=== PATIENT | female | born 1985 | race Caucasian/White ===

== ENCOUNTER 2023-12-07 03:29 | Emergency (ER) | payer BC, SELFPAY ==
[2023-12-07] VITALS (12 sets, daily range): BP systolic 118–150; BP diastolic 72–107; PULSE 82–96; O2SAT 96–99; BMI 32.0
--- NOTE | 2023-12-07 03:50 | ECG_ITS ---
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
--- NOTE | 2023-12-07 03:51 | CT_ITS ---
The [address] [address] Patient Name: JADA GILES MRN: [id number] date: 1985 Sex: F Assigned Patient Location: ER Current Patient Location: ER Accession/Order Number: [id number] Exam Date: 12/07/2023 04:08 Report Date: 12/07/2023 04:36 At the request of: AKOSUA SHORT Procedure: CT head/brain wo con EXAMINATION: CT Head without Contrast TECHNIQUE: Multiple axial noncontrast images of the brain were obtained and reformatted according to the standard protocol. Q DOCUMENTATION: At least one of the following dose reduction techniques was utilized: Iterative reconstruction, and/or Automatic Exposure Control, and/or mA/kV adjustment based on body size. INDICATION: Dizziness COMPARISON: None FINDINGS: Intracranial hemorrhage: No CT evidence of intraparenchymal, intraventricular, or extraaxial hemorrhage. Infarct/Vascular: No CT evidence of acute transcortical infarctions. Intracranial Mass: No evidence of intracranial mass. CSF Spaces: The ventricles, sulci, and cisterns are normal. Calvarium and Scalp: Unremarkable. Mastoid Air Cells: Clear. Paranasal Sinuses: Visualized paranasal sinuses are clear. Orbits: Orbits are unremarkable. CT/CT head/brain wo con IMPRESSION: No CT evidence of acute intracranial abnormalities. Electronically authenticated by: SHUKRI LOCKWOOD Date: 12/07/2023 04:36
--- NOTE | 2023-12-07 03:51 | ED.GENADUL1 ---
HPI HPI - General Adult General Chief complaint: Dizziness Stated complaint: dizziness Time Seen by Provider: 12/07/23 03:43 Source: patient Mode of arrival: walk-in Limitations: no limitations History of Present Illness HPI narrative: 38-year-old female presents for dizziness. She describes the dizziness as being lightheaded rather than spinning. She developed symptoms about 10 or 11 days ago and was seen at an urgent care center and was told she had fluid behind her right eardrum. She was put on Claritin-D and a steroid and Flonase and she got better for about a day but then it came back. She states that her right ear is slightly muffled in the left ear has no symptoms. She does not have a fever or sore throat or palpitations. No vomiting or diarrhea or abdominal pain or chest pain. Related Data Previous Rx's ?Medication ?Instructions ?Recorded amoxicillin 500 mg capsule 500 mg PO TID 10 days #30 caps 12/07/23 meclizine 25 mg tablet 25 mg PO TID PRN dizziness #20 tabs 12/07/23 Allergies Allergy/AdvReac Type Severity Reaction Status Date / Time latex Allergy Unknown Unknown Verified 12/07/23 03:38 levofloxacin [From Levaquin] Allergy Unknown Verified 12/07/23 03:38 Opioid HPI Opioid Management Most Recent Opioid Data: No Data to Display Review of Systems ROS Narrative A ten point review of systems is negative except as noted above. Exam Narrative Exam Narrative: Nurses note and vital signs reviewed and patient is not hypoxic. General: The patient appears well and in no apparent distress. Patient is resting comfortably on cart. Skin: Warm, dry, no pallor noted. There is no rash noted. Head: Normocephalic, atraumatic Eye: Normal conjunctiva, no drainage Ears, Nose, Mouth, and Throat: oral mucosa is moist. Nares patent. TM and external canal are normal in appearance. The right TM has a good light reflex but there is a large effusion behind the TM. External canal is normal. Cardiovascular: Regular Rate and Rhythm Respiratory: Patient is in no distress, no accessory muscle use, lungs are clear to auscultation, no wheezing, rales or rhonchi Back: non-tender GI: Soft and nontender Musculoskeletal: The patient has no evidence of calf tenderness, no pitting edema, symmetrical pulses noted bilaterally Neurological: A&O, normal speech; upper and lower extremity strength intact and symmetric Psychiatric: Cooperative Constitutional Vital Signs, click to edit/add: Last Vital Signs Pulse 87 12/07/23 04:02 Resp 17 12/07/23 04:02 BP 118/72 12/07/23 04:02 Pulse Ox 99 12/07/23 04:02 O2 Del Method Room Air 12/07/23 03:32 Course Vital Signs Vital signs: Vital Signs Pulse Rate 94 H 12/07/23 03:32 Respiratory Rate 18 12/07/23 03:32 Blood Pressure 147/99 H 12/07/23 03:32 Pulse Oximetry 98 12/07/23 03:32 Oxygen Delivery Method Room Air 12/07/23 03:32 Pulse Rate 87 12/07/23 04:02 Respiratory Rate 17 12/07/23 04:02 Blood Pressure 118/72 12/07/23 04:02 Pulse Oximetry 99 12/07/23 04:02 Oxygen Delivery Method Room Air 12/07/23 03:32 Medical Decision Making MDM Narrative Medical decision making narrative: Her workup including CT brain is negative. She will be discharged home on amoxicillin for otitis media and Antivert. Treatment diagnosis and follow-up were discussed with the patient. Differential Diagnosis Differential Diagnosis: Otitis media, otitis externa, foreign body, ear effusion Lab Data Lab results reviewed: Yes I reviewed the patient's lab results Labs: Lab Results 12/07/23 Range/Units 03:43 WBC 10.1 (4.0-11.0) 10^3/uL RBC 4.41 (4.20-5.40) 10^6/uL Hgb 13.6 (12.0-16.0) g/dL Hct 40.3 (36.0-48.0) % MCV 91.4 (81.0-99.0) fL MCH 30.8 (26.7-34.0) pg MCHC 33.7 (29.9-35.2) g/dL RDW 12.5 (11.0-15.0) % Plt Count 272 (150-450) 10^3/uL MPV 11.1 (9.5-13.5) fL Neut % (Auto) 69.0 (43.0-75.0) % Lymph % (Auto) 24.1 (20.5-60.0) % [place] % (Auto) 5.8 (1.7-12.0) % Eos % (Auto) 0.5 L (0.9-7.0) % Baso % (Auto) 0.3 (0.2-2.0) % Neut # (Auto) 7.0 H (1.4-6.5) 10^3/uL Lymph # (Auto) 2.4 (1.2-3.8) 10^3/uL [place] # (Auto) 0.6 (0.3-0.8) 10^3/uL Eos # (Auto) 0.1 (0.0-0.7) 10^3/uL Baso # (Auto) 0.0 (0.0-0.1) 10^3/uL Abs Immat Gran (auto) 0.03 (0.00-0.03) 10^3/uL Imm/Tot Granulo (auto) 0.3 (0.0-0.5) % Sodium 136 (136-145) mmol/L Potassium 3.5 (3.5-5.1) mmol/L Chloride 100 (98-107) mmol/L Carbon Dioxide 27.1 (21.0-32.0) mmol/L Anion Gap 12.4 BUN 13.0 (7.0-18.0) mg/dL Creatinine 0.90 (0.55-1.02) mg/dL Est GFR ( Amer) >60 (>=60) Est GFR (Non-Af Amer) >60 (>=60) BUN/Creatinine Ratio 14.4 Glucose 110 H (74-106) mg/dL Calcium 9.2 (8.5-10.1) mg/dL Imaging Data CT scan - head: Radiologist's impression: ITS Impressions Head CT 12/07/23 03:51 IMPRESSION: No CT evidence of acute intracranial abnormalities. Electronically authenticated by: SHUKRI LOCKWOOD Date: 12/07/2023 04:36 ECG Data Attestation: I personally reviewed and interpreted this ECG as follows: (EKG on my interpretation shows normal sinus rhythm with a rate of 90 and no acute change.) Discharge Plan Discharge Stand Alone Forms: Portal Instructions Chief Complaint: Dizziness Clinical Impression: Acute right otitis media Patient Disposition: Home, Self-Care Time of Disposition Decision: 04:44 Prescriptions / Home Meds: New amoxicillin 500 mg capsule 500 mg PO TID 10 Days Qty: 30 0RF meclizine 25 mg tablet 25 mg PO TID PRN (Reason: dizziness) Qty: 20 0RF Print Language: Mauritanian Instructions: Ear Infection (ED) Referrals: Jessica Dsouza MD [Primary Care Provider] - 1 week
[2023-12-07 03:58] LABS: Basophils Percent Auto 0.3 % (0.2-2.0); Eosinophils Absolute Auto 0.1 10^3/uL (0.0-0.7); Eosinophils Percent Auto 0.5 % (0.9-7.0); Hematocrit 40.3 % (36.0-48.0); Hemoglobin 13.6 g/dL (12.0-16.0); Immature Granulocytes Abs Auto 0.03 10^3/uL (0.00-0.03); Immature Granulocytes Pct Auto 0.3 % (0.0-0.5); Lymphocytes Absolute Auto 2.4 10^3/uL (1.2-3.8); Lymphocytes Percent Auto 24.1 % (20.5-60.0); Mean Corpuscular HGB Conc 33.7 g/dL (29.9-35.2); Mean Corpuscular Hemoglobin 30.8 pg (26.7-34.0); Mean Corpuscular Volume 91.4 fL (81.0-99.0); Mean Platelet Volume 11.1 fL (9.5-13.5); Monocytes Absolute Auto 0.6 10^3/uL (0.3-0.8); Monocytes Percent Auto 5.8 % (1.7-12.0); Platelet Count 272 10^3/uL (150-450); Red Blood Count 4.41 10^6/uL (4.20-5.40); Red Cell Distribution Width 12.5 % (11.0-15.0); White Blood Count 10.1 10^3/uL (4.0-11.0)
[2023-12-07] MEDS: MECLIZINE HCL 12.5 MG TABLET 25 MG PO (04:04)
[2023-12-07 04:08] LABS: Anion Gap 12.4; BUN Creatinine Ratio 14.4; Calcium 9.2 mg/dL (8.5-10.1); Carbon Dioxide 27.1 mmol/L (21.0-32.0); Chloride 100 mmol/L (98-107); Estimated GFR (African America >60 (>=60); Estimated GFR (Non-African Ame >60 (>=60); Glucose 110 mg/dL (74-106); Potassium 3.5 mmol/L (3.5-5.1); Sodium 136 mmol/L (136-145)
[2023-12-07] MEDS: AMOXICILLIN 500 MG CAPSULE PO (05:03)
== END 2023-12-07 05:06 | disposition home or self-care (01) ==
PROVIDERS: Emergency Provider Emergency Medicine; PCP Family Medicine
DX: H66.91 Otitis media, unspecified, right ear (principal); R42 Dizziness and giddiness
CPT/HCPCS: 36415; 70450; 80048; 85025; 93005; 99285

== ENCOUNTER 2024-12-19 11:27 | Emergency (ER) | payer BC, SELFPAY ==
--- OUTSIDE RECORDS SUMMARY | 2024-12-08 10:30 | XMS_ITS | Encounter Summary ---
Author Organization [facility] Address [facility] [place] [address] Care Team Providers Care Asp Net Developer Name Role Phone Jessica Dsouza MD Unavailable [phone] Source Comments In the event this information is protected by the Federal Confidentiality of Alcohol and Drug AbusePatient Records regulations: The Federal rules restrict any use of the information to criminally investigate or prosecute any alcohol or drug abuse patient.[facility] Reason for Visit * Reason Comments Physical Therapy * Physical Therapy (Routine) - Authorized Specialty Diagnoses / Procedures Referred By Contac t Referred To Contact [facility] Diagnoses Dizzy Vertigo Procedures PHYSICAL THERAPY EVALUATION HIGH COMPLEX [address] [place] [address] [address] [place] [address] Phone: tel: fax: [facility] [address] [place] [phone] Referral ID Status Reason Start Date Expiration Date Visits Requested Visits Authorized [id number] Authorized Auto-Generat ed Referral 10/17/2024 10/16/2025 40 40 Encounter Details Date Type Department Care Team (Latest Contact Info) Description 12/08/2024 10:30 AM EDT OT/PT/Speech Visit Physical Therapy [address] [place] [address] Marizol Patel, PT [address] [place] [address] Dizziness (Primary Dx); Cervicalgia; Headaches Social History Tobacco Use Types Packs/Day Years Used Date Smoking Tobacco: Never Passive Smoke Exposure: Never Smokeless Tobacco: Never Alcohol Use Standard Drinks/Week Comments Not Currently 0 (1 standard drink = 0.6 oz pur e alcohol) Area Deprivation Index Answer Date Real rded National Score (1-100), lower number is lower ri sk 61 08/01/2024 State Score (1-10), lower number is lower risk 4 08/01/2024 Data from: https://www.neighborhoodatlas.medicine.[facility]/. Last address used for calculation [address] [facility] [address] 08/01/2024 Comments No Sex and Gender Information Value Date Recorded Sex Assigned at Not on file Legal Sex Female 11:23 AM EDT Gender Identity Not on file Sexual Orientation Not on file documented as of this encounter Progress Notes * Marizol Patel, PT - 12/08/2024 10:48 AM EDT Episode Visit Count: 6 Therapist That Will Accept/Oversee The Plan Of Care: Marizol Patel Start of Care Date: 10/27/24 Onset Date: 11/18/23 [facility] PHYSICAL THERAPY TREATMENT NOTE ASSESSMENT: Tanja Soto tolerated the session with no issues. She demonstrated difficulty with increased neck pain and DOSS with stress from back to school (both job and her kids). Good in-session response to IASTM/MT with edu on carryover for home. The patient will continue to benefit from ongoing skilled physical therapy to progress toward set goals. 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 Got tool to use on neck. Pain: Pain Pain Level: 5 Pain Location: (UT/Scalenes R and pain with rotation going up into occiput) Description: Aching, Tightness OBJECTIVE MEASURES WITH LEVEL OF FUNCTION: Oculomotor Testing Fixation Present X1 Viewing - Horizontal: 20-25s, Recovery time at about 45s X1 Viewing - Vertical: 30s, Recovery time at 20s Cervical Spine ROM Cervical Flexion AROM: (tight both sides) Cervical Extension AROM: Minimal limitation Cervical Side-Bend Right AROM: Normal Cervical Side-Bend Left AROM: Normal Cervical Rotation Right AROM: Normal Cervical Rotation Left AROM: (Hypermobile) Upper Cervical AROM: C1 WNL TREATMENT: Manual Therapy: 1: IASTM Supine to R UT, Paraspinals, SO, Scalenes-- educated pt on how to use IASTM at home including for MFR/TPR 2: Cupping to R UT TrP with petechiae noted upon removal. 3: Soft Tennis Ball SMFR balls placed on T3 with [place] roccos x 10 and 30 degrees trunk rotation x 10 4: Edu on balls in sock for occiput with nodding 5: retraction mobilization 6: SOR Skilled Intervention: Manual skills to improve joint mobility, ROM, and decrease pain. Utilized anatomy knowledge of the clinician, and assessment of patient's response to intervention. Neuromuscular Re-Education: 1: HEP REview- Continue without changes at this time- all ex's still at appropriately challenging area. Also- as pt returns back to work, finding a pattern of fitting in ex's that works for her needed. Problemsolving with pt. Skilled Intervention: Skilled judgment used to assess appropriate program for balance and coordination activity. Patient education as noted. Skilled judgement used to assess appropriate program for vestibular adaptation, substitution and balance coordination activities. Home Exercise Program Assigned: 1: Access Code: [email or web address] URL: [email or web address] Date: 10/27/2024 Prepared by: Marizol Patel Exercises - Gaze Stabilization HORIZONTAL - 3 x daily - 7 x weekly - 1 sets - 1 reps - Seated Gaze Stabilization with Head Nod - 3 x daily - 7 x weekly - 1 sets - 1 reps Patient Education - What Is Vestibular Hypofunction? 2: OA nods supine 3: R C1 ROT SNAG with towel 4: Ball on wall x 10 5-10s holds 5: R Sidelying tuck and lift hold 3-5s x 5 reps daily 6: EC [place] FOAM 7: Ball Circles Waist level CCW Habituation (May progress to CW or full body length when asymptomatic with CCW) Billing Manual TherapyTreatment Minutes: 33 Neuromuscular Re-Education Treatment Minutes: 10 Skilled Treatment Time Minutes (timed and untimed codes): 43 Total Session Time (minutes): 43 Session Start Time : 1045 Session Stop Time : 1128 Marizol Patel PT documented in this encounter Plan of Treatment Upcoming Encounters Date Type Department Care Team (Latest Contact Info) Description 01/02/2025 4:15 PM EDT OT/PT/Speech Visit Physical Therapy [address] [place] [address] Marizol Patel, PT [address] [id number] (ICD-10-CM) - Dizzy 01/08/2025 9:00 AM EDT Office Visit Rheumatology [address] [place] [address] Kaia Prakash APRN.BACK END ENGINEER [address] [place] [address] [facility] Clinic documented as of this encounter Visit Diagnoses Diagnosis Dizziness- Primary Dizziness and giddiness Cervicalgia Headaches documented in this encounter Care Teams Asp Net Developer Relationship Specialty Start Date End Date Jessica Dsouza MD [address] [place] [address] Referring Family Medicine 07/04/24 documented as of this encounter
[2024-12-19] VITALS (10 sets, daily range): BP systolic 118–129; BP diastolic 76–85; PULSE 117–130; TEMP 36.9; O2SAT 100; BMI 32.0
--- OUTSIDE RECORDS SUMMARY | 2024-12-19 11:34 | XMS_ITS | Clinical Summary ---
Author Organization [facility] Address [address] [place] [address] Care Team Providers Care Garden Tractor Mechanic Name Role Phone Jessica Dsouza MD Unavailable [phone] Allergies Active Allergy Reactions Criticality Noted Date Comments Adhesive Tape-Silicones Rash 08/01/2024 Cimetidine Anaphylaxis High 04/19/1987 Latex Itching,Other: See Comments,Rash Low 04/19/2011 Levofloxacin Vomiting 12/01/2008 Medications valsartan (DIOVAN) 40 mg tablet 05/20/2024 Active amoxicillin-cla vulanate potassium (AUGMENTIN) 875-125 mg per tablet 07/30/2024 Active mv-mn/iron fum/FA/omega3,6 ,9#3 (WOMEN'S MULTI ORAL) Take by mouth. Active meclizine (ANTIVERT) 25 mg tab Take 25 mg by mouth as needed. Active clonazePAM (KLONOPIN) 0.5 mg tabletIndicatio ns:Globus sensation Take 0.5 tablets by mouth daily at bedtime for 30 days. 15 tablet 09/18/2024 Active Active Problems Problem Noted Date Diagnosed Date Dizzy 10/27/2024 Vertigo 10/27/2024 Cervicalgia 10/27/2024 Balance problem 10/27/2024 Encounters Date Type Department Care Team Description 12/08/2024 10:30 AM EDT OT/PT/Speech Visit Physical Therapy [address] [place], [place] [id number] Marizol Patel, PT Dizziness (Primary Dx); Cervicalgia; Headaches 12/08/2024 Travel 12/01/2024 2:30 PM EDT OT/PT/Speech Visit Physical Therapy [address] [place] [address] SeeMarizol benitez, PT Dizzy (Primary Dx); Cervicalgia; Balance problem 12/01/2024 Travel 11/29/2024 Patient Msg Rheumatology [address] [address] Provider, [facility] EDS clinic 11/27/2024 Get Medical Advice Neurology [address] [place] [address] Irving Raza MD Referral to Rheumatology 11/27/2024 Travel 11/24/2024 3:15 PM EDT OT/PT/Speech Visit Physical Therapy [address] [place] [address] SeeMarizol benitez, PT Dizzy (Primary Dx); Cervicalgia; Balance problem 11/24/2024 Travel 11/16/2024 8:15 AM EDT OT/PT/Speech Visit Physical Therapy [address] [place] [address] Rivas Patela, PT Dizzy (Primary Dx); Cervicalgia; Balance problem 11/16/2024 Travel 11/08/2024 2:30 PM EDT OT/PT/Speech Visit Physical Therapy [address] [place] [address] SeeRivas beniteza, PT Dizzy (Primary Dx); Cervicalgia; Balance problem 11/08/2024 Travel 11/02/2024 3:00 PM EDT Office Visit Neurology [address] [place] [address] Irving Raza MD Vertigo (Primary Dx) 10/27/2024 9:00 AM EDT OT/PT/Speech Visit Physical Therapy [address] [place] [address] Rivas Patela, PT Cervicalgia (Primary Dx); Dizzy; Vertigo; Balance problem 10/27/2024 Travel 10/25/2024 Travel 09/18/2024 10:00 AM EDT Office Visit Neurology [address] [place] [address] Irving Raza MD Vertigo (Primary Dx); Dizzy; Chronic daily headache; Globus sensation; Numbness and tingling from Last 3 Months Social History Tobacco Use Types Packs/Day Years Used Date Smoking Tobacco: Never Passive Smoke Exposure: Never Smokeless Tobacco: Never Tobacco Cessation:Counseling Given: Not Answered Alcohol Use Standard Drinks/Week Comments Not Currently 0 (1 standard drink = 0.6 oz pur e alcohol) Area Deprivation Index Answer Date Real rded National Score (1-100), lower number is lower ri sk 61 08/01/2024 State Score (1-10), lower number is lower risk 4 08/01/2024 Data from: https://www.neighborhoodatlas.medicine.[facility].edu/. Last address used for calculation [address] 08/01/2024 Comments No Sex and Gender Information Value Date Recorded Sex Assigned at Not on file Legal Sex Female 11:23 AM EDT Gender Identity Not on file Sexual Orientation Not on file Last Filed Vital Signs Vital Sign Reading Time Taken Comments Blood Pressure 118/81 11/02/2024 2:57 PM EDT Pulse 82 11/02/2024 2:57 PM EDT Temperature 36.6 C (97.8 F) 08/01/2024 10:23 AM EDT Respiratory Rate 20 08/01/2024 10:2 3 AM EDT Oxygen Saturation 100% 09/18/2024 9:56 AM EDT Inhaled Oxygen Concentration - - Weight 79.7 kg (175 lb 11.3 oz) 11/02/2024 2:57 PM EDT Height 157.5 cm (5' 2 ) 11/02/2024 2:57 PM EDT Body Mass Index 32.14 11/02/2024 2:57 PM EDT Plan of Treatment Upcoming Encounters Date Type Department Care Team (Latest Contact Info) Description 01/02/2025 4:15 PM EDT OT/PT/Speech Visit Physical Therapy [address] [facility] [address] Marizol Patel, PT [address] [facility] [address] R48 (ICD-10-CM) - Dizzy 01/08/2025 9:00 AM EDT Office Visit Rheumatology [address] [facility] [address] [address] Kaia Prakash APRN.DRIER TENDER NAPHTHAL[place] [address] [place] [address] EDS Clinic Health Maintenance Due Date Last Done Comments Anxiety Screening 02/22/2004 Depression Screening 02/22/2004 HIV Screening 02/22/2004 Hepatitis C Screening 02/22/2004 DTaP,Tdap,Td Vaccine (1 - Tdap) 2005 Hepatitis B Vaccine (1 of 3 - 19+ 3-dose series) 02/21 Cervical Cancer Screening 2007 HPV Vaccine (1 - 3-dose SCDM series) 2013 Influenza Vaccine (#1) 2024 Procedures Procedure Name Priority Date/Time Associated Diagnosis Comments ANTI NEUTRO CYTO AB Routine 09/18/2024 1 1:35 AM EDT Numbness and tingling TOM/ANGIOTENSIN BLD Routine 09/18/2024 1 1:35 AM EDT Numbness and tingling VALDEMAR PANEL BLOOD SCRN Routine 09/18/2024 11:35 AM EDT Numbness and tingling RHEUMATOID FACTOR BL Routine 09/18/2024 11:35 AM EDT Numbness and tingling C-REACTIVE PROTEIN (CRP) Routine 09/18/2024 11:35 AM EDT Numbness and tingling SED RATE WESTERGREN Routine 09/18/2024 1 1:35 AM EDT Numbness and tingling TSH BLD Routine 09/18/2024 11:35 AM EDT Dizzy Vertigo Numbness and tingling COMPREHENSIVE METABOLIC PANEL Routine 09/18/2024 11:35 AM EDT Numbness and tingling CBC + DIFF Routine 09/18/2024 11:35 AM EDT Numbness and tingling from Last 3 Months Results * THYROID STIMULATING HORMONE (09/18/2024 11:35 AM EDT) TSH 1.280 0.270 - 4.200 mIU/L 09/18/2024 12:48 PM EDT [facility] Comment: If the patient is , TSH reference range varies by gestational period: First Trimester (weeks 9-12): 0.180-2.990 mIU/L Second Trimester: 0.110-3.980 mIU/L Third Trimester: 0.480-4.710 mIU/L Sameer Walton et al. A Practical Approach for the Verifications and Determination of Site- and Trimester-Specific Reference Intervals for Thyroid Function tests in . Thyroid, 2019:29:3:412-420. Frederic Balbuena et al. 2017 Guidelines of the [place] Thyroid Association for the Diagnosis and Management of Thyroid Disease during and the . Thyroid, 2017:27:3:315-389. Blood BLOOD SPECIMEN / Unknown Venipuncture / Unknown 09/18/2024 11:35 AM EDT 09/18/2024 11:35 AM EDT us Irving Raza MD LABORATORY Final Result [facility] [address] [place] [address], * SEDIMENTATION RATE, WESTERGREN (09/18/2024 11:35 AM EDT) Sed Rate, Westergren 20 0 - 20 mm/hr 09/18/2024 3:35 PM EDT [facility] Blood BLOOD SPECIMEN / Unknown Venipuncture / Unknown 09/18/2024 11:35 AM EDT 09/18/2024 11:35 AM EDT Irving Raza MD LABORATORY Final Result [facility] [address] [place] [address], [place] * RHEUMATOID FACTOR (09/18/2024 11:35 AM EDT) [facility] Rheumatoid Factor <10 <16 IU/mL 09/18/2024 9:41 PM EDT [facility] Blood BLOOD SPECIMEN / Unknown Venipuncture / Unknown 09/18/2024 11:35 AM EDT 09/18/2024 11:35 AM EDT us Irving Raza MD LABORATORY Final Result [facility] [address] [facility] [place] [address], * COMPREHENSIVE METABOLIC PANEL (09/18/2024 11:35 AM EDT) [facility] Protein, Total 8.0 6.3 - 8.0 g/dL 09/18/2024 12:52 PM EDT [facility] Albumin 4.7 3.9 - 4.9 g/dL 09/18/2024 12:52 PM EDT [facility] Calcium, Total 9.3 8.5 - 10.2 mg/dL 09/18/2024 12:52 PM EDT [facility] Bilirubin, Total 0.6 0.2 - 1.3 mg/dL 09/18/2024 12:52 PM EDT [facility] Alkaline Phosphatase 106 34 - 123 U/L 09/18/2024 12:52 PM EDT [facility] AST 14 13 - 35 U/L 09/18/2024 12:52 PM EDT [facility] ALT 13 7 - 38 U/L 09/18/2024 12:52 PM EDT [facility] Glucose 94 74 - 99 mg/dL 09/18/2024 12:52 PM EDT [facility] Comment: The [place] Diabetes Association (ADA) provides guidance for cutoff values for fasting glucose and random glucose. The ADA defines fasting as no caloric intake for at least 8 hours. Fasting plasma glucose results between 100 to 125 mg/dL indicate increased risk for diabetes (prediabetes). Fasting plasma glucose results greater than or equal to 126 mg/dL meet the criteria for diagnosis of diabetes. In the absence of unequivocal hyperglycemia, results should be confirmed by repeat testing. In a patient with classic symptoms of hyperglycemia or hyperglycemic crisis, random plasma glucose results greater than or equal to 200 mg/dL meet the criteria for diagnosis of diabetes. Reference: Standards of Medical Care in Diabetes 2016, [place] Diabetes Association. Diabetes Care. 2016.39(Suppl 1). BUN 9 7 - 21 mg/dL 09/18/2024 12:52 PM EDT [facility] Creatinine 0.73 0.58 - 0.96 mg/dL 09/18/2024 12:52 PM EDT [facility] Sodium 139 136 - 144 mmol/L 09/18/2024 12:52 PM EDT [facility] Potassium 4.0 3.7 - 5.1 mmol/L 09/18/2024 12:52 PM EDT [facility] Chloride 104 98 - 107 mmol/L 09/18/2024 12:52 PM EDT [facility] CO2 25 22 - 30 mmol/L 09/18/2024 12:52 PM EDT [facility] Anion Gap 10 8 - 15 mmol/L 09/18/2024 12:52 PM EDT [facility] Estimated Glomerular Filtration Rate 108 >=60 mL/min/1.7 3m 09/18/2024 12:52 PM EDT [facility] Comment:Estimated Glomerular Filtration Rate (eGFR) is calculated using the 2020 CKD-EPI creatinine equation. This equation utilizes serum creatinine, sex, and age as parameters. The creatinine assay has traceable calibration to isotope dilution- mass spectrometry. Refer to KDIGO guidelines for clinical interpretation. In patients with unstable renal function, e.g. those with acute kidney injury, the eGFR may not accurately reflect actual GFR. Blood BLOOD SPECIMEN / Unknown Venipuncture / Unknown 09/18/2024 11:35 AM EDT 09/18/2024 11:35 AM EDT us Irving Raza MD LABORATORY Final Result [facility] [address] [place] [address], * COMPLETE BLOOD COUNT AND DIFFERENTIAL (09/18/2024 11:35 AM EDT) WBC 5.47 3.70 - 11.00 k/uL 09/18/2024 12:23 PM EDT [facility] RBC 4.63 3.90 - 5.20 m/uL 09/18/2024 12:23 PM [facility] Hemoglobin 13.9 11.5 - 15.5 g/dL 09/18/2024 12:23 PM [facility] Hematocrit 41.6 36.0 - 46.0 % 09/18/2024 12:23 PM [facility] MCV 89.8 80.0 - 100.0 fL 09/18/2024 12:23 PM [facility] MCH 30.0 26.0 - 34.0 pg 09/18/2024 12:23 PM [facility] MCHC 33.4 30.5 - 36.0 g/dL 09/18/2024 12:23 PM [facility] RDW-CV 12.0 11.5 - 15.0 % 09/18/2024 12:23 PM [facility] Platelet Count 348 150 - 400 k/uL 09/18/2024 12:23 PM [facility] MPV 10.5 9.0 - 12.7 fL 09/18/2024 12:23 PM [facility] Neutrophils % 63.3 % 09/18/2024 12:23 PM [facility] Abs Neut 3.46 1.45 - 7.50 k/uL 09/18/2024 12:23 PM [facility] Lymphocytes % 27.2 % [facility]24 [facility] Abs Lymph 1.49 1.00 - 4.00 k/uL 09/18/2024 12:23 PM [facility] Monocytes % 6.9 % 09/18[facility]2024 12[facility] Abs Ray 0.38 <0.87 k/uL 09/18/2024 12:23 PM [facility] Eosinophils % 1.5 % 09/18/2024 12:23 PM [facility] Abs Eosin 0.08 <0.46 k/uL 09/18/2024 12:23 PM [facility] Basophils % 0.7 % 09/18/2024 12:23 PM [facility] Abs Baso 0.04 <0.11 k/uL 09/18/2024 12:23 PM [facility] Immature Granulocytes % 0.4 % 09/18/2024 12:23 PM EDT [facility] Abs Immature Gran <0.03 <0.10 k/uL 025 12:23 PM EDT [facility] NRBC 0.0 /100 WBC 09/18/2024 12:23 PM EDT [facility] Absolute nRBC <0.01 <0.01 k/uL 09/18/2024 12:23 PM EDT [facility] Diff Type Auto 09/18/2024 12:23 PM EDT [facility] Blood BLOOD SPECIMEN / Unknown Venipuncture / Unknown 09/18/2024 11:35 AM EDT 09/18/2024 11:35 AM EDT Irving Raza MD LABORATORY Final Result Performing Organization Address City/[facility]/ZIP Co de Phone Number [facility] [id number] [place] [address], [place] * (ABNORMAL) C-REACTIVE PROTEIN (09/18/2024 11:35 AM EDT) Pathologist [facility] CRP 1.1(H) <0.9 mg/dL 09/18/2024 12:52 PM EDT [facility] Blood BLOOD SPECIMEN / Unknown Venipuncture / Unknown 09/18/2024 11:35 AM EDT 09/18/2024 11:35 AM EDT Irving Raza MD LABORATORY Final Result Performing Organization Address [facility]/ZIP Co de Phone Number [facility] [id number] [place] [address], [place] * ANTI NEUTRO CYTO AB (09/18/2024 11:35 AM EDT) c-ANCA Fluorescence Negative Negative 09/19/2024 2:23 PM EDT [facility] p-ANCA Fluorescence Negative Negative 09/19/2024 2:23 PM EDT [facility] Interpretation (ANCA) Negative for C-ANCA and P-ANCA by indirect immunofluoresc ence. A negative result cannot reliably rule out ANCA-associate d vaculitides especially when in remission. Clinical correlation is required. 09/19/2024 2:23 PM EDT [facility] Staff Review (ANCA) No review performed. 09/19/2024 2:23 PM EDT [facility] Blood BLOOD SPECIMEN / Unknown Venipuncture / Unknown 09/18/2024 11:35 AM EDT 09/18/2024 11:35 AM EDT Narrative [facility] - 09/19/2024 2:23 PM EDT This test is used as an aid in diagnosis of patients with autoimmune vasculitides. The final interpretation should be done in conjunction with ANCA test results and clinical correlation. Irving Raza MD LABORATORY Final Result Performing Organization Address [facility] Co de Phone Number [facility] [place] [address], [place] * VALDEMAR PANEL BLOOD SCRN (09/18/2024 11:35 AM EDT) VALDEMAR Scr Qual Negative Negative 09/19/2024 11:56 AM EDT [facility] Comment:The qualitative anti nuclear antibody screen test performed using the following antigens: dsDNA, Chromatin, Ribosomal P, SS-A 60, SS-A 52, SS-B, Sm, SmRNP, INSTRUMENT AND CONTROL SERVICE PERSON A, INSTRUMENT AND CONTROL SERVICE PERSON 68, Scl-70, Hafsa-1, and Centromere B. Methodology: Multiplex flow immunoassay. Blood BLOOD SPECIMEN / Unknown Venipuncture / Unknown 09/18/2024 11:35 AM EDT 09/18/2024 11:35 AM EDT Irving Raza MD LABORATORY Final Result Performing Organization Address [facility] Co de Phone Number [facility] [address] [place] [address], [place] * TOM/ANGIOTENSIN BLD (09/18/2024 11:35 AM EDT) Angiotensin Converting Enzyme 24 <=52 U/L 09/18/2024 7:50 PM EDT [facility] Comment: Artificially low TOM levels may be found for patients taking TOM inhibitors or after the administration of gadolinium. This test was developed, and its performance characteristics determined by the [facility] Department of Pathology and Laboratory Medicine. It has not been cleared or approved by the FDA. The [facility] Department of Pathology and Laboratory Medicine is regulated under CLIA as qualified to perform high- complexity testing. This test is used for clinical purposes. It should not be regarded as investigational or for research. Blood BLOOD SPECIMEN / Unknown Venipuncture / Unknown 09/18/2024 11:35 AM EDT 09/18/2024 11:35 AM EDT us Irving Raza MD LABORATORY Final Result [facility] [address] [facility] [place] [address] [place] [address], [place] from Last 3 Months Insurance [employer] P[employer] Care Teams Garden Tractor Mechanic Relationship Specialty Start Date End Date Jessica Dsouza MD [address] [place] [address] Referring Family Medicine 07/04/24
--- OUTSIDE RECORDS SUMMARY | 2024-12-19 11:34 | XMS_ITS | Clinical Summary ---
Author Organization [facility] Address [address] [place] [address] Phone Care Team Providers Care Director Appointment Name Role Phone Unavailable Primary Care Provider Unavailabl e Social History Tobacco Use Types Packs/Day Years Used Date Smoking Tobacco: Never Assessed Comments Unknown Sex and Gender Information Value Date Recorded Sex Assigned at Not on file Legal Sex Female 10:50 AM EST Gender Identity Not on file Sexual Orientation Not on file Plan of Treatment Not on file
--- OUTSIDE RECORDS SUMMARY | 2024-12-19 11:34 | XMS_ITS | Encounter Summary ---
Author Organization [facility] Address [address] [place] [address] Phone Care Team Providers Care Transfer Professor Name Role Phone Unavailable Primary Care Provider Unavailabl e Encounter Details Date Type Department Care Team (Late st Contact Info) Description 07/09/2017 Orders Only [facility] [address] [place] [address] Conversion, Onbase Social History Tobacco Use Types Packs/Day Years Used Date Smoking Tobacco: Never Assessed Comments Unknown Sex and Gender Information Value Date Recorded Sex Assigned at Not on file Legal Sex Female 10:50 AM EST Gender Identity Not on file Sexual Orientation Not on file documented as of this encounter Plan of Treatment Scheduled Orders Name Type Priority Associated Diagnoses Orde r Schedule OUTSIDE LAB SCAN Lab Ordered: 07/09/2017 documented as of this encounter Visit Diagnoses Not on filedocumented in this encounter
--- OUTSIDE RECORDS SUMMARY | 2024-12-19 11:34 | XMS_ITS | Clinical Summary ---
Author Organization [facility] Address [address] [place] [address] Care Team Providers Care Matrix Drier Tender Name Role Phone Unavailable Primary Care Provider Unavailabl e Social History Tobacco Use Types Packs/Day Years Used Date Smoking Tobacco: Never Assessed [place] Safety & Environment Answer Date Rec orded Fear of Current or Ex-Partner Not on file Emotionally Abused Not on file 06/10/2023 Physically Abused Not on file 06/10/2023 Sexually Abused Not on file 06/10/2023 Physically or Sexually Abused Not on file Comments Unknown Sex and Gender Information Value Date Recorded Sex Assigned at Not on file Legal Sex Female 12:38 AM EDT Gender Identity Not on file Sexual Orientation Not on file Last Filed Vital Signs Vital Sign Reading Time Taken Comments Blood Pressure 138/103 11/13/2020 9:27 AM EDT Pulse 98 11/13/2020 9:27 AM EDT Temperature - - Respiratory Rate - - Oxygen Saturation - - Inhaled Oxygen Concentration - - Weight 74.8 kg (165 lb) 11/13/2020 9:19 AM EDT Height 157.5 cm (5' 2 ) 11/13/2020 9:19 AM EDT Body Mass Index 30.18 11/13/2020 9:19 AM EDT Plan of Treatment Not on file
--- OUTSIDE RECORDS SUMMARY | 2024-12-19 11:34 | XMS_ITS | Clinical Summary ---
Author Organization [facility] Address [address] [id number] Care Team Providers Care Shipping/Receiving Manager Name Role Phone Unavailable Primary Care Provider Unavailabl e Social History Tobacco Use Types Packs/Day Years Used Date Smoking Tobacco: Never Assessed Comments Unknown Sex and Gender Information Value Date Recorded Sex Assigned at Not on file Legal Sex Female 3:10 PM EST Gender Identity Not on file Sexual Orientation Not on file Plan of Treatment Health Maintenance Due Date Last Done Comments Hepatitis C Screening 1986 DTaP,Tdap,and Td Vaccines (1 - Tdap) 2005 Hepatitis B Vaccine ages 19 years and older (1 of 3 - 19+ 3-dose series) 2005 Cervical Cancer Screening: Cytology 2007 COVID-19 Vaccine (2023-2 5 season) 2023 Influenza Vaccine (#1) 2024 Respiratory Syncytial Virus (RSV) or ages 60 years and older (1 - 1-dose 75+ series) 2061 Pneumococcal Combined Aged Out No evangelina barney eligible based on patient's age to complete this topic Respiratory Syncytial Virus (RSV) ages 0 thru 19 months Aged Out No longer eligible based on patient's age to complete this topic
--- OUTSIDE RECORDS SUMMARY | 2024-12-19 11:34 | XMS_ITS | Encounter Summary ---
Author Organization [facility] Address [address] [place] [address] Care Team Providers Care Assembler Equipment Name Role Phone Jessica Dsouza MD Unavailable [phone] Source Comments In the event this information is protected by the Federal Confidentiality of Alcohol and Drug AbusePatient Records regulations: The Federal rules restrict any use of the information to criminally investigate or prosecute any alcohol or drug abuse patient.[facility] Encounter Details Date Type Department Care Team ([facility] Contact Info) Description 11/29/2024 Patient Msg Rheumatology [address] [id number] Provider, [facility] EDS clinic Social History Tobacco Use Types Packs/Day Years [...] is lower risk 4 08/01/2024 Data from: https://www.neighborhoodatlas.medicine.[facility].edu/. Last address used for calculation [address] [place] [address] 08/01/2024 Comments No Sex and Gender Information Value Date Recorded Sex Assigned at Not on file Legal Sex Female 11:23 AM EDT Gender Identity Not on file Sexual Orientation Not on file documented as of this encounter Plan of Treatment Upcoming Encounters Date Type Department Care Team (Latest Contact Info) Description 01/02/2025 4:15 PM EDT OT/PT/Speech Visit Physical Therapy [address] [facility] [place] [address] Marizol Patel, PT [address] [place] [address] R42 (ICD-10-CM) - Dizzy 01/08/2025 9:00 AM EDT Office Visit Rheumatology [address] [place] [address] Kaia Prakash APRN.ADULT CAREGIVER [address] [place] [address] EDS Clinic documented as of this encounter Visit Diagnoses Not on filedocumented in this encounter Care Teams Assembler Equipment Relationship Specialty Start Date End Date Jessica Dsouza MD [address] [place] [address] Referring Family Medicine 07/04/24 documented as of this encounter
--- OUTSIDE RECORDS SUMMARY | 2024-12-19 11:34 | XMS_ITS | Encounter Summary ---
Author Organization [facility] Address [address] [place] [address] Phone Care Team Providers Care Campus Recruiting Intern Name Role Phone Unavailable Primary Care Provider Unavailabl e Encounter Details Date Type Department Care Team (Late st Contact Info) Description 06/08/2017 Orders Only [facility] [address] [place] [address] Conversion, Onbase Social History Tobacco Use Types [...] r Schedule OUTSIDE LAB SCAN Lab Ordered: 06/08/2017 documented as of this encounter Visit Diagnoses Not on filedocumented in this encounter
--- OUTSIDE RECORDS SUMMARY | 2024-12-19 11:34 | XMS_ITS | Encounter Summary ---
Author Organization [facility] Address [address] [place] [address] Phone Care Team Providers Care Electronic Technologist Name Role Phone Unavailable Primary Care Provider Unavailabl e Encounter Details Date Type Department Care Team (Late st Contact Info) Description 08/18/2017 Orders Only [facility] [address] [place] [address] Conversion, Onbase Social History Tobacco Use Types [...] r Schedule OUTSIDE LAB SCAN Lab Ordered: 08/18/2017 documented as of this encounter Visit Diagnoses Not on filedocumented in this encounter
--- OUTSIDE RECORDS SUMMARY | 2024-12-19 11:34 | XMS_ITS | Encounter Summary ---
Author Organization [facility] Address [address] [place] [address] Phone Care Team Providers Care Roll Inspector Name Role Phone Unavailable Primary Care Provider Unavailabl e Encounter Details Date Type Department Care Team (Late st Contact Info) Description 08/23/2017 Orders Only [facility] [address] [place] [address] Conversion, Onbase Social History Tobacco Use Types [...] r Schedule OUTSIDE LAB SCAN Lab Ordered: 08/23/2017 documented as of this encounter Visit Diagnoses Not on filedocumented in this encounter
--- OUTSIDE RECORDS SUMMARY | 2024-12-19 11:34 | XMS_ITS | Clinical Summary ---
Author Organization [facility] Address [address] [place] [address] Care Team Providers Care Channeling Machine Operator Name Role Phone Srinivasa Pop DO Unavailable [phone] Jessica Dsouza MD Primary Care Provider [phone] Allergies Active Allergy Reactions Criticality Noted Date Comments Cimetidine Anaphylaxis High 12/07/2022 Latex Itching,Other,Rash Low 12/07/2022 Levofloxacin 12/07/2022 Wound Dressing Adhesive Rash High 12/07/2022 Medications Multiple Vitamin (Multivitamin Adult) tablet 1 (one) time each day at the same time Active ibuprofen 200 MG tablet Take by mouth Active fluticasone (Flonase) 50 MCG/ACT nasal spray Administer 2 sprays into each nostril Daily 4 Active valsartan (Diovan) 40 MG tablet 5 Active Active Problems Problem Noted Date Diagnosed Date Meniere's disease of right ear 02/14/2024 PCOS (polycystic ovarian syndrome) 01/26/2024 Abnormal weight gain 01/26/2024 Acute otitis media with effusion of left ear 12/2023 Adult ADHD 01/26/2024 Contracture, right ankle 01/26/2024 Dysfunctional uterine bleeding 01/26/2024 Impingement syndrome of right shoulder 3 Cervical radiculopathy 12/07/2022 Family History Medical History Relation Name Comments Hypertension Father Bryant Anesthesia problems Mother Jazmine Arthritis Mother Jazmine Cancer Paternal Grandmother Mary Thyroid disease Sister Relation Name Status Comments Father Bryant Alive Mother Jazmine Alive Paternal Grandmother Mary Sister Social History Tobacco Use Types Packs/Day Years Used Date Smoking Tobacco: Never Smokeless Tobacco: Never Tobacco Cessation:Counseling Given: Not Answered Alcohol Use Standard Drinks/Week Comments Not Currently 0 (1 standard drink = 0.6 oz pure alcohol) 3-4 times a year (1-2 cans each time) Comments Unknown Sex and Gender Information Value Date Recorded Sex Assigned at Not on file Legal Sex Female 7:26 PM EDT Gender Identity Not on file Sexual Orientation Not on file Last Filed Vital Signs Vital Sign Reading Time Taken Comments Blood Pressure 132/81 08/18/2024 3:37 PM EDT Pulse 93 08/18/2024 3:37 PM EDT Temperature 36.9 C (98.4 F) 04/14/2023 7:57 AM EST Respiratory Rate - - Oxygen Saturation 99% 02/03/2023 6:37 PM EDT Inhaled Oxygen Concentration - - Weight 76.2 kg (168 lb) 08/18/2024 3:37 PM EDT Height 157.5 cm (5' 2 ) 08/18/2024 3:37 PM EDT Body Mass Index 30.73 08/18/2024 3:37 PM EDT Plan of Treatment Health Maintenance Due Date Last Done Comments Pap Smear 2007 Cervical Cancer Screening 02/22/2016 HPV/Cotest 02/22/2016 Influenza Vaccine (#1) 2024 Insurance [facility] Care Teams Channeling Machine Operator Relationship Specialty Start Date End Date Jessica Dsouza MD [address] [place] [id number] PCP - General Family Medicine 08/18/24 Srinivasa Pop, [address] [place] [address] Referring Physician Otolaryngology 08/14/24
--- OUTSIDE RECORDS SUMMARY | 2024-12-19 11:34 | XMS_ITS | Encounter Summary ---
Author Organization [facility] Address [address] [place] [address] Phone Care Team Providers Care Banquet Houseperson Name Role Phone Unavailable Primary Care Provider Unavailabl e Encounter Details Date Type Department Care Team (Late st Contact Info) Description 07/02/2012 Scanned Document [facility] [address] [place] [id number] Scanning, Generic Provider Social History Tobacco Use Types Packs/Day Years Used Date Smoking Tobacco: Never Assessed Comments Unknown Sex and Gender Information Value Date Recorded Sex Assigned at Not on file Legal Sex Female 10:50 AM EST Gender Identity Not on file Sexual Orientation Not on file documented as of this encounter Plan of Treatment Not on file documented as of this encounter Visit Diagnoses Not on filedocumented in this encounter
--- OUTSIDE RECORDS SUMMARY | 2024-12-19 11:34 | XMS_ITS | Encounter Summary ---
Author Organization [facility] Address [address] [place] [id number] Care Team Providers Care Licensed Clinician Name Role Phone Jessica Dsouza MD Unavailable [phone] Source Comments In the event this information is protected by the Federal Confidentiality of Alcohol and Drug AbusePatient Records regulations: The Federal rules restrict any use of the information to criminally investigate or prosecute any alcohol or drug abuse patient.[facility] Encounter Details Date Type Department Care Team (Latest Contact Info) Description 12/08/2024 Travel Social History Tobacco Use Types Packs/Day Years [...] is lower risk 4 08/01/2024 Data from: https://www.neighborhoodatlas.medicine.[facility].edu/. Last address used for calculation [address] [place] [address] 08/01/2024 Comments No Sex and Gender Information Value Date Recorded Sex Assigned at Not on file Legal Sex Female 11:23 AM EDT Gender Identity Not on file Sexual Orientation Not on file documented as of this encounter Plan of Treatment Upcoming Encounters Date Type Department Care Team (Latest Contact Info) Description 01/02/2025 4:15 PM EDT OT/PT/Speech Visit Physical Therapy [address] [place] [address] Marizol Patel, PT [address] [place] [address] R42 (ICD-10-CM) - Dizzy 01/08/2025 9:00 AM EDT Office Visit Rheumatology [address] [place] [address] Kaia Prakash APRN.PHOTOENGRAVING FINISHER [address] [place] [address] [facility] documented as of this encounter Visit Diagnoses Not on filedocumented in this encounter Care Teams Licensed Clinician Relationship Specialty Start Date End Date Jessica Dsouza MD [address] [place] [address] Referring Family Medicine 07/04/24 documented as of this encounter
--- OUTSIDE RECORDS SUMMARY | 2024-12-19 11:43 | XMS_ITS | CCD ---
Author Organization [facility] Care Team Providers Care 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 Name Role Phone Argelia, Fina Vala Unavailable Unavailable Stout, Fina Vala Unavailable Unavailable PCP, Pt states no Unavailable Unavailable Stout, Fina Vala Unavailable Unavailable Stout, Fina Vala Unavailable Unavailable Stuot, Fina Vala Unavailable Unavailable Pako Connolly Unavailable Unavailab le Stout, Fina Vala Unavailable Unavailable CADEN LAY Admitting Unavailable CADEN LAY Attending Unavailable CADEN LAY Consulting Unavailable KATIA, DR SUAZO Admitting Unavailable GEORGE, DR RIZWANA Samayoa Consulting Unavailable MONTALVO, DR SUAZO Attending Unavailable MONTALVO, DR SUAZO Consulting Unavailable MONTALVO, DR JUAN Balbuena Attending Unavailable MONTALVO, DR JUAN Balbuena Consulting Unavailable MONTALVO, DR JUAN Balbuena Admitting Unavailable MONTALVO, DR JUAN Balbuena Admitting Unavailable MONTALVO, DR JUAN Balbuena Attending Unavailable LAZARAEBAYDEE, DR DINAH Mendieta Consulting Unavailable MONTALVO, DR JUAN Balbuena Consulting Unavailable MONTALVO, DR JUAN Balbuena Admitting Unavailable MONTALVO, DR JUAN Balbuena Attending Unavailable KATIA, DR JUAN Balbuena Consulting Unavailable JUAN MONTALVO Primary Care Physician [phone] Warrenesa J Referring Unavailable Wilmer Phoebe J Admitting Unavailable Wilmer Phoebe J Attending Unavailable Wilmer Phoebe J Attending Unavailable Wilmer, Phoebe J Admitting Unavailable Wilmer, Phoebe J Admitting Unavailable Wilmer Phoebe J Attending Unavailable Juan Montalvo Unavailable MD Juan Montalvo Primary Care Provider MD Juan Montalvo Attending Provider MD Afua Yu Attending Provider MD Juan Montalvo Primary Care Provider MD Iraj Dumont Referring Provider Juan Montalvo Primary Care Unavailable Afua Yu Admitting Unavailable Afua Yu Attending Unavailable Juan Montalvo Primary Care Unavailable Afua Yu Admitting Unavailable Gigi, Afua Attending Unavailable Iraj Dumont Referring Unavai lable Juan Montalvo Primary Care Unavailable Juan Montalvo Attending Unavailable Juan Montalvo Admitting Unavailable MD Juan Montalvo Primary Care Provider [phone] MD Afua Yu Attending Provider Juan Montalvo MD Primary Care Provider [phone] Juan Montalvo MD Unavailable [phone] Juan Montalvo MD Primary Care Provider [phone] Srinivasa Pop DO Unavailable Juan Montalvo MD Primary Care Provider TIMMIS, ABDIRASHID H Attending Unavailable TIMMIS, ABDIRASHID H Referring Unavailable TIMMIS, ABDIRASHID H Attending Unavailable JUAN MONTALVO Referring Unavailable TIMMIS, ABDIRASHID H Attending Unavailable CLAUDIA, AYLIN A Attending Unavailable TIMMIS, ABDIRASHID H Attending Unavailable CLAUDIA, AYLIN A Attending Unavailable TIMMIS, ABDIRASHID H Attending Unavailable TARTONY CLAY Referring Unavailable BAMBAKIDIS, ALLISON Attending Unavailable BAMBAKIDIS, ALLISON Referring Unavailable BAMBAKIDIS, PETER Attending Unavailable Juan Montalvo MD Primary Care Provider Delphine Leyva APRN Attending Provider ALONSOKIARABELLA, PETER Referring Unavailable BAMBAKIDIS, PETER Referring Unavailable BAMBAKIDIS, PETER Referring Unavailable BAMBAKIDIS, PETER Referring Unavailable TARTONY CLAY P Attending Unavailable BAMBAKIDIS, PETER Referring Unavailable BAMBAKIDIS, PETER Referring Unavailable Allergies Allergy Classification Reported Allergen(s) Allergy Type Date of Onset Reaction(s) Facility (4 sources) Adhesive Tape; Translations: [Tape] Drug allergy [facility] (20 sources) Cimetidine; Translations: [cimetidine] Drug Allergy 8 Anaphylaxis [facility] (20 sources) Latex; Translations: [Latex] Drug allergy 2 Itching, Other, Rash, Other: See Comments [facility] Comment on above: Skin irritation (20 sources) levoFLOXacin; Translations: [levofloxacin] Drug Allergy 9 Vomiting [facility] (17 sources) Adhesive agent; Translations: [adhesive] Drug allergy 4 Unknown, Unknown Reaction, Rash [facility] Comment on above: Boils (1 source) Tagamet *ULCER DRUGS/ANTISPASM Allergy to substance 4 Unknown Reaction [facility] (1 source) Cimetidine Drug Allergy 4 [facility] (1 source) levoFLOXacin Drug Allergy 4 [facility] (17 sources) Wound Dressing Adhesive Drug Allergy 3 Rash [facility] (11 sources) Adhesive Tape-Silicones; Translations: [ADHESIVE TAPE-SILICONES] Drug Allergy 5 Rash [facility] Medications Current Medications Medication Drug Class(es) Dates Sig (Normalized) Sig (Original) amoxicillin 875 mg / clavulanate 125 mg oral tablet (13 sources) Penicillin-class Antibacterial Start: 07-30-2024 amoxicillin-clavu lanate potassium (AUGMENTIN) 875-125 mg per tablet 07/30/2024 Active Start: 07-30-2024 End: 11-29-2024 take 1 tablet by mouth every twelve hours Amoxicillin-Pot Clavulanate 875-125 mg tablet Discontinued 1 TAB PO Every 12 hours 05 02July 30, 2024 12:00am November 29, 2024 2:21pm Start: 07-27-2022 take 1 tablet by cameron th every twelve hours Amoxicillin-Pot Clavulanate 875-125 MG 1 tablet Orally every 12 hrs for 10 day(s) Jul, Not-Taking ascorbic acid 60 mg / beta carotene 5000 unt / copper sulfate 40 mg / dl-alpha tocopheryl acetate 30 unt / sodium selenite 0.04 mg / zinc oxide 40 mg oral tablet (17 sources) Vitamin C Multiple Vitamin (Multivitamin Adult) tablet 1 (one) time each day at the same time Active clonazePAM 0.5 mg oral tablet (8 sources) Benzodiazepine Start: 09-19-19 End: 07-02-20 25 take 0.5 tablet by mouth once daily at bedtime clonazePAM (KLONOPIN) 0.5 mg tablet Indications: Globus sensation Take 0.5 tablets by mouth daily at bedtime for 30 days. 15 tablet 09/18/2024 Active doxycycline monohydrate 100 mg oral tablet (2 sources) Tetracycline-class Drug Start: 10-02-19 23 take 1 tablet by mouth every twelve hours Doxycycline Monohydrate 100 MG 1 tablet Orally Twice a day for 7 days Sep, Active fluticasone propionate 0.05 mg/actuat metered dose nasal spray (20 sources) Corticosteroid Start: 11-26-19 24 take 2 spray(s) nasal route once daily fluticasone (Flonase) 50 MCG/ACT nasal spray Administer 2 sprays into each nostril Daily 11/26/2023 Active Start: 11-26-2023 End: 06-08-2024 take 2 spray(s) nasal route once daily Fluticasone Propionate (Flonase Allergy Relief) 50 mcg/actuation spray,suspension Discontinued 2 SPRAY INTRANASAL Daily November 26, 2023 12:00am June 08, 2024 3:26pm administer 2 spray into each nostril ibuprofen 200 mg oral tablet (17 sources) Nonsteroidal Anti-inflammatory Drug ibuprofen 200 MG tablet Take by mouth Active meclizine hydrochloride 25 mg oral tablet (20 sources) Antiemetic Start: 024 End: 024 take 1 tablet by mouth three times daily as needed Meclizine 25 mg tablet Active 25 MG PO Three times daily as needed December 13, 2023 12:00am Complies with drug therapy medroxyPROGESTERone acetate 10 mg oral tablet (3 sources) Progestin Start: 019 Provera 10 mg Tab 10 mg = 1 tab(s), Oral, Daily, starting on day 14 of the cycle, # 28 tab(s), Refills(s) 8, Pharmacy: [facility]/pharmacy #[id number] Start Date: 11/07/18 Status: Ordered mv-mn/iron fum/FA/omega3,6,9#3 (WOMEN'S MULTI ORAL) (9 sources) mv-mn/iron fum/FA/omega3,6 ,9#3 (WOMEN'S MULTI ORAL) Take by mouth. Active valsartan 40 mg oral tablet (20 sources) Angiotensin 2 Receptor Princess Start: End: valsartan (DIOVAN) 40 mg tablet 05/20/2024 Active Completed/Discontinued Medications Medication Drug Class(es) Dates Sig (Normalized) Sig (Original) amLODIPine 5 mg oral tablet (3 sources) Dihydropyridine Calcium Channel Princess Start: 03-28-2024 End: 05-16-2024 take 1 tablet by mouth once daily Amlodipine 5 mg tablet Discontinued 5 MG PO Daily 90 90 March 28, 2024 1:00am May 16, 2024 11:13am amoxicillin 500 mg oral capsule (7 sources) Penicillin-class Antibacterial Start: 12-13-2023 End: 12-28-2023 take 1 capsule by mouth three times daily Amoxicillin 500 mg capsule Discontinued 500 MG PO Three times daily December 13, 2023 12:00am December 28, 2023 2:14pm DULoxetine 20 mg delayed release oral capsule (14 sources) Serotonin and Norepinephrine Reuptake Inhibitor Start: 06-18-2023 End: 08-12-2023 take 1 capsule by mouth twice daily Duloxetine 20 mg capsule,delayed release(DR/EC) Discontinued 20 MG PO Twice daily June 18, 2023 1:00am August 12, 2023 10:24am Levonorgest-Eth.E stradiol-Iron (16 sources) Progestin, Estrogen, Progestin-containing Intrauterine Device Start: 06-10-2023 End: 06-18-2023 take 1 tablet by mouth once daily Levonorgest-Eth.Es tradiol-Iron (Balcoltra) 0.1 mg-0.02 mg (21)/iron (7) tablet Discontinued 1 TAB PO Daily June 10, 2023 12:00am June 18, 2023 9:25am Start: 06-10-2023 End: 06-18-2023 take 1 tablet by mouth once daily Levonorgest-Eth.Estradiol-Iron (Balcoltr a) 0.1 mg-0.02 mg (21)/iron (7) tablet Discontinued 1 TAB PO Daily June 10, 2023 1:00am June 18, 2023 10:25am take 1 tablet by cameron once daily Balcoltra 0.1-20 MG-MCG(21) 1 tablet eac h cycle Orally Once a day Active methylPREDNISolone 4 mg oral tablet (20 sources) Corticosteroid Start: 11-26-2023 End: 12-13-2023 take 1 tablet by mouth once Methylprednisolone (Medrol (Joshua)) 4 mg tablets,dose pack Discontinued 0 PO per package directions November 26, 2023 12:00am December 13, 2023 10:09am PO PER PKG DIR for 6 days Start: 08-12-2023 End: 08-17-2023 take 1 tablet by mouth once Methylprednisolone (Medrol (Joshua)) 4 mg tablets,dose pack Discontinued 0 PO per package directions August 12, 2023 12:00am August 17, 2023 2:46pm PO PER PKG DIR for 6 days Start: 10-01-2022 methylPREDNISo lone 4 MG as directed Orally for 6 days Sep, Active Multivitamin (Daily Multi-Vitamin) tablet (14 sources) Start: 06-18-2023 End: 12-13-2023 take 1 tablet by mouth once daily Multivitamin (Daily Multi-Vitamin) tablet Discontinued 1 TAB PO Daily June 18, 2023 12:00am December 13, 2023 9:12am Start: 06-18-2023 End: 12-13-2023 take 1 tablet by mouth once daily Multivitamin (Daily Multi-Vitamin) tablet Discontinued 1 TAB PO Daily June 18, 2023 1:00am December 13, 2023 10:12am Start: 06-18-2023 take 1 tablet by cameron th once daily Multivitamin (Daily Multi-Vitamin) tablet Active 1 TAB PO Daily June 18, 2023 1:00am Problems Active Problems Problem Classification Problem Date Documented Date Episodic/Chronic Attention-deficit, conduct, and disruptive behavior disorders (20 sources) Adult attention deficit hyperactivity disorder ; Translations: [Attention-deficit hyperactivity disorder, unspecified type] Onset: 01-26-2024 06-21-2023 Chronic Attention-deficit, conduct, and disruptive behavior disorders (5 sources) Attention-deficit hyperactivity disorder, unspecified type; Translations: [Attention deficit disorder with hyperactivity] 06-18-2023 Chronic Blindness and vision defects (2 sources) Eye / vision finding; Translations: [Unspecified visual disturbance] 06-05-2024 Episodic Cardiac dysrhythmias (20 sources) Postural orthostatic tachycardia syndrome ; Translations: [Postural orthostatic tachycardia syndrome] 06-21-2023 Chronic Conditions associated with dizziness or vertigo (20 sources) Meniere's disease of right inner ear; Translations: [Meniere's disease, right ear] Onset: 02-14-2024 02-04-2024 Chronic Conditions associated with dizziness or vertigo (20 sources) Dizziness; Translations: [Dizziness and giddiness] Onset: 09-18-2024 08-01-2024 Episodic E Codes: Natural/environment (1 source) Bitten or stung by nonvenomous insect and other nonvenomous arthropods, initial encounter Episodic Headache; including migraine (6 sources) Headache; Translations: [Chronic nonintractable headache, unspecified headache type] 06-05-2024 Episodic Headache; including migraine (2 sources) Headache; including migraine; Translations: [Chronic daily headache] Onset: 08-01-2024 Immunizations and screening for infectious disease (1 source) Encounter for screening for human papillomavirus (HPV); Translations: [ENC SCREENING HUMAN PAPILLOMAVIRUS] Onset: 10-08-2020 Episodic Malaise and fatigue (20 sources) Other fatigue; Translations: [Fatigue] Onset: 05-18-2020 Episodic Miscellaneous mental health disorders (1 source) Globus sensation; Translations: [Globus sensation] Onset: 09-18-2024 Chronic Nervous system congenital anomalies (2 sources) Cerebellar disorder; Translations: [Other specified congenital malformations of brain] Onset: 08-01-2024 08-01-2024 Chronic Other acquired deformities (17 sources) Contracture of joint of right ankle; Translations: [Contracture, right ankle] Onset: 01-26-2024 01-26-2024 Chronic Other circulatory disease (17 sources) Elevated blood-pressure reading without diagnosis of hypertension; Translations: [Elevated blood-pressure reading, without diagnosis of hypertension] 06-10-2023 Episodic Other circulatory disease (8 sources) Elevated blood-pressure reading, without diagnosis of hypertension; Translations: [Elevated blood pressure reading without diagnosis of hypertension] 08-17-2023 Episodic Other circulatory disease (1 source) Postural orthostatic tachycardia syndrome ; Translations: [Postural orthostatic tachycardia syndrome [POTS]] Onset: 08-17-2023 Episodic Other congenital anomalies (19 sources) Addis-Danlos syndrome; 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, unspecified] 06-10-2023 Chronic Other congenital anomalies (8 sources) Addis-Danlos syndrome, unspecified; 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] 08-17-2023 Chronic Other ear and sense organ disorders (2 sources) Asymmetrical sensorineural hearing loss; Translations: [Sensorineural hearing loss, bilateral] 06-05-2024 Chronic Other ear and sense organ disorders (2 sources) Ear sensations - finding; Translations: [Other specified disorders of right ear] 02-11-2024 Episodic Other ear and sense organ disorders (2 sources) Tinnitus of right ear; Translations: [Tinnitus, right ear] 06-05-2024 Episodic Other endocrine disorders (12 sources) Polycystic ovarian syndrome; Translations: [Polycystic ovaries] Onset: 05-24-2020 08-17-2023 Chronic Other endocrine disorders (5 sources) Polycystic ovaries; Translations: [Polycystic ovarian syndrome] 11-07-2018 Chronic Other endocrine disorders (20 sources) Polycystic ovary syndrome; Translations: [Polycystic ovarian syndrome] Onset: 01-26-2024 06-10-2023 Chronic Other female genital disorders (12 sources) Other specified abnormal uterine and vaginal bleeding; Translations: [Other disorders of menstruation and other abnormal bleeding from female genital tract] Onset: 08-06-2020 Chronic Other female genital disorders (20 sources) Abnormal uterine bleeding; Translations: [Other specified abnormal uterine and vaginal bleeding] Onset: 01-26-2024 11-07-2018 Chronic Other nervous system disorders (2 sources) Chiari malformation type I; Translations: [Compression of brain] 07-04-2024 Chronic Other nervous system disorders (1 source) Numbness and tingling sensation of skin; Translations: [Anesthesia of skin] 09-18-2024 Episodic Other nervous system disorders (11 sources) Impairment of balance; Translations: [Other abnormalities of gait and mobility] Onset: 10-27-2024 10-27-2024 Episodic Other nervous system disorders (1 source) Anesthesia of skin; Translations: [Numbness and tingling] Onset: 09-18-2024 Episodic Other nervous system disorders (1 source) Paresthesia of skin; Translations: [Numbness and tingling] Onset: 09-18-2024 Episodic Other nervous system disorders (1 source) Other abnormalities of gait and mobility; Translations: [Balance problem] Onset: 10-27-2024 Episodic Other nutritional; endocrine; and metabolic disorders (6 sources) Obese class I; Translations: [Obesity, unspecified] 12-13-2023 Chronic Other nutritional; endocrine; and metabolic disorders (3 sources) Obesity, unspecified; Translations: [Obesity, unspecified] 12-13-2023 Chronic Other nutritional; endocrine; and metabolic disorders (20 sources) Abnormal weight gain; Translations: [Abnormal weight gain] Onset: 01-26-2024 06-10-2023 Episodic Other nutritional; endocrine; and metabolic disorders (3 sources) Abnormal weight gain; Translations: [Abnormal weight gain] 12-13-2023 Episodic Other screening for suspected conditions (not mental disorders or infectious disease) (4 sources) Encounter for screening for malignant neoplasm of cervix; Translations: [ENC SCREENING MALIG NEOPLASM CERV] Onset: 10-01-2020 Episodic Other upper respiratory disease (1 source) Feeling of lump in throat; Translations: [Globus sensation] 09-18-2024 Episodic Other upper respiratory infections (1 source) Acute maxillary sinusitis; Translations: [Acute maxillary sinusitis, unspecified] 07-30-2024 Episodic Otitis media and related conditions (20 sources) Other acute nonsuppurative otitis media, bilateral; Translations: [Acute nonsuppurative otitis media, unspecified] Onset: 01-26-2024 08-12-2023 Episodic Spondylosis; intervertebral disc disorders; other back problems (1 source) Spondylosis without myelopathy or radiculopathy, lumbar region; Translations: [SPONDYLS W/O MYELO-/RADICULOP LUMB] Onset: 02-15-2020 Chronic Spondylosis; intervertebral disc disorders; other back problems (20 sources) Low back pain; Translations: [Low back pain] Onset: 02-09-2020 Episodic Unclassified (1 source) Recurrent loss / N96(ICD-10) Onset: 10-25-2017 Unclassified (1 source) Encounter for fertility testing / Z31.41(ICD-10) Onset: 08-25-2017 Unclassified (1 source) related conditions, unspecified, first trimester / O26.91(ICD-10) Onset: 08-25-2017 Unclassified (1 source) Secondary oligomenorrhea / N91.4(ICD-10) Onset: 02-11-2017 Unclassified (2 sources) CONTACT W/AND (SUSP) EXPOS COVID-19; Translations: [CONTACT W/AND (SUSP) EXPOS COVID-19] Onset: 09-05-2020 Unclassified (1 source) Physical Therapy Onset: 11-08-2024 Viral infection (1 source) COVID-19; Translations: [COVID-19] Onset: 09-05-2020 Past or Other Problems Problem Classification Problem Date Documented Da te Episodic/Chronic Abdominal pain (14 sources) Right lower quadrant pain; Translations: [Right lower quadrant pain] Onset: 06-01-2018 06-10-2023 Episodic Other connective tissue disease (17 sources) Impingement syndrome of right shoulder region; Translations: [Impingement syndrome of right shoulder] Onset: 12-07-2022 12-07-2022 Episodic Unclassified (1 source) CONTACT W/AND (SUSP) EXPOS COVID-19; Translations: [CONTACT W/AND (SUSP) EXPOS COVID-19] Onset: 08-29-2020 Unclassified (9 sources) Onset: 10-17-2012 Resolved: 08-17-2017 11-07-2018 Results Test Name Value Interpretation Reference Range Facility CNTHERAPY 12-08-2024 CNTHERAPY OT/PT/Speech Visit ([facility]) -------- TANJA SOTO ([id number]) 1985 F Date Time Provider Department 12/08/24 10:[address] [facility] Date Time Provider Department Center 12/08/2024 10:30 AM [id number], KARA [facility] [place] [facility] Reason for Visit: Physical Therapy [503] Primary Visit Diagnosis:Dizziness [R42] Other Visit Diagnoses:Cervicalgia [M54.2] Headaches [R51.9] Allergies As of Date: 12/08/2024 Noted Allergy Reaction CIMETIDINE 04/19/1987 10 - Anaphylaxis ADHESIVE TAPE-SILICONES 08/01/2024 2 - Rash LEVOFLOXACIN 12/01/2008 11 - Vomiting LATEX 04/19/2011 9 - Itching 14 - Other: See Comments 2 - Rash Date Reviewed: 11/02/2024 Reviewed by: Allison Raza MD - Fully Assessed Prescriptions as of 12/12/2024 - clonazePAM (KLONOPIN) 0.5 mg tablet Take 0.5 tablets by mouth daily at bedtime for 30 days. - valsartan (DIOVAN) 40 mg tablet - amoxicillin-clavulanate potassium (AUGMENTIN) 875-125 mg per tablet - mv-mn/iron fum/FA/omega3,6,9#3 (WOMEN'S MULTI ORAL) Take by mouth. - meclizine (ANTIVERT) 25 mg tab Take 25 mg by mouth as needed. Normal [facility] CNTHERAPYon 12-01-2024 CNTHERAPY OT/PT/Speech Visit ([facility]) -------- TANJA SOTO ([id number]) 1985 F Date Time Provider Department 12/01/24 2:[address] [facility] Date Time Provider Department Center 12/01/2024 2:30 PM [id number], KARA [facility] Reason for Visit: PT Progress Note [1596] Primary Visit Diagnosis:Dizzy [R42] Other Visit Diagnoses:Cervicalgia [M54.2] Balance problem [R26.89] Allergies As of Date: 12/01/2024 Noted Allergy Reaction CIMETIDINE 04/19/1987 10 - Anaphylaxis ADHESIVE TAPE-SILICONES 08/01/2024 2 - Rash LEVOFLOXACIN 12/01/2008 11 - Vomiting LATEX 04/19/2011 9 - Itching 14 - Other: See Comments 2 - Rash Date Reviewed: 11/02/2024 Reviewed by: Allison Raza MD - Fully Assessed Prescriptions as of 12/02/2024 - clonazePAM (KLONOPIN) 0.5 mg tablet Take 0.5 tablets by mouth daily at bedtime for 30 days. - valsartan (DIOVAN) 40 mg tablet - amoxicillin-clavulanate potassium (AUGMENTIN) 875-125 mg per tablet - mv-mn/iron fum/FA/omega3,6,9#3 (WOMEN'S MULTI ORAL) Take by mouth. - meclizine (ANTIVERT) 25 mg tab Take 25 mg by mouth as needed. Normal [facility] CNTHERAPYon 11-24-2024 CNTHERAPY OT/PT/Speech Visit ([facility]) -------- TANJA SOTO ([id number]) 1985 F Date Time Provider Department 11/24/24 3:[address] [facility] Date Time Provider Department Center 11/24/2024 3:15 PM [id number], KARA [facility] [place] Reason for Visit: Physical Therapy [503] Primary Visit Diagnosis:Dizzy [R42] Other Visit Diagnoses:Cervicalgia [M54.2] Balance problem [R26.89] Allergies As of Date: 11/24/2024 Noted Allergy Reaction CIMETIDINE 04/19/1987 10 - Anaphylaxis ADHESIVE TAPE-SILICONES 08/01/2024 2 - Rash LEVOFLOXACIN 12/01/2008 11 - Vomiting LATEX 04/19/2011 9 - Itching 14 - Other: See Comments 2 - Rash Date Reviewed: 11/02/2024 Reviewed by: Allison Raza MD - Fully Assessed Prescriptions as of 11/24/2024 - clonazePAM (KLONOPIN) 0.5 mg tablet Take 0.5 tablets by mouth daily at bedtime for 30 days. - valsartan (DIOVAN) 40 mg tablet - amoxicillin-clavulanate potassium (AUGMENTIN) 875-125 mg per tablet - mv-mn/iron fum/FA/omega3,6,9#3 (WOMEN'S MULTI ORAL) Take by mouth. - meclizine (ANTIVERT) 25 mg tab Take 25 mg by mouth as needed. Dispatcher Refinery: Addendum Therapy (PT/OT/Speech/Resp) ID: [id number] 11/24/2024 4:25 PM Author: MARIZOL MAXWELL Signed by MARIZOL MAXWELL PT on 11/24/2024 at 4:25 PM * * * This document replaces document [id number] * * * Document text: Program_ID:[id number] Access Code: [email or web address] URL: [email or web address] Date: 11-24-2024 Prepared By: Marizol Maxwell Program Notes Exercises - Gaze Stabilization HORIZONTAL - 3 x daily - 7 x weekly - 1 sets - 1 reps - Seated Gaze Stabilization with Head Nod - 3 x daily - 7 x weekly - 1 sets - 1 reps - Sidelying Neck Sidebending Stretch - 1 x daily - 7 x weekly - 3 sets - 10 reps - Sidelying Cervical Sidebending - 1 x daily - 7 x weekly - 1 sets - 3-5 reps - Romberg Stance Eyes Closed on Foam Pad - 1 x daily - 7 x weekly - 3 sets - 10 reps Patient Education - What Is Vestibular Hypofunction? Normal [facility] THERAPY NTon 11-24-2024 THERAPY NT HNO ID: [id number] Author: MARIZOL MAXWELL, PT Service: Physical Therapy Author Type: Physical Therapist Type: Therapy (PT/OT/Speech/Resp) Filed: 11/24/2024 16:25 Note Text: Program_ID:[id number] Access Code: [email or web address] URL: [email or web address] Date: 11-24-2024 Prepared By: Marizol Maxwell Program Notes Exercises - Gaze Stabilization HORIZONTAL - 3 x daily - 7 x weekly - 1 sets - 1 reps - Seated Gaze Stabilization with Head Nod - 3 x daily - 7 x weekly - 1 sets - 1 reps - Sidelying Neck Sidebending Stretch - 1 x daily - 7 x weekly - 3 sets - 10 reps - Sidelying Cervical Sidebending - 1 x daily - 7 x weekly - 1 sets - 3-5 reps - Romberg Stance Eyes Closed on Foam Pad - 1 x daily - 7 x weekly - 3 sets - 10 reps Patient Education - What Is Vestibular Hypofunction? Normal [facility] CNTHERAPYon 11-16-2024 CNTHERAPY OT/PT/Speech Visit ([facility]) -------- TANJA SOTO ([id number]) 1985 F Date Time Provider Department 11/16/24 8:[address] [facility] Date Time Provider Department Center 11/16/2024 8:15 AM [id number], KARA [facility] Reason for Visit: Physical Therapy [503] Primary Visit Diagnosis:Dizzy [R42] Other Visit Diagnoses:Cervicalgia [M54.2] Balance problem [R26.89] Allergies As of Date: 11/16/2024 Noted Allergy Reaction CIMETIDINE 04/19/1987 10 - Anaphylaxis ADHESIVE TAPE-SILICONES 08/01/2024 2 - Rash LEVOFLOXACIN 12/01/2008 11 - Vomiting LATEX 04/19/2011 9 - Itching 14 - Other: See Comments 2 - Rash Date Reviewed: 11/02/2024 Reviewed by: Allison Raza MD - Fully Assessed Prescriptions as of 11/16/2024 - clonazePAM (KLONOPIN) 0.5 mg tablet Take 0.5 tablets by mouth daily at bedtime for 30 days. - valsartan (DIOVAN) 40 mg tablet - amoxicillin-clavulanate potassium (AUGMENTIN) 875-125 mg per tablet - mv-mn/iron fum/FA/omega3,6,9#3 (WOMEN'S MULTI ORAL) Take by mouth. - meclizine (ANTIVERT) 25 mg tab Take 25 mg by mouth as needed. Normal [facility] CNTHERAPYon 11-08-2024 CNTHERAPY OT/PT/Speech Visit ([facility]) -------- TANJA SOTO ([id number]) 1985 F Date Time Provider Department 11/08/24 2:[address] [facility] Date Time Provider Department Center 11/08/2024 2:30 PM [id number], KARA [facility] Reason for Visit: Physical Therapy [503] Primary Visit Diagnosis:Dizzy [R42] Other Visit Diagnoses:Cervicalgia [M54.2] Balance problem [R26.89] Allergies As of Date: 11/08/2024 Noted Allergy Reaction CIMETIDINE 04/19/1987 10 - Anaphylaxis ADHESIVE TAPE-SILICONES 08/01/2024 2 - Rash LEVOFLOXACIN 12/01/2008 11 - Vomiting LATEX 04/19/2011 9 - Itching 14 - Other: See Comments 2 - Rash Date Reviewed: 11/02/2024 Reviewed by: Allison Raza MD - Fully Assessed Prescriptions as of 11/08/2024 - clonazePAM (KLONOPIN) 0.5 mg tablet Take 0.5 tablets by mouth daily at bedtime for 30 days. - valsartan (DIOVAN) 40 mg tablet - amoxicillin-clavulanate potassium (AUGMENTIN) 875-125 mg per tablet - mv-mn/iron fum/FA/omega3,6,9#3 (WOMEN'S MULTI ORAL) Take by mouth. - meclizine (ANTIVERT) 25 mg tab Take 25 mg by mouth as needed. Normal [facility] CNOVon 11-02-2024 CNOV Office Visit ([facility] ) -------- TANJA SOTO ([id number]) 1985 F Date Time Provider Department 11/02/24 3:00 PM ALLISON RAZA NETAVON During your visit today, we recorded the following information about you: Pulse Blood pressure Weight Height 82/minute 118/81 79.7 kg 1.575 m Allison Raza MD 11/02/2024 6:29 PM Signed [facility] Name: Tanja Soto Age: [age] year old Gender: female Primary Care Provider: No primary care provider on file. History of Present Illness: She is seen in follow-up today for vertigo. She believes that the symptoms are essentially unchanged. She has only undergone one vestibular physical therapy sessions thus far. The results of her laboratory studies were unremarkable. She has not initiated treatment with the clonazepam. Neurologic Examination: She is awake, alert, pleasant, cooperative and coherent. Stance is normal and she walks well. There is no definite Rombergism. Cranial Nerves: II-visual calzada full III IV -extraocular movements normal VII-muscles of facial expression normal in power bilaterally Motor System: The tendon reflexes are symmetric. Other Observations: The Quix maneuver and Past-Pointing test are negative bilaterally. Labs: Lab Results Component Value Date WBC 5.47 09/18/2024 HCT 41.6 09/18/2024 MCV 89.8 09/18/2024 PLT 348 09/18/2024 No results found for: HBA1C No results found for: CHOL , HDL , LDL , TG Assessment/Plan: In summary, although clinically there appears not to have been any improvement, no findings on examination consistent with vestibular system dysfunction are evident today. This was discussed with her. I have encouraged her to persevere with regard to the vestibular physical therapy and a follow-up visit has been scheduled. I spent a total of 24 minutes on the date of the service which included [id number] patient care, completing clinical documentation, obtaining and/or reviewing separately obtained history, performing a medically appropriate examination, counseling and educating the patient/family/caregiver , and communicating results to the patient/family/caregiver Tanja Halley Soto This note was dictated using [employer] speech recognition software and may contain some errors that were a result of the program not accurately transcribing what was dictated, despite efforts to make corrections. Note that unless urgent, test and MRI results will be discussed at next follow-up visit. PROMIS? (Patient-Reported Outcomes Measurement Information System) is a set of person-centered measures that evaluates and monitors physical, social, and emotional health. It can be used with the general population and with individuals living with chronic conditions. PROMIS 10: PHYSICAL AND MENTAL HEALTH: Allergies As of Date: 11/02/2024 Noted Allergy Reaction CIMETIDINE 04/19/1987 10 - Anaphylaxis ADHESIVE TAPE-SILICONES 08/01/2024 2 - Rash LEVOFLOXACIN 12/01/2008 11 - Vomiting LATEX 04/19/2011 9 - Itching 14 - Other: See Comments 2 - Rash Date Reviewed: 11/02/2024 Reviewed by: Allison Raza MD - Fully Assessed Reason for Visit: Follow Up [171] Vertigo [3853] Primary Visit Diagnosis:Vertigo [R42] Prescriptions as of 11/02/2024 - clonazePAM (KLONOPIN) 0.5 mg tablet Take 0.5 tablets by mouth daily at bedtime for 30 days. - valsartan (DIOVAN) 40 mg tablet - amoxicillin-clavulanate potassium (AUGMENTIN) 875-125 mg per tablet - mv-mn/iron fum/FA/omega3,6,9#3 (WOMEN'S MULTI ORAL) Take by mouth. - meclizine (ANTIVERT) 25 mg tab Take 25 mg by mouth as needed. Problem List As Of Date 11/02/2024 Noted Resolved Dizzy [R42] 10/27/2024 Vertigo [R42] 10/27/2024 Cervicalgia [M54.2] 10/27/2024 Balance problem [R26.89] 10/27/2024 Disposition: Return in about 2 months (around 01/03/2025) for Vertigo. Follow-up and Disposition History for Encounter Date Provider Department Center 11/02/2024 [id number], PETER [facility] Encounter Status:Closed by ALLISON RAZA on 11/02/24 [facility] CNTHERAPYon 10-27-2024 CNTHERAPY OT/PT/Speech Visit ([facility]) -------- TANJA SOTO ([id number]) 1985 F Date Time Provider Department 10/27/24 9:[address] [facility] Date Time Provider Department Center 10/27/2024 9:00 AM [id number], KARA [facility] [place] Reason for Visit: PT Eval [747] Primary Visit Diagnosis:Cervicalgia [M54.2] Other Visit Diagnoses:Dizzy [R42] Vertigo [R42] Balance problem [R26.89] Allergies As of Date: 10/27/2024 Noted Allergy Reaction CIMETIDINE 04/19/1987 10 - Anaphylaxis ADHESIVE TAPE-SILICONES 08/01/2024 2 - Rash LEVOFLOXACIN 12/01/2008 11 - Vomiting LATEX 04/19/2011 9 - Itching 14 - Other: See Comments 2 - Rash Date Reviewed: 09/18/2024 Reviewed by: Allison Raza MD - Fully Assessed Prescriptions as of 10/27/2024 - clonazePAM (KLONOPIN) 0.5 mg tablet Take 0.5 tablets by mouth daily at bedtime for 30 days. - valsartan (DIOVAN) 40 mg tablet - amoxicillin-clavulanate potassium (AUGMENTIN) 875-125 mg per tablet - mv-mn/iron fum/FA/omega3,6,9#3 (WOMEN'S MULTI ORAL) Take by mouth. - meclizine (ANTIVERT) 25 mg tab Take 25 mg by mouth as needed. [employer]: Therapy (PT/OT/Speech/Resp) ID: [id number] 10/27/2024 9:54 AM Author: MARIZOL MAXWELL Signed by MARIZOL MAXWELL PT on 10/27/2024 at 9:54 AM Document text: Program_ID:[id number] Access Code: [email or web address] URL: [email or web address] Date: 10-27-2024 Prepared By: Marizol Maxwell Program Notes Exercises - Gaze Stabilization HORIZONTAL - 3 x daily - 7 x weekly - 1 sets - 1 reps - Seated Gaze Stabilization with Head Nod - 3 x daily - 7 x weekly - 1 sets - 1 reps Patient Education - What Is Vestibular Hypofunction? Normal [facility] THERAPY NTon 10-27-2024 THERAPY NT HNO ID: [id number] Author: MARIZOL MAXWELL, PT Service: Physical Therapy Author Type: Physical Therapist Type: Therapy (PT/OT/Speech/Resp) Filed: 10/27/2024 09:54 Note Text: Program_ID:[id number] Access Code: [email or web address] URL: [email or web address] Date: 10-27-2024 Prepared By: Marizol Maxwell Program Notes Exercises - Gaze Stabilization HORIZONTAL - 3 x daily - 7 x weekly - 1 sets - 1 reps - Seated Gaze Stabilization with Head Nod - 3 x daily - 7 x weekly - 1 sets - 1 reps Patient Education - What Is Vestibular Hypofunction? Normal [facility] ANTI NEUTRO CYTO ABOrdered B y: Afua Contreras on 09-19-2024 Interpretation (ANCA) Negative for C-ANC A and P-ANCA by indirect immunofluorescence. A negative result cannot reliably rule out ANCA-associated vaculitides especially when in remission. Clinical correlation is required. [facility] Neutrophil cytoplasmic Ab.classic IF Ql (S) Negative Negative [facility] Neutrophil cytoplasmic Ab.perinuclear IF Ql (S) Negative Negative [facility] Staff Review (ANCA) No review performed. [facility] This test is used as an aid in diagnosis of patients with autoimmune vasculitides. The final interpretation should be done in conjunction with ANCA test results and clinical correlation. [facility] Nuclear Ab IA Ql (S)on 09-19 VALDEMAR Scr Qual Negative Negative [facility] Comment on above: The qualitative anti nuclear antibody screen test performed using the following antigens: dsDNA, Chromatin, Ribosomal P, SS-A 60, SS-A 52, SS-B, Sm, SmRNP, CUSTOMS PORT DIRECTOR A, CUSTOMS PORT DIRECTOR 68, Scl-70, Hafsa-1, and Centromere B. Methodology: Multiplex flow immunoassay. Interpretation and review of laboratory results Normal [facility] TOM SerPl-cCncon 09-18-2024 Angiotensin converting enzyme [Catalytic activity/Vol] 24 U/L Normal <=52 [facility] Comment on above: Order Comment: Speci men Type: BLOOD SPECIMENOrdering Facility: [facility] Address: [address] [place] [address] Result Comment: Amy ficially low TOM levels may be found for patients taking TOM inhibitors or after the administration of gadolinium. This test was developed, and its performance characteristics determined by the [facility] Department of Pathology and Laboratory Medicine. It has not been cleared or approved by the FDA. The [facility] Department of Pathology and Laboratory Medicine is regulated under CLIA as qualified to perform high-complexity testing. This test is used for clinical purposes. It should not be regarded as investigational or for research. Performed By: #### 2 742-5 ####[facility] [id number] [place] [address] [place] TOM/ANGIOTENSIN BLDon 2024 Angiotensin converting enzyme [Catalytic activity/Vol] 24 U/L NINF - 52 U/L [facility] Comment on above: Artificially low TOM levels may be found for patients taking TOM inhibitors or after the administration of gadolinium. This test was developed, and its performance characteristics determined by the [facility] Department of Pathology and Laboratory Medicine. It has not been cleared or approved by the FDA. The [facility] Department of Pathology and Laboratory Medicine is regulated under CLIA as qualified to perform high-complexity testing. This test is used for clinical purposes. It should not be regarded as investigational or for research. ANTI NEUTRO CYTO ABon 2024 INTERPRETATION (ANCA) Negative for C-ANC A and P-ANCA by indirect immunofluorescence. A negative result cannot reliably rule out ANCA-associated vaculitides especially when in remission. Clinical correlation is required. [facility] Comment on above: Order Comment: Speci men Type: BLOOD SPECIMEN [facility] Address: [address] [place] [address] Performed By: #### A NCA #### [facility] CLIA [id number] [address] [place] [address] [place] Neutrophil cytoplasmic Ab.classic IF Ql (S) Negative Normal Negative [facility] Comment on above: Order Comment: Speci men Type: BLOOD SPECIMEN [facility] Address: [address] [place] [address] Performed By: #### A NCA #### [facility] CLIA [id number] [address] [place] [address] [place] Neutrophil cytoplasmic Ab.perinuclear IF Ql (S) Negative Normal Negative [facility] Comment on above: Order Comment: Speci obey Type: BLOOD SPECIMEN [facility] Address: [address] [place] [address] Performed By: #### A NCA #### [facility] CLIA [id number] [address] [place] [address] [place] STAFF REVIEW (ANCA) No review performed. [facility] Comment on above: Order Comment: Speci men Type: BLOOD SPECIMEN [facility] Address: [address] [place] [address] Performed By: #### A NCA #### [facility] CLIA [id number] [address] [place] [address] [place] Angiotensin converting enzym e [Catalytic activity/Vol]on 09-18-2024 Interpretation and review of laboratory results Normal [facility] C-REACTIVE PROTEINon 025 CRP [Mass/Vol] 1.1 mg/dL High [facility]/dL [facility] CBC W Auto Differential pane l (Bld)on 09-18-2024 Basophils (Bld) [#/Vol] 0.04 10*3/uL [facility] Basophils/100 WBC (Bld) 0.7 % [facility] Differential cell count method Nom (Bld) Auto [facility] Eosinophils (Bld) [#/Vol] 0.08 10*3/uL [facility] Eosinophils/100 WBC (Bld) 1.5 % [facility] Erythrocyte distribution width (RBC) [Ratio] 12 % 11.5 - 15.0 % [facility] Hematocrit (Bld) [Volume fraction] 41.6 % 36.0 - 46.0 % [facility] Hemoglobin (Bld) [Mass/Vol] 13.9 g/dL 11.5 - 15.5 g/dL [facility] Immature granulocytes (Bld) [#/Vol] [facility] Immature granulocytes/100 WBC (Bld) 0.4 % [facility] Lymphocytes (Bld) [#/Vol] 1.49 10*3/uL [facility] Lymphocytes/100 WBC (Bld) 27.2 % [facility] MCH (RBC) [Entitic mass] 30 pg 26.0 - 34.0 pg [facility] MCHC (RBC) [Mass/Vol] 33.4 g/dL 30.5 - 36.0 g/dL [facility] MCV (RBC) [Entitic vol] 89.8 fL 80.0 - 100.0 fL [facility] Monocytes (Bld) [#/Vol] 0.38 10*3/uL [facility] Monocytes/100 WBC (Bld) 6.9 % [facility] Neutrophils (Bld) [#/Vol] 3.46 10*3/uL [facility] Neutrophils/100 WBC (Bld) 63.3 % [facility] Nucleated RBC (Bld) [#/Vol] [facility] Nucleated RBC/100 WBC (Bld) [Ratio] 0 % /100 WBC [facility] Platelet mean volume (Bld) [Entitic vol] 10.5 fL 9.0 - 12.7 fL [facility] Platelets (Bld) [#/Vol] 348 10*3/uL [facility] RBC (Bld) [#/Vol] 4.63 10*6/uL 3.90 - 5.2 0 m/uL [facility] WBC (Bld) [#/Vol] 5.47 10*3/uL [facility] Basophils (Bld) [#/Vol] 0.04 10*3/uL Normal <0.11 [facility] Comment on above: Order Comment: Speci men Type: BLOOD SPECIMEN [facility] Address: [address] [place] [address] Performed By: #### 5 7021-8 #### [facility] CLIA [id number] [address] [place] [address] [place] Basophils/100 WBC (Bld) 0.7 % Normal [facility] Comment on above: Order Comment: Speci men Type: BLOOD SPECIMEN [facility] Address: [address] [place] [address] Performed By: #### 5 7021-8 #### [facility] CLIA [id number] [address] [place] [address] [place] Differential cell count method Nom (Bld) Auto Normal [facility] Comment on above: Order Comment: Speci men Type: BLOOD SPECIMEN [facility] Address: [address] [place] [address] Performed By: #### 5 7021-8 #### [facility] CLIA [id number] [address] [place] [address] [place] Eosinophils (Bld) [#/Vol] 0.08 10*3/uL Normal <0.46 [facility] Comment on above: Order Comment: Speci men Type: BLOOD SPECIMEN [facility] Address: [address] [place] [address] Performed By: #### 5 7021-8 #### [facility] CLIA [id number] [address] [place] [address] [place] Eosinophils/100 WBC (Bld) 1.5 % Normal [facility] Comment on above: Order Comment: Speci men Type: BLOOD SPECIMEN [facility] Address: [address] [place] [address] Performed By: #### 5 7021-8 #### [facility] CLIA [id number] [address] [place] [address] [place] Erythrocyte distribution width (RBC) [Ratio] 12.0 % Normal 11.5-15.0 [facility] Comment on above: Order Comment: Speci men Type: BLOOD SPECIMEN [facility] Address: [address] [place] [address] Performed By: #### 5 7021-8 #### [facility] CLIA [id number] [address] [place] [address] [place] Hematocrit (Bld) [Volume fraction] 41.6 % Normal 36.0-46.0 [facility] Comment on above: Order Comment: Speci men Type: BLOOD SPECIMEN [facility] Address: [address] [place] [address] Performed By: #### 5 7021-8 #### [facility] CLIA [id number] [address] [place] [address] [place] Hemoglobin (Bld) [Mass/Vol] 13.9 g/dL Normal 11.5-15.5 [facility] Comment on above: Order Comment: Speci men Type: BLOOD SPECIMEN [facility] Address: [address] [place] [address] Performed By: #### 5 7021-8 #### [facility] CLIA [id number] [address] [place] [address] [place] Immature granulocytes (Bld) [#/Vol] 10*3/uL Normal <0.10 [facility] Comment on above: Order Comment: Speci men Type: BLOOD SPECIMEN [facility] Address: [address] [place] [address] Performed By: #### 5 7021-8 #### [facility] CLIA [id number] [address] [place] [address] [place] Immature granulocytes/100 WBC (Bld) 0.4 % Normal [facility] Comment on above: Order Comment: Speci men Type: BLOOD SPECIMEN [facility] Address: [address] [place] [address] Performed By: #### 5 7021-8 #### [facility] CLIA [id number] [address] [place] [address] [place] Lymphocytes (Bld) [#/Vol] 1.49 10*3/uL Normal 1.00-4.00 [facility] Comment on above: Order Comment: Speci men Type: BLOOD SPECIMEN [facility] Address: [address] [place] [address] Performed By: #### 5 7021-8 #### [facility] CLIA [id number] [address] [place] [address] [place] [facility] [place] Lymphocytes/100 WBC (Bld) 27.2 % Normal [facility] Comment on above: Order Comment: Speci men Type: BLOOD SPECIMEN [facility] Address: [address] [place] [address] Performed By: #### 5 7021-8 #### [facility] CLIA [id number] [address] [place] [address] [place] MCH (RBC) [Entitic mass] 30.0 pg Normal 26.0-34.0 [facility] Comment on above: Order Comment: Speci men Type: BLOOD SPECIMEN [facility] Address: [address] [place] [address] Performed By: #### 5 7021-8 #### [facility] CLIA [id number] [address] [place] [address] [place] MCHC (RBC) [Mass/Vol] 33.4 g/dL Normal 30.5-36.0 [facility] Comment on above: Order Comment: Speci men Type: BLOOD SPECIMEN [facility] Address: [address] [place] [address] Performed By: #### 5 7021-8 #### [facility] CLIA [id number] [address] [place] [address] [place] MCV (RBC) [Entitic vol] 89.8 fL Normal 80.0-100.0 [facility] Comment on above: Order Comment: Speci men Type: BLOOD SPECIMEN [facility] Address: [address] [place] [address] Performed By: #### 5 7021-8 #### [facility] CLIA [id number] [address] [place] [address] [place] Monocytes (Bld) [#/Vol] 0.38 10*3/uL Normal <0.87 [facility] Comment on above: Order Comment: Speci men Type: BLOOD SPECIMEN [facility] Address: [address] [place] [address] Performed By: #### 5 7021-8 #### [facility] CLIA [id number] [address] [place] [address] [place] Monocytes/100 WBC (Bld) 6.9 % Normal [facility] Comment on above: Order Comment: Speci men Type: BLOOD SPECIMEN [facility] Address: [address] [place] [address] Performed By: #### 5 7021-8 #### [facility] CLIA [id number] [address] [place] [address] [place] Neutrophils (Bld) [#/Vol] 3.46 10*3/uL Normal 1.45-7.50 [facility] Comment on above: Order Comment: Speci men Type: BLOOD SPECIMEN [facility] Address: [address] [place] [address] Performed By: #### 5 7021-8 #### [facility] CLIA [id number] [address] [place] [address] [place] Neutrophils/100 WBC (Bld) 63.3 % Normal [facility] Comment on above: Order Comment: Speci men Type: BLOOD SPECIMEN [facility] Address: [address] [place] [address] Performed By: #### 5 7021-8 #### [facility] CLIA [id number] [address] [place] [address] [place] Nucleated RBC (Bld) [#/Vol] 10*3/uL Normal <0.01 [facility] Comment on above: Order Comment: Speci men Type: BLOOD SPECIMEN [facility] Address: [address] [place] [address] Performed By: #### 5 7021-8 #### [facility] CLIA [id number] [address] [place] [address] [place] Nucleated RBC/100 WBC (Bld) [Ratio] 0.0 /100 WBC Normal [facility] Comment on above: Order Comment: Speci men Type: BLOOD SPECIMEN [facility] Address: [address] [place] [address] Performed By: #### 5 7021-8 #### [facility] CLIA [id number] [address] [place] [address] [place] Platelet mean volume (Bld) [Entitic vol] 10.5 fL Normal 9.0-12.7 [facility] Comment on above: Order Comment: Speci men Type: BLOOD SPECIMEN [facility] Address: [address] [place] [address] Performed By: #### 5 7021-8 #### [facility] CLIA [id number] [address] [place] [address] [place] Platelets (Bld) [#/Vol] 348 10*3/uL Normal 150-400 [facility] Comment on above: Order Comment: Speci men Type: BLOOD SPECIMEN [facility] Address: [address] [place] [address] Performed By: #### 5 7021-8 #### [facility] CLIA [id number] [address] [place] [address] [place] [place] RBC (Bld) [#/Vol] 4.63 10*6/uL Normal 3.90-5.20 [facility] Comment on above: Order Comment: Speci men Type: BLOOD SPECIMEN Ordering Facility[facility] Address: [address] [place] [id number] Performed By: #### 5 7021-8 #### [facility] CLIA [id number] [place] [id number] [place] WBC (Bld) [#/Vol] 5.47 10*3/uL Normal 3.70-11.00 [facility] Comment on above: Order Comment: Speci men Type: BLOOD SPECIMEN Ordering Facility[facility] Address: [address] [place] [id number] Performed By: #### 5 7021-8 #### [facility] CLIA [id number] [address] [place] [id number] [facility] CNOVon 09-18-2024 CNOV Office Visit (NEADFV ) -------- TANJA SOTO Halley ([id number]) 1985 F Date Time Provider Department 09/18/24 10:00 AM ALLISON RAZA During your visit today, we recorded the following information about you: Pulse Blood pressure Weight Height 84/minute 136/87 78.8 kg 1.575 m Allison Raza MD 09/20/2024 4:12 PM Signed Ms. Tanja Soto is referred by Tony Wallace for an initial outpatient consultation primarily because of vertigo and imbalance. She is a 39-year-old right-handed white female with a past medical history significant for hypertension and juvenile Reactive Airways Disease. During November, she abruptly developed vertigo which resolved over about four days. In April of this year the dizziness returned probably much more gradually and was more fragmentary. More precisely qualitatively it was more of a shifting, rocking or swaying sensation and there is at least equivocal history of a sense of being pulled, pushed, drawn, veering or tilting to her left. This has been a persistent albeit fluctuating phenomenon but over the last month or so there may have been some improvement. With this she developed episodic tinnitus this binaural although more prominent on the right as well as a sense of fullness in the right ear. She was evaluated by otolaryngology and diagnosed with Meniere's Disease. Currently she is being treated with a low-salt diet. Interestingly she has been subject to motion sickness for the last eleven years or so. Magnetic resonance imaging of the brain was unremarkable although a mild Chiari type I malformation was noted for which she was evaluated by neurosurgery. She has also had two episodes of spasms involving the right eye by which she means forceful closure of the eye. The first of these lasted 15 minutes this on August 03, 2024 and the second and last on August 24 lasting about 2 hours. Other symptoms have included a sense that food is stuck in her throat as well as a foreign body sensation. Nocturnal numbness/tingling in various body areas have been noted for about the last 2 years. She has had chronic headaches for several years commonly associated with spots for a variable interval during the headache. The headache typically begins bi- posteriorly, has a bandlike squeezing quality with an occasional pulsatile quality. The headaches may occasionally be associated with nausea, vomiting and photophobia. Recumbency is beneficial and she has rarely been awakened by headache. There is an equivocal history of headache onset with coughing, sneezing, Valsalva maneuvers or rapid movements. She has been having these headaches daily for the last few years lasting from one to a few hours. Traditionally she has been taking acetaminophen for headaches and had been taking up to 50-60 of these weekly. She has never been treated prophylactically. She denies any history of unexplained fevers, night sweats, rashes, pain/swelling/erythema of any of her joints. Past Medical History: Her past medical history is as previously delineated. Family History: Her mother had headaches. Otherwise there is no history in her family of inherited problems with coordination, Multiple Sclerosis, muscular dystrophy, peripheral nerve disease, parkinsonism, dementia, recurrent troublesome headaches or seizure disorder. Psychosocial History: She has been 19 years and has one child who is healthy save for exercise-induced Reactive Airways Disease. She is a non-smoker/non-drinker. 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 Review of Systems: Her history of headache is as previously delineated. There is no history of syncope or seizure and she denies any weakness, wasting, unusual cramping or twitching of her muscles, numbness or tingling save for occasional muscle twinges in various body areas. There are no visual difficulties aside from wearing corrective lenses and she denies any aberration of her sense of hearing, taste or smell. Speech, swallowing, bladder and bowel function are unimpaired. There is no history of head injury sufficient to cause loss of consciousness, fracture of the spinal column, meningitis or encephalitis. Neurologic examination on September 18, 2024 revealed an awake, alert, pleasant, cooperative and coherent woman. Stance was normal and there was no rombergism. Gait including tandem walk was performed well as were the rapid alternating movements of the tongue fingers and toes as well as aekwnz-ha-tyvn testing. Cranial Nerves: II-visual calzada full III IV -extraocular movements normal VII-muscles of facial expression normal in power bilaterally XII-tongue midline Motor System: Strength in the deltoids, biceps, triceps, wrist extensors, finger extensors, interossei, iliopsoas, quadriceps, hamstrings, anterior tibialis and toe extens (more content not included)... Normal [facility] CRP SerPl-mCncon 09-18-2024 CRP [Mass/Vol] 1.1 mg/dL High <0.9 [facility] Comment on above: Order Comment: Speci men Type: BLOOD SPECIMENOrdering Facility: [facility] Address: [address] [place] [address] Performed By: #### 2 4323-8, 1987-08, 3015-06 ####[facility] [id number] [place] [address] [place] CRP [Mass/Vol]on 09-18-2024 Interpretation and review of laboratory results Abnormal [facility] Comprehensive metabolic 2000 panelon 09-18-2024 Albumin [Mass/Vol] 4.7 g/dL 3.9 - 4.9 g/dL [facility] ALP [Catalytic activity/Vol] 106 U/L 34 - 123 U/L [facility] ALT [Catalytic activity/Vol] 13 U/L 7 - 38 U/L [facility] Anion gap [Moles/Vol] 10 mmol/L 8 - 15 mmol/L [facility] AST [Catalytic activity/Vol] 14 U/L 13 - 35 U/L [facility] Bilirubin [Mass/Vol] 0.6 mg/dL 0.2 - 1 .3 mg/dL [facility] Calcium [Mass/Vol] 9.3 mg/dL 8.5 - 10. 2 mg/dL [facility] Chloride [Moles/Vol] 104 mmol/L 98 - 10 7 mmol/L [facility] CO2 [Moles/Vol] 25 mmol/L 22 - 30 mmol/L [facility] Creatinine [Mass/Vol] 0.73 mg/dL 0.58 - 0.96 mg/dL [facility] GFR/1.73 sq M.predicted among non-blacks MDRD (S/P/Bld) [Vol rate/Area] 108 mL/min/{1.73_m2} - PINF [facility] Comment on above: Estimated Glomerular Filtration Rate (eGFR) is calculated using the 2020 CKD-EPI creatinine equation. This equation utilizes serum creatinine, sex, and age as parameters. The creatinine assay has traceable calibration to isotope dilution-mass spectrometry. Refer to KDIGO guidelines for clinical interpretation. In patients with unstable renal function, e.g. those with acute kidney injury, the eGFR may not accurately reflect actual GFR. Glucose [Mass/Vol] 94 mg/dL 74 - 99 mg/dL [facility] Comment on above: The [place] Diabete s Association (ADA) provides guidance for cutoff values [...] Standards of Medical Care in Diabetes 2016, [place] Diabetes Association. Diabetes Care. 2016.39(Suppl 1). Interpretation and review of laboratory results Normal [facility] Potassium [Moles/Vol] 4 mmol/L 3.7 - 5.1 mmol/L [facility] Protein [Mass/Vol] 8 g/dL 6.3 - 8.0 g/dL [facility] Sodium [Moles/Vol] 139 mmol/L 136 - 144 mmol/L [facility] Urea nitrogen [Mass/Vol] 9 mg/dL 7 - 21 mg/dL [facility] Albumin [Mass/Vol] 4.7 g/dL Normal 3.9-4.9 [facility] Comment on above: Order Comment: Speci men Type: BLOOD SPECIMENOrdering Facility: [facility] Address: [address] [place] [address] Performed By: #### 2 4328, 1987-08, 3015-06 ####[facility] [id number] [place] [id number] [place] ALP [Catalytic activity/Vol] 106 U/L Normal 34-123 [facility] Comment on above: Order Comment: Speci men Type: BLOOD SPECIMENOrdering Facility: [facility] Address: [address] [place] [address] Performed By: #### 2 4328, 1987-08, 3015-06 ####[facility] [id number] [place] [id number] [place] ALT [Catalytic activity/Vol] 13 U/L Normal 7-38 [facility] Comment on above: Order Comment: Speci men Type: BLOOD SPECIMENOrdering Facility: [facility] Address: [address] [place] [address] Performed By: #### 2 4323-8, 1987-08, 3015-06 ####[facility] [id number] [place] [id number] [place] Anion gap [Moles/Vol] 10 mmol/L Normal 8-15 [facility] Comment on above: Order Comment: Speci men Type: BLOOD SPECIMENOrdering Facility: [facility] Address: [address] [place] [address] Performed By: #### 2 4323-8, 1987-08, 3015-06 ####[facility] [id number] [place] [address] [place] AST [Catalytic activity/Vol] 14 U/L Normal 13-35 [facility] Comment on above: Order Comment: Speci men Type: BLOOD SPECIMENOrdering Facility: [facility] Address: [address] [place] [address] Performed By: #### 2 8, 1987-08, 3015-06 ####[facility]ORYCLIA [id number] [place] [address] [place] Bilirubin [Mass/Vol] 0.6 mg/dL Normal 0.2-1.3 [facility] Comment on above: Order Comment: Speci men Type: BLOOD SPECIMENOrdering Facility: [facility] Address: [address] [place] [id number] Performed By: #### 2 8, 1987-08, 3015-06 ####[facility] [id number] [place] [address] [place] Calcium [Mass/Vol] 9.3 mg/dL Normal 8.5-10.2 [facility] Comment on above: Order Comment: Speci men Type: BLOOD SPECIMENOrdering Facility: [facility] Address: [address] [place] [address] Performed By: #### 2 4328, 1987-08, 3015-06 ####[facility] [id number] [place] [address] [place] Chloride [Moles/Vol] 104 mmol/L Normal 98-107 [facility] Comment on above: Order Comment: Speci men Type: BLOOD SPECIMENOrdering Facility: [facility] Address: [address] [place] [address] Performed By: #### 2 432-8, 1987-08, 3015-06 ####[facility]ORATORYCLIA [id number] [place] [address] [place] CO2 [Moles/Vol] 25 mmol/L Normal 22-30 [facility] Comment on above: Order Comment: Speci men Type: BLOOD SPECIMENOrdering Facility: [facility] Address: [address] [place] [address] Performed By: #### 2 4328, 1987-08, 3015-06 ####[facility] [id number] [place] [address] [place] Creatinine [Mass/Vol] 0.73 mg/dL Normal 0.58-0.96 [facility] Comment on above: Order Comment: Yadira barnhart Type: BLOOD SPECIMENOrdering Facility: [facility] Address: [address] [place] [address] Performed By: #### 2 4323-8, 1987-08, 3015-06 ####[facility] [id number] [place] [address] [place] Creatinine and Glomerular filtration rate.predicted panel (S/P/Bld) 108 mL/min/1.73m??? Normal >=60 [facility] Comment on above: Order Comment: Yadira [facility] Type: BLOOD SPECIMENOrdering Facility: [facility] Address: [address] [place] [address] Result Comment: Lilia mated Glomerular Filtration Rate (eGFR) is calculated using the 2020 CKD-EPI creatinine equation. This equation utilizes serum creatinine, sex, and age as parameters. The creatinine assay has traceable calibration to isotope dilution-mass spectrometry. Refer to KDIGO guidelines for clinical interpretation. In patients with unstable renal function, e.g. those with acute kidney injury, the eGFR may not accurately reflect actual GFR. Performed By: #### 2 4323-8, 1987-08, 3015-06 ####[facility] [id number] [place] [address] [place] Glucose [Mass/Vol] 94 mg/dL Normal 74-99 [facility] Comment on above: Order Comment: [facility]dira [facility] Type: BLOOD SPECIMENOrdering Facility: [facility] Address: [address] [place] [address] Result Comment: The [place] Diabetes Association (ADA) provides guidance for cutoff [...] Standards of Medical Care in Diabetes 2016, [place] Diabetes Association. Diabetes Care. 2016.39(Suppl 1). Performed By: #### 2 43206-24, 3015-06 ####[facility] [id number] [place] [address] [place] Potassium [Moles/Vol] 4.0 mmol/L Normal 3.7-5.1 [facility] Comment on above: Order Comment: Yadira barnhart Type: BLOOD SPECIMENOrdering Facility: [facility] Address: [address] [place] [address] Performed By: #### 2 4322-11, 3015-06 ####[facility] [id number] [place] [id number] [place] Protein [Mass/Vol] 8.0 g/dL Normal 6.3-8.0 [facility] Comment on above: Order Comment: Yadira barnhart Type: BLOOD SPECIMENOrdering Facility: [facility] Address: [address] [place] [address] Performed By: #### 2 4322-11, 3015-06 ####[facility] [id number] [place] [id number] [place] Sodium [Moles/Vol] 139 mmol/L Normal 136-144 [facility] Comment on above: Order Comment: Irenai obey Type: BLOOD SPECIMENOrdering Facility: [facility] Address: [address] [place] [address] Performed By: #### 2 4322-11, 3015-06 ####[facility]ORYCLIA [id number] [place] [address] [place] Urea nitrogen [Mass/Vol] 9 mg/dL Normal 7-21 [facility] Comment on above: Order Comment: Irenai men Type: BLOOD SPECIMENOrdering Facility: [facility] Address: [address] [place] [address] Performed By: #### 2 4323-8, 1987-5, 3016-3 ####[facility]ORATORYCLIA [id number] [address] [place] ESR Westergren method (Bld) [Velocity]on 09-18-2024 ESR (Bld) [Velocity] 20 mm/h [facility] Interpretation and review of laboratory results Normal [facility] ESR (Bld) [Velocity] 20 mm/h Normal 0-20 [facility] Comment on above: Order Comment: Speci men Type: BLOOD SPECIMEN [facility] Address: [address] [place] [address] Performed By: #### 4 537-7 #### [facility] CLIA [id number] [address] [place] [address] [facility] HISTORY PHYSICALon HISTORY PHYSICAL HNO ID: [id number] Author: ALLISON RAZA MD Service: ? Author Type: Physician Type: H&P Filed: 09/20/2024 16:12 Note Text: Ms. Tanja Soto is referred by Tony Wallace for an initial outpatient consultation primarily because of vertigo and imbalance. She is a 39-year-old right-handed white female with a past medical history significant for hypertension and juvenile Reactive Airways Disease. During November, she abruptly developed vertigo which resolved over about four days. In April of this year the dizziness returned probably much more gradually and was more fragmentary. More precisely qualitatively it was more of a shifting, rocking or swaying sensation and there is at least equivocal history of a sense of being pulled, pushed, drawn, veering or tilting to her left. This has been a persistent albeit fluctuating phenomenon but over the last month or so there may have been some improvement. With this she developed episodic tinnitus this binaural although more prominent on the right as well as a sense of fullness in the right ear. She was evaluated by otolaryngology and diagnosed with Meniere's Disease. Currently she is being treated with a low-salt diet. Interestingly she has been subject to motion sickness for the last eleven years or so. Magnetic resonance imaging of the brain was unremarkable although a mild Chiari type I malformation was noted for which she was evaluated by neurosurgery. She has also had two episodes of spasms involving the right eye by which she means forceful closure of the eye. The first of these lasted 15 minutes this on August 03, 2024 and the second and last on August 24 lasting about 2 hours. Other symptoms have included a sense that food is stuck in her throat as well as a foreign bodysensation. Nocturnal numbness/tingling in various body areas have been noted for about the last 2 years. She has had chronic headaches for several years commonly associated with spots for a variable interval during the headache. The headache typically begins bi- posteriorly, has a bandlike squeezing quality with an occasional pulsatile quality. The headaches may occasionally be associated with nausea, vomiting and photophobia. Recumbency is beneficial and she has rarely been awakened by headache. There is an equivocal history of headache onset with coughing, sneezing, Valsalva maneuvers or rapid movements. She has been having these headaches daily for the last few years lasting from one to a few hours. Traditionally she has been taking acetaminophen for headaches and had been taking up to 50-60 of these weekly. She has never been treated prophylactically. She denies any history of unexplained fevers, night sweats, rashes, pain/swelling/erythema of any of her joints. Past Medical History: Her past medical history is as previously delineated. Family History: Her mother had headaches. Otherwise there is no history in her family of inherited problems with coordination, Multiple Sclerosis, muscular dystrophy, peripheral nerve disease, parkinsonism, dementia, recurrent troublesome headaches or seizure disorder. Psychosocial History: She has been 19 years and has one child who is healthy save for exercise-induced Reactive Airways Disease. She is a non-smoker/non-drinker. 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 Review of Systems: Her history of headache is as previously delineated. There is no history of syncope or seizure and she denies any weakness, wasting, unusual cramping or twitching of her muscles, numbness or tingling save for occasional muscle twinges in various body areas. There are no visual difficulties aside from wearing corrective lenses and she denies any aberration of her sense of hearing, taste or smell. Speech, swallowing, bladder and bowel function are unimpaired. There is no history of head injury sufficient to cause loss of consciousness, fracture of the spinal column, meningitis or encephalitis. Neurologic examination on September 18, 2024 revealed an awake, alert, pleasant, cooperative and coherent woman. Stance was normal and there was no rombergism. Gait including tandem walk was performed well as were the rapid alternating movements of the tongue fingers and toes as well as efxwak-iy-rmbi testing. Cranial Nerves: II-visual calzada full III IV -extraocular movements normal VII-muscles of facial expression normal in power bilaterally XII-tongue midline Motor System: Strength in the deltoids, biceps, triceps, wrist extensors, finger extensors, interossei, iliopsoas, quadriceps, hamstrings, anterior tibialis and toe extensors was normal. There was no significant tendon reflex asymmetry and no Babinski response. Sensory System: Joint position and vibration sensation were intact. Other Observations: The Quix maneuver and Past-Pointing test were positive to her right. The H I T maneuver was (more content not included)... Normal [facility] No Panel Informationon 09-18 [facility] Nuclear Ab IA Ql (S)on 09-18 [facility] QUAL Negative Normal Negative [facility] Comment on above: Order Comment: Yadira barnhart Type: BLOOD SPECIMEN [facility] Address: [address] [place] [address] Result Comment: The qualitative antinuclear antibody screen test performed using the following antigens: dsDNA, Chromatin, Ribosomal P, SS-A 60, SS-A 52, SS-B, Sm, SmRNP, CUSTOMS PORT DIRECTOR A, CUSTOMS PORT DIRECTOR 68, Scl-70, Hafsa-1, and Centromere B. Methodology: Multiplex flow immunoassay. Performed By: #### 4 7383-5 #### [facility] CLIA [id number] [address] [place] [address] [place] RHEUMATOID FACTORon 09-19-19 25 Rheumatoid factor Qn NINF [facility] Rheumatoid fact SerPl-aCncon 09-18-2024 Rheumatoid factor Qn [IU]/mL Normal <16 [facility] Comment on above: Order Comment: Speci men Type: BLOOD SPECIMEN [facility] Address: [address] [place] [address] Performed By: #### 1 1572-5 #### [facility] CLIA [id number] [address] [place] [address] [place] Rheumatoid factor Qnon 09-18 Interpretation and review of laboratory results Normal [facility] THYROID STIMULATING HORMONEo n 09-18-2024 TSH Qn 1.28 m[IU]/L [facility] Comment on above: If the patient is pr egnant, TSH reference range varies by gestational period: First Trimester (weeks 9-12): 0.180-2.990 mIU/L Second Trimester: 0.110-3.980 mIU/L Third Trimester: 0.480-4.710 mIU/L Sameer Walton et al. A Practical Approach for the Verifications and Determination of Site- and Trimester-Specific Reference Intervals for Thyroid Function tests in . Thyroid, 2019:29:3:412-420. Frederic Balbuena et al. 2017 Guidelines of the [place] Thyroid Association for the Diagnosis and Management of Thyroid Disease during and the . Thyroid, 2017:27:3:315-389. TSH Qnon 09-18-2024 Interpretation and review of laboratory results Normal [facility] TSH SerPl-aCncon 09-18-2024 TSH Qn 1.280 m[IU]/L Normal 0.270-4.200 [facility] Comment on above: Order Comment: Speci men Type: BLOOD SPECIMEN [facility] Address: [address] [place] [address] Result Comment: If t he patient is , TSH reference range varies by gestational period: First Trimester (weeks 9-12): 0.180-2.990 mIU/L Second Trimester: 0.110-3.980 mIU/L Third Trimester: 0.480-4.710 mIU/L Sameer Walton et al. A Practical Approach for the Verifications and Determination of Site- and Trimester-Specific Reference Intervals for Thyroid Function tests in . Thyroid, 2019:29:3:412-420. Frederic Balbuena et al. 2017 Guidelines of the [place] Thyroid Association for the Diagnosis and Management of Thyroid Disease during and the . Thyroid, 2017:27:3:315-389. Performed By: #### 2 4323-8, 1988-5, 3016-3 #### [facility] [id number] [address] [place] [address] [place] Auditory function testson Bilateral normal hea ring [facility] CNOVon 08-01-2024 CNOV Office Visit (NEUSPM ) -------- TANJA SOTO ([id number]) 1985 F Date Time Provider Department 08/01/24 11:00 AM TONY WALLACE During your visit today, we recorded the following information about you: Temperature Pulse Respiration Blood pressure 97.8 degrees 83/minute 20/minute 119/86 Weight Height Last Period 78.1 kg 1.575 m 07/01/24 Tony Wallace PA-C 08/01/2024 11:33 AM Signed OUTPATIENT ADULT NEUROSURGICAL CONSULTATION Dear Dr Rosenbaum primary care provider on file.: Thank you for your kind referral of Tanja Soto for consultation. Tanja Soto was evaluated in the adult neurosurgery clinic on 08/01/2024 for the problem of chiari. Although her history is well known to you, please allow me to reiterate it for the purpose of my medical record. Informant: History obtained from patient. Chief Complaint: headaches, dizziness, other symptoms. History of Present Illness: Tanja Soto is a 39 year old female with a hx of R rotator cuff tear s/p repair, meniere's disease, PCOS, ADHD, HTN, and cervical ddd who presents today for a new patient evaluation of chiari. In 04/2023 she had neck pain and RUE pain so had a mri showing cervical DDD. Was recommended PT but this made it worse so then saw pain management whom recommended injections but she did not wish to pursue this. RUE pains have improved but still has ongoing neck pain and R shoulder stiffness. In 11/2023 she had presented with ear pain (R>L) so went to urgent care whom felt it may be the beginning of an ear infection. Then later in 11/2023 she had an episode of vertigo which prompted an ED visit which noted fluid in her ears and started her on abx. This did not help with the ear pain. Vertigo lasted about 3 days and then improved but did have ongoing ear pain. Was then referred ENT whom dx her with menier's disease. Started her on meclizine and did a hearing test. Since then she has had ongoing intermittent episode of dizziness. Gets random episodes of lightheadedness and imbalance. Can also occur with positional changes. Dizziness has not been bad enough to attempt the meclizine. She notes the dizziness seems to be daily, but when she notices the dizziness she will sit down or change position this will stop the dizziness. Then in 05/2024 she started to develop new symptoms. She denies any inciting events. Though she notes starting back in winter of 2021 she maybe has had symptoms. She notes she may have been due to mold exposure from work at that time. She also notes she has had high levels of stress since they adopted 2 children in 09/2021. When they cleared out the mold she did not have any clear improvement in symptoms. Did not have this worked up at that time. Headaches, difficulties with swallowing, ongoing ear pain, body temp regulation issues. Due to this ENT ordered brain mri reporting chiari. She has had headaches most of life but not as bad as now. She notes occipital headaches. Aching and throbbing pains. Can radiate toward the eyes and temples. Can be triggered by laying on the back of her head and keeping her hair tied in a tight pony tail. She is getting headaches daily. She notes headaches improve with sleep. She has taken tylenol without much help so she does not take much in the way of meds now. Has not been put on rx meds for headaches yet. Headaches last 1-4 hours. Headaches seem to be worse with bright lights and physical activity, standing for a long time. She notes issues with swallowing starting around Apr 2024. Difficulties with swallowing her vitamins. Feels like it is getting caught. Also having issues with swallowing dryer foods. No regular issues with liquids. Has not had a swallow study. Still having ongoing intermittent episodes of shooting pain in the R ear. Seems to be random. Also getting tinnitus in b/l ears. She notes feeling her hands and feet will feel constantly cold. Hard to keep them warm enough unless she takes a warm shower. Has had this issue in childhood but worse more recently. She notes FH of raynaud's disease. Has had rheum in the past and was dx with hypermobile EDS but has not had genetic testing. She denies headaches are exacerbated by valsalva but valsalva can trigger the lightheadedness. She acknowledges her vision has gotten worse over the past 1.5 years. Follows annualy with an eye doctor. Last summer noticed worsening R eye refraction. Needed stronger rx. She has her eyes dilated and no papilledema. She notes she will wake up with LUE numbness/burning frequently though does sleep more on the L side. Gets some b/l LE numbness as well when sleeping or working/standing/sitting for a a time. Some mild gait imbalance intermittently. She deny any UE or LE pain/paresthesias/weakne ss, bowel/bladder dysfunction, loss of pain/temperature sensation. PAST HISTORY: No past medical (more content not included)... Normal [facility] MR BRAIN W AND WO CONTRAST ( IACS)on 06-20-2024 MR BRAIN W AND WO CONTRAST (IACS) TITLE OF EXAM: MR BRAIN W AND WO CONTRAST (IACS) REASON FOR EXAM: History of Meniere's disease, persistent issues with right eye and right ear, no trauma TECHNIQUE: Multisequence, multiplanar MRI of the brain and IACs prior to and following the intravenous administration of 7.5 cc Vueway COMPARISON: None. FINDINGS: Cerebellopontine angles and temporal bones: No mass or abnormal enhancement in the cerebellopontine angles or internal auditory canals. The vestibules, cochlea, and semicircular canals demonstrate normal morphology, size, and signal. No significant fluid in the tympanic cavities. Normal evaluable trigeminal nerves. Left type II AICA loop. Brain and other intracranial structures: Borderline Chiari I malformation with crowding of structures at the foramen magnum. The obex is superior of the foramen. Otherwise, the ventricles and extra-axial spaces are normal. There are no intraparenchymal signal abnormalities. No hydrocephalus. There is no mass lesion, hemorrhage, or acute infarct. Skull/scalp: Normal. Orbits and face (included portions): Normal. Paranasal sinuses (included portions): Clear. IMPRESSION: 1. No mass or other abnormality of the IACs, cerebellopontine angles, or labyrinthine structures. 2. No acute intracranial abnormality. DICTATED ON: 06/20/2024 2:39 PM This report has been electronically signed in approved by the interpreting radiologist. Normal Not Available Comment on above: Order Comment: MRI B rain & IAC W/WO at [facility]. Please call patient to schedule. Auditory function testson Bilateral Normal hea ring [facility] Basophils Auto (Bld) [#/Vol] on 12-07-2023 Basophils (Bld) [#/Vol] 0.0 10 3/uL 0.0-0.1 [facility] Basophils/100 WBC Auto (Bld) on 12-07-2023 Basophils/100 WBC (Bld) 0.3 % 0.2-2.0 [facility] Eosinophils/100 WBC Auto (Bl d)on 12-07-2023 Eosinophils/100 WBC (Bld) 0.5 % Low 0.9-7.0 [facility] Erythrocyte distribution wid th Auto (RBC) [Ratio]on 12-07-2023 Erythrocyte distribution width (RBC) [Ratio] 12.5 % 11.0-15.0 [facility] Estimated glomerular filtrat ion rate (GFR) non- Americanon 12-07-2023 GFR/1.73 sq M.predicted among non-blacks MDRD (S/P/Bld) [Vol rate/Area] mL/min/{1.73_m2} >=60 [facility] Hematocrit Auto (Bld) [Volum e fraction]on 12-07-2023 Hematocrit (Bld) [Volume fraction] 40.3 % 36.0-48.0 [facility] Hemoglobin [Mass/volume] in Bloodon 12-07-2023 Hemoglobin (Bld) [Mass/Vol] 13.6 g/dL 12.0-16.0 [facility] Laboratory - Chemistry and C hemistry - challengeon 08-20-2024 Calcium [Mass/Vol] 9.2 mg/dL 8.5-10.1 [facility] Chloride [Moles/Vol] 100 mmol/L 98-107 [facility] CO2 [Moles/Vol] 27.1 mmol/L 21.0-32.0 [facility] Creatinine [Mass/Vol] 0.90 mg/dL 0.55-1.02 [facility] GFR/1.73 sq M.predicted MDRD (S/P/Bld) [Vol rate/Area] mL/min/{1.73_m2} >=60 [facility] Glucose [Mass/Vol] 110 mg/dL High 74-106 [facility] Potassium [Moles/Vol] 3.5 mmol/L 3.5-5.1 [facility] Sodium [Moles/Vol] 136 mmol/L 136-145 [facility] Urea nitrogen [Mass/Vol] 13.0 mg/dL 7.0-18.0 [facility] Urea nitrogen/Creatinine [Mass ratio] 14.4 mg/mg [facility] - Hematology and Cell countson 12-07-2023 Immature granulocytes/100 WBC (Bld) 0.3 % 0.0-0.5 [facility] Leukocytes [#/volume] correc elodia for nucleated erythrocytes in Blood by Automated counon 12-07-2023 WBC corrected for nucl RBC Auto (Bld) [#/Vol] 10.1 10 3/uL 4.0-11.0 [facility] Lymphocytes Auto (Bld) [#/Vo l]on 12-07-2023 Lymphocytes (Bld) [#/Vol] 2.4 10 3/uL 1.2-3.8 [facility] Lymphocytes/100 WBC Auto (Bl d)on 12-07-2023 Lymphocytes/100 WBC (Bld) 24.1 % 20.5-60.0 [facility] MCH Auto (RBC) [Entitic mass ]on 12-07-2023 MCH (RBC) [Entitic mass] 30.8 pg 26.7-34.0 [facility] MCHC Auto (RBC) [Mass/Vol]on 12-07-2023 MCHC (RBC) [Mass/Vol] 33.7 g/dL 29.9-35.2 [facility] MCV Auto (RBC) [Entitic vol] on 12-07-2023 MCV (RBC) [Entitic vol] 91.4 fL 81.0-99.0 [facility] Monocytes Auto (Bld) [#/Vol] on 12-07-2023 Monocytes (Bld) [#/Vol] 0.6 10 3/uL 0.3-0.8 [facility] Monocytes/100 WBC Auto (Bld) on 12-07-2023 Monocytes/100 WBC (Bld) 5.8 % 1.7-12.0 [facility] Neutrophils Auto (Bld) [#/Vo l]on 12-07-2023 Neutrophils (Bld) [#/Vol] 7.0 10 3/uL High 1.4-6.5 [facility] Neutrophils/100 WBC Auto (Bl d)on 12-07-2023 Neutrophils/100 WBC (Bld) 69.0 % 43.0-75.0 [facility] No Panel Informationon 12-06 Eosinophils # (Auto) 0.1 10 3/uL 0.0-0.7 [facility] Immature Granulocyte # (Auto) 0.03 10 3/uL 0.00-0.03 [facility] Platelet mean volume Auto (B ld) [Entitic vol]on 12-07-2023 Platelet mean volume (Bld) [Entitic vol] 11.1 fL 9.5-13.5 [facility] Platelets Auto (Bld) [#/Vol] on 12-07-2023 Platelets (Bld) [#/Vol] 272 10 3/uL 150-450 [facility] RBC Auto (Bld) [#/Vol]on RBC (Bld) [#/Vol] 4.41 10 6/uL 4.20-5.40 [facility] Serum or plasma anion gap de terminationon 12-07-2023 Anion gap [Moles/Vol] 12.4 mmol/L [facility] FPG ECG *OFFICE ONLY*on 07-20 FPG ECG *OFFICE ONLY* [facility] Main [place] [address] [place] [address] Electrocardiograph Report Signed Patient: Tanja Soto MR#: [id number] : 1985 Acct:[id number] Age/Sex: 38 / F ADM Date: 08/17/23 Loc: EKGCARDIO Room: Type: [facility] Attending Dr: Afua Yu MD Ordering Provider: Afua Yu MD Date of Service: 08/17/23 ECG/FPG ECG *OFFICE ONLY*: G90.A - Postural orthostatic tachycardia syndrome [POTS] Copies to: Test Reason : Blood Pressure : / mmHG Vent. Rate : 075 BPM Atrial Rate : 075 BPM P-R Int : 124 ms QRS Dur : 072 ms QT Int : 372 ms P-R-T Axes : 000 052 019 degrees QTc Int : 415 ms Normal sinus rhythm Normal ECG No previous ECGs available Confirmed by Iraj Dumont ([id number]) on 08/25/2023 8:52:34 AM Referred By: Electronically Signed By:Iraj Dumont Transcribed By: MUS Signed By Iraj Dumont MD 08/25/23 0852 Normal [facility] Automated basophil %Ordered By: Juan Montalvo on 07-05-2023 Basophils/100 WBC (Bld) 0.9 % Normal . [facility] Comment on above: Performed By: #### B MP, TSH3, CBC #### [facility] [address] [place] [address] Automated basophil countOrde red By: Juan Montalvo on 07-05-2023 Basophils (Bld) [#/Vol] 0.1 10*3/uL Normal 0.0-0.2 [facility] Comment on above: Result Comment: PERF ORMED BY: [place] [address] PATHOLOGIST [employer] SALES REPRESENTATIVE HALLE QUINTANA M.D. Performed By: #### B MP, TSH3, CBC #### [facility] [address] [place] [address] Automated blood monocyte cou ntOrdered By: Juan Montalvo on 07-05-2023 Monocytes (Bld) [#/Vol] 0.5 10*3/uL Normal 0.0-0.8 [facility] Comment on above: Performed By: #### B LAISHA TSH3, CBC #### [address] Automated eosinophil %Ordere d By: Juan Montalvo on 07-05-2023 Eosinophils/100 WBC (Bld) 1.5 % Normal . [facility] Comment on above: Performed By: #### B LAISHA, TSH3, CBC #### [address] Automated eosinophil countOr dered By: Juan Montalvo on 07-05-2023 Eosinophils (Bld) [#/Vol] 0.1 10*3/uL Normal 0.0-0.45 [facility] Comment on above: Performed By: #### B LAISHA TSH3, CBC #### [address] Automated monocyte %Ordered By: Juan Montalvo on 07-05-2023 Monocytes/100 WBC (Bld) 6.4 % Normal . [facility] Comment on above: Performed By: #### B LAISHA TSH3, CBC #### [address] Automated neutrophil %Ordere d By: Juan Montalvo on 07-05-2023 Neutrophils/100 WBC (Bld) 63.7 % Normal . [facility] Comment on above: Performed By: #### B LAISHA TSH3, CBC #### [address] Basic Metabolic Panelon 06-17 GFR/1.73 sq M.predicted MDRD (S/P/Bld) [Vol rate/Area] mL/min/{1.73_m2} Normal [facility] Comment on above: Performed By: #### B LAISHA, TSH3, CBC #### [address] Calcium [Mass/volume] in Ser um or PlasmaOrdered By: Juan Montalvo on 07-05-2023 Calcium [Mass/Vol] 8.9 mg/dL Normal 8.6-10.3 [facility] Comment on above: Performed By: #### B AYESHA INTERIANO3, CBC #### [address] Carbon dioxide, total [Moles /volume] in Serum or PlasmaOrdered By: Juan Montalvo on 07-05-2023 CO2 [Moles/Vol] 29.3 mmol/L Normal 21.0-31.0 [facility] Comment on above: Performed By: #### B LAISHA TSH3, CBC #### [address] Chloride [Moles/volume] in S nini or PlasmaOrdered By: Juan Montalvo on 07-05-2023 Chloride [Moles/Vol] 104 mmol/L Normal 98-107 [facility] Comment on above: Performed By: #### B AYESHA INTERIANO3, CBC #### [address] Complete Blood Count Auto Di ffon 07-05-2023 Mean Corpuscular HGB Conc 33.0 g/dL Normal 32.0-35.0 [facility] Comment on above: Performed By: #### B AYESHA INTERIANO3, CBC #### [address] NRBC% 0.1 /100{WBC} Normal 0-0.5 [facility] Comment on above: Performed By: #### B LAISHA TSH3, CBC #### [address] Creatinine [Mass/volume] in Serum or PlasmaOrdered By: Juan Montalvo on 07-05-2023 Creatinine [Mass/Vol] 0.72 mg/dL Normal 0.60-1.20 [facility] Comment on above: Performed By: #### B LAISHA TSH3, CBC #### [facility] [address] [place] [address] E[facility] echo transthoracicon ECH echo transthoracic [facility] [place] [address] Echocardiogram Signed Patient: Tanja Soto MR#: [id number] : 1985 Acct:[id number] Age/Sex: 38 / F ADM Date: 07/05/23 Loc: Room: Type: [facility] Attending Dr: Juan Montalvo MD Ordering Provider: Juan Montalvo MD Date of Service: 07/05/23 [facility] echo transthoracic: G90.A - Postural orthostatic tachycardia syndrome [POTS] Copies to: MD Juan Rueda MD BSA: 1.8 m2 BP: 169/109 mmHg HR: 90 Reason For Study: G90.A - Postural orthostatic tachycardia syndrome [POTS] History: Addis-Danlos Syndrome. Interpretation Summary Ejection Fraction = 55-60%. The left ventricular size and thickness are normal. A variety of Doppler measurements indicate normal left ventricular diastolic function. The left ventricular wall motion is normal. There is trace mitral regurgitation. There is trace tricuspid regurgitation. The aortic root is 2.7 cm. The aortic root is normal size. Normal caliber of ascending aorta 3.0cm. There is no comparison study available. Procedure/Quality: A two-dimensional transthoracic echocardiogram with color flow and Doppler was performed. Left Ventricle: The left ventricular size and thickness are normal. Ejection Fraction = 55-60%. A variety of Doppler measurements indicate normal left ventricular diastolic function. The left ventricular wall motion is normal. Left Atrium: The left atrium appears normal in size. Right Atrium: The right atrium appears normal in size. Right Ventricle: The right ventricle is normal in size and function. Aortic Valve: The aortic valve is trileaflet. The aortic valve is normal in structure. No hemodynamically significant valvular aortic stenosis. No aortic regurgitation is present. Mitral Valve: The mitral valve is normal in structure. No significant mitral valve stenosis. There is trace mitral regurgitation. Tricuspid Valve: The tricuspid valve is normal in structure. There is trace tricuspid regurgitation. Pulmonic Valve: The pulmonic valve is not well visualized. No significant pulmonic regurgitation. Arteries: The aortic root is normal size. The aortic root is 2.7 cm. Normal caliber of ascending aorta 3.0cm. The aortic arch was visualized and no abnormalities were seen. Pericardium/Pleura: No pericardial effusion seen. There is no pleural effusion. IVC/Hepatic Veins: The inferior vena cava is normal in size, with a normal collapsibility index. Measurements with Normals IVSd: 0.78 cm (0.7-1.1 cm)LVIDd: 4.7 cm (3.7-5.4 cm) LVPWd: 0.70 cm (0.7-1.1 cm)LVIDs: 3.3 cm (2.3-3.6 cm) LA dimension: 3.3 cm (2.3-4.0 cm)Ao root diam: 2.7 cm(2.0-3.6 cm) asc Aorta Diam: 3.0 cm(2.1-3.4cm) Doppler with Normals RVSP(TR): 26.8 mmHg (18-35mmHg) LV V1 max: 96.8 cm/sec (0.7-1.7m/s)MV E max carolyn: 92.4 cm/sec(0.8-1.3m/s) MV A max carolyn: 108.8 cm/sec(0.0-0.0m/s) MV E/A: 0.85 (<1.5) MMode/2D Measurements Calculations TAPSE: 1.7 cm FS: 30.0 % Ao root area: LVOT diam: 1.9 cm RV S Carolyn: EDV(Teich): 5.8 cm2 LVOT area: 2.9 cm2 13.4 cm/sec 104.0 ml ESV(Teich): 44.5 ml EF(Teich): 57.2 % __ LVLd ap4: 7.9 cm SV(MOD-sp4): LAV(MOD-sp4): LA A2 area: 14.4 cm2 EDV(MOD-sp4): 54.9 ml 27.5 ml 90.8 ml LAV(MOD-sp2): LA A4 area: 12.9 cm2 LVLs ap4: 6.4 cm 36.2 ml LA length (vol): ESV(MOD-sp4): 4.6 cm 35.9 ml LA vol: 34.0 ml EF(MOD-sp4): 60.5 % LA vol index: 18.9 ml/m2 Doppler Measurements Calculations MV dec time: MV max PG: E/E' lat: 6.0 MV dec slope: 0.14 sec 121.0 mmHg E/E' med: 10.5 664.6 cm/sec2 __ Ao V2 max: LV V1 max PG: MR max carolyn: TV max P.0 mmHg 155.3 cm/sec 3.7 mmHg 548.7 cm/sec Ao max P.7 mmHgLV V1 mean PG: MR max PG: Ao mean P.1 mmHg 120.5 mmHg 6.6 mmHg LV V1 mean: Ao V2 mean: 70.1 cm/sec 125.3 cm/sec LV V1 VTI: 19.8 cm Ao V2 VTI: 32.4 cm MARY GRACE(I,D): 1.8 cm2 MARY GRACE(V,D): 1.8 cm2 __ TR max carolyn: 243.7 cm/sec TR max P.8 mmHg RAP systole: 3.0 mmHg Measurements from QLAB CI (): ED Mass (): LAEF (): 72.0 % BSA (): 1.8 m2 110.0 grams 3.5 l/min/m2 __ BHAVANI (): LAVmax (): LAVmin (): 12.0 mlPat Height (): 24.0 ml/m2 43.0 ml 157.0 cm __ Pat Weight (): 79.4 kg QLAB Heart Model EDV ()_phl: 122.0 ml EF ()_phl: 57.0 % ED Current ()_phl: 60.0 % ESV ()_phl: 52.0 ml HR ()_phl: 89.0 BPMES Current ()_phl: 30.0 % LV Length ED ()_phl: 84.0 mmSV ()_phl: 70.0 ml ED Default ()_phl: 60.0 % LV Length ES ()_phl: 69.0 mm ES Default ()_phl: 30.0 % Transcribed By: SEYMOUR Performed At: 07/05/23 1536 Signed By: Iraj Dumont MD 07/05/23 1701 Normal [facility] Erythrocyte distribution wid th [Ratio] by Automated countOrdered By: Juan Montalvo on 07-05-2023 Erythrocyte distribution width (RBC) [Ratio] 12.7 % Normal 11.9-15.3 [facility] Comment on above: Performed By: #### B LAISHA, TSH3, CBC #### [facility] [address] [place] [address] [place] Erythrocytes [#/volume] in B lood by Automated countOrdered By: Juan Montalvo on 07-05-2023 RBC (Bld) [#/Vol] 4.35 10*6/uL Normal 3.60-5.00 [facility] Comment on above: Performed By: #### B LAISHA TSH3, CBC #### [facility] [address] [place] [address] [place] Glucose [Mass/volume] in Ser um or PlasmaOrdered By: Juan Montalvo on 07-05-2023 Glucose [Mass/Vol] 94 mg/dL Normal 70-100 [facility] Comment on above: ADA recommended refe rence rangeRandom Glucose Reference Range is dependent on time and content of last meal. Glucose of more than 200 mg/dL in a nonstressed, ambulatory subject supports the diagnosis of Diabetes Mellitus. Result Comment: [place] om Glucose Reference Range is dependent on time and content of last meal. Glucose of more than 200 mg/dL in a nonstressed, ambulatory subject supports the diagnosis of Diabetes Mellitus. ADA recommended reference range Performed By: #### B LAISHA, TSH3, CBC #### [facility] [address] [place] [id number] [place] Hematocrit [Volume Fraction] of Blood by Automated countOrdered By: Juan Montalvo on 07-05-2023 Hematocrit (Bld) [Volume fraction] 39.6 % Normal 34.0-46.4 [facility] Comment on above: Performed By: #### B MP, TSH3, CBC #### [address] Hemoglobin [Mass/volume] in BloodOrdered By: Juan Montalvo on 07-05-2023 Hemoglobin (Bld) [Mass/Vol] 13.1 g/dL Normal 11.8-15.4 [facility] Comment on above: Performed By: #### B MP, TSH3, CBC #### [address] Leukocytes [#/volume] correc elodia for nucleated erythrocytes in Blood by Automated counOrdered By: Juan Montalvo on 07-05-2023 WBC corrected for nucl RBC Auto (Bld) [#/Vol] 8.3 10*3/uL 3.8-11.6 [facility] Leukocytes [#/volume] in Blo od by Automated countOrdered By: Juan Montalvo on 07-05-2023 WBC (Bld) [#/Vol] 8.3 10*3/uL Normal 3.8-11.6 [facility] Comment on above: Performed By: #### B LAISHA, TSH3, CBC #### [place] [address] [place] Lymphocytes [#/volume] in Bl ood by Automated countOrdered By: Juan Montalvo on 07-05-2023 Lymphocytes (Bld) [#/Vol] 2.3 10*3/uL Normal 1.00-4.8 [facility] Comment on above: Performed By: #### B LAISHA, TSH3, CBC #### [place] [address] [place] Lymphocytes/100 leukocytes i n Blood by Automated countOrdered By: Juan Montalvo on 07-05-2023 Lymphocytes/100 WBC (Bld) 27.5 % Normal . [facility] Comment on above: Performed By: #### B MP, TSH3, CBC #### [place] [address] [place] MCH [Entitic mass] by Automa elodia countOrdered By: Juan Montalvo on 07-05-2023 MCH (RBC) [Entitic mass] 30.0 pg Normal 24.7-34.3 [facility] Comment on above: Performed By: #### B LAISHA, TSH3, CBC #### [facility] [address] [place] [address] MCHC Auto (RBC) [Mass/Vol]Or dered By: Juan Montalvo on 07-05-2023 MCHC (RBC) [Mass/Vol] 33.0 g/dL 32.0-35.0 [facility] MCV [Entitic volume] by Auto mated countOrdered By: Juan Montalvo on 07-05-2023 MCV (RBC) [Entitic vol] 91.0 fL Normal 80-100 [facility] Comment on above: Performed By: #### B LAISHA TSH3, CBC #### [address] Neutrophils [#/volume] in Bl ood by Automated countOrdered By: Juan Montalvo on 07-05-2023 Neutrophils (Bld) [#/Vol] 5.3 10*3/uL Normal 1.8-7.7 [facility] Comment on above: Performed By: #### B LAISHA, TSH3, CBC #### [facility] [address] [place] [address] No Panel InformationOrdered By: Juan Montalvo on 07-05-2023 Estimated GFR (CKD-EPI) > 60.0 mL/Min [facility] Creatinine Clearance (Chem N/A [facility] Nucleated erythrocytes [Pres ence] in Blood by Automated countOrdered By: Juan Montalvo on 07-05-2023 Nucleated RBC Auto Ql (Bld) 0.1 /100{WBC} 0-0.5 [facility] Platelet mean volume [Entiti c volume] in Blood by Automated countOrdered By: Juan Montalvo on 07-05-2023 Platelet mean volume (Bld) [Entitic vol] 9.3 fL Normal 6.3-10.7 [facility] Comment on above: Performed By: #### B MP, TSH3, CBC #### [facility] [address] [place] [address] Platelets [#/volume] in Bloo d by Automated countOrdered By: Juan Montalvo on 07-05-2023 Platelets (Bld) [#/Vol] 294 10*3/uL Normal 150-450 [facility] Comment on above: Performed By: #### B LAISHA TSH3, CBC #### [facility] [address] [place] [address] [place] Potassium [Moles/volume] in Serum or PlasmaOrdered By: Juan Montalvo on 07-05-2023 Potassium [Moles/Vol] 4.3 mmol/L Normal 3.5-5.1 [facility] Comment on above: Performed By: #### B LAISHA, TSH3, CBC #### [facility] [address] Serum or plasma anion gap de terminationOrdered By: Juan Montalvo on 07-05-2023 Anion gap [Moles/Vol] 9.0 mmol/L Normal 6.0-15.0 [facility] Comment on above: Performed By: #### B LAISHA TSH3, CBC #### [facility] [facility] [address] [place] [address] [place] Sodium [Moles/volume] in Ser um or PlasmaOrdered By: Juan Montalvo on 07-05-2023 Sodium [Moles/Vol] 138 mmol/L Normal 136-145 [facility] Comment on above: Performed By: #### B MP, TSH3, CBC #### [facility] [address] [place] [address] Thyrotropin [Units/volume] i n Serum or PlasmaOrdered By: Juan Montalvo on 07-05-2023 TSH Qn 1.34 m[IU]/L Normal 0.45-5.33 [facility] Comment on above: Result Comment: PERF ORMED BY: [place] [address] PATHOLOGIST [employer] SAL[employer] REPRESENTATIVE HALLE QUINTANA M.D. Performed By: #### B MP, TSH3, CBC #### [facility] [address] [place] [address] [place] Urea nitrogen [Mass/volume] in Serum or PlasmaOrdered By: Juan Montalvo on 07-05-2023 Urea nitrogen [Mass/Vol] 8 mg/dL Normal 7 [facility] Comment on above: Performed By: #### B MP, TSH3, CBC #### [facility] [address] Coding Summary.on 02-09-2022 Coding Summary. [id number] Gh0b Ww+PGhlYWQ+IA2EHCPzL24cy YCgwX6VH2bDPO7ZAHXTKWEDF P1PCC9ewOI1EPfoS5OdhxEr VyrsaSDhBX77XRf7CVK0wWdf ANubdE9cbBRcL9g9GlXoOQ21 qU55EYfjCCHoXzG0WkOeuupc bWFy F3pdSmOoxIOrFwt+PHRhYmxl IHdpZHRoPScxMDAlJyBzdHls DA3bKd7bPPUhCONjkLhhyMYq OiBj o0eaBKVfQRkvCE5okMzrW2Kh mNH3JCJut2w0Ib55hVF+PHRk NJP3aHegFMlzt830ElLwn5qk IDM3 iJXsKYgpQJU1J87cs3B0VLCx FBAyTFT0dBH9sW3oxYsgzshw P6RiwUBqLuN8MQM5hUJriB4d bGln gneorB0nWty+D16XKT0VUCYT VM6FRya8C6KmVnkugIS+PC90 PDGgXK16xEHcpMXkk5eyvXt9 JzEw JZQmTTG1uCjwZVqdl2PqVQTf K09bcCJqe4N0TMRloKiiaYSw PxQdiUE0dS2aMUbbdlbqf9rr dzsn Hjyvz7bsqy76qN49A89cQWkb SWPhAYK2VPFnMOGquTmdnp7q kY3hWn5+OAjgb5ste8ugbRx9 IjIw PHAkmfFtxLmlUDH1k3TuXn19 U9QzgSwnm5TnNex5gv17kHXs p6L6iCU3FGawRQGylI2tJOuc ZnQ6 QFCcGbPweM93uXPdEAfcMe7g sZqvzJhtTM1sRUAyrgtmYGXl rC3nLMZydQLdnGwlIU0pJUWw bjtm q798FfMbOHM2HYWkuMRmG9Qt mM2pVjCpZSLmSMFmC1QexNKr TDjlC020QFmmKuA9QIPzkpOj Y2Fs SRTqgBldGaE9t6O5Uz9Is0Dh genoYDR8ARnjNMBhOfC0SiLz AoB3W8RsXrm6WAEkmJzvIO5d J3Bh QEEjuivwydeazKR7HVCwBFAq oT93cEOhRPalHa7sf3P5l345 IZDqUAOwpA21Ib3klBxmYJKh dCBU hV3jdmoud3epyjfuPuUxRJZt YXs1VBn6QTMvjJfxIfDqTMN1 ScB1PVD2zXSkxU0pzNbwjyrm dG9w Oyc+G08arE4jBCK9DQB8nsts GJFmvyLbIW51NQ54U0RnKtha dGFibGU+QGKxwuZknOgkJM4g YmFj h1zuh3CuOLydY8ApZJZrQOck Xxw2ENBxIYX9kKG3vX3bVXWp RJpsx0B1yMV0J4IdxjQlxo9g b2xs NEMmODuzE40ppDGwv6E3ZJGv wAE9ASXkzYddEnUkyF46Bhq+ RMIcgIugj0PbBedih7lcp0zs dGg9 KxZgPWAspeKxfPfhYMX4s2Jt Xe11I25vPFrjAHTaDHUjKJRq DIFltImrbv7aqD1mKv3+PGNv bCB3 tIG6oH5tBQPjPwP9MXmaS534 KzBnkARqMfdur0rlq3eakNq5 EvQlYAQjmnUumOpxFFW0s4Uh Lz48 L21jJCqoLZMzLFZhYPLqFRUa pHhmwf1qyC3hYv6+EW6lp4ct qs25pU75sXF+SIIsLPL2aSbm PSdw XFXfiX8pETmxBuV8ZMDaYlUn aQ91kREkWShhUd0qvVbtcJmi HV2rGBBzylpms957PkYvt6pa IDEw nLYzKAuaKGM4V15xr2B0XVPw HLWcTUN2bLB2wP2tlOhnvmls bGVmdDsgdmVydGljYWwtYWxp Z246 IHRvcDsnPlBhdGllbnQgTmFt GAv8C3WxSyb0EDPafDbmCD3y eVSdJVxeGq6eeAavdSufLA0g NTBp oeafy124OmLpe9cvESOrmDRc JZglZAY0C47tz9H2IRPvYAXe HKN8eZE6dQ0gwNqgjswatJJc dDsg hlDiyQoeJBakYGnrR119OAZr bKibIgCencAcXGJsdTE6AR32 VX56vTBog3U2aLA3B7GeRAAd bmct oahjrBW0YIPqLBZhtR35Ao8y wNuzCc1lLKPeDDE7RSAymFSs W4DdoT8pPuAfKCOmUODpI8Mg eHQt ZPtmW401GIiqGmX7VDBfclQc M5AlKMZrlTsrVbM9b7K5Uo7T B2R4DF88ZI64tNYma0X4zNR9 J3Bh TCKclcsoxkxnfMG9QDXmCGUh sP07Ei8snGqaKt3nPITgUGU8 ZNGzaIZwB9WdkR3yXvVmLOHc MDAw P8SzpLHiQFqhE864HUqdQmE1 ZAWdifSfD4ZvBUJfuRejExC5 a5L4Qj4DMLg9XB95PE33hJEq c3R5 jTZ1R3QwACDsrpejwqitsUB6 SKWqKFJqhS23Tr2qgAbeXc1q NFQqAVF1IYEzoTGiE4NffF8q OiAj BFCjLIKtU5IieOKzJWdmB828 GVubIhR6NMHeiyVzG8PwZUEj vIgwDxF3k2Z0On7CQJOfIT59 IFR5 kOU5KH95BG72G0FvRpzjeYWp bGU+PHRhYmxlIHdpZHRoPScx GRBbGaVvkWpwGI6rNc6cPKSa LWNv jWmnjULlFvHbj6veQZHiIRna YF8vpVcgF2GkcPM9OYSdi6x1 Qq77U85lN4TvkDM+PGNvbCB3 aWR0 hW0hRjTjGhA3JAanG928TqVu nNOhYviwr2jhd9rodDo8NdP7 XLHvbyKsiFmyQFJ7m2VtXv52 Y29s IHdpZHRoPSIxNSUiIHZhbGln nf2xmY4qJr9+IMGwwFW2wCK3 aA0jZgBzUjG4BYijV520MoUl cCIv Cixqm5vfj6codMw3PjPbXAUb wyVobUtcGWI0a5LgTk10Z5Xd cGwir0EuOra9ax24qWNwb5D8 bGU9 B5JjZDIhertbrMEnyUptKQ7p PGEvfomrICDhbX6nEXFbT9q7 ApTlOyL1HEcoE3KqnwO7KJJn cHQg CHwxISW7S87sl3B1MCWvHMXz PLT8dQV9hE9yxIrifrelvTXc mAkwflPggMtsEEmcOCqeT344 IHRv mJsuXQOfrO0lJWNipUOmuVki XM1mGALjnmcfCiABKJZNGDQC RGCYVAHYHB94KX28gGZnj1K8 bGU9 Z0NbXBVwgkzeonejtQG7BBJr HTJfnL55kCDyGOaiGh0eo2J8 a874CLJmOTPggW31Tn3wiTgp MTBw aAXPmB1hexlrz6ierhwdJwCn UABkVIi7ASp6KTMdqPzpUzUb TPB1IjA6EYO6zCQpxJ0mdAxd bjog nD5vTnu+LFIvHVEeOIz3Cdga dGQ+XESsZHO2mFybZKcdSRSd bF0kGUWdS9x9KhKaWsS4AYax O3Bh XKFjzacdWr28gI0pYgRxYyE1 PKlrB7CwoiC2HGQuzEDyETwu TZK7M46db1F9BMBgSCBrVST9 dGV4 bZ1jzKxzrkzcmPJwoPxefjMe eVbbDKgiORqjA449UVVjvSwo TpQ6JVhcUKTvDZ46EL44xXRe c3R5 cLS6B0KlRJBtvfdqgkkdaLY5 MIBpAWKofE25rVRtMLwmTd6u x8L9g459ICEoWNGrhO88Vz3w dDog ECFzjBDXeH0ozqbln6vtxrkt RaSoCQJyOXg3DXh8YUCqcGxy BsHzIEO3KnW2WQF3hZLlnP3c bGln rntrzM7tLii+CnKlFEvhPI43 MX81aEIrv0L7kKQ0H1GiUKSu dubgjrrweUX7IHZfQITwaS23 cGFk YGpnZh9ld1R5e884SDPeNBSw oK37Sr5odRfuQKWifSSNeE2f cfxnr4vielmlVfBdYQGoFAi7 ZXh0 BSPynXxkYsFfMZH5VwI8RSX6 lBWguE6kvMzmmqcobN8dAbp+ Y4J0lYG0jKWgoVeagZX+PC90 cj48 H2VuCkzhUty4DFZbWAB5pVU0 tL7kOWQcIHkou9N8eFH2I3Bf wiTisg6xu9beSWXdPNtzK18h bGFw v9A2WFHrsZS8FAUntAxhIiZq cU88Ycr+HYYmcCkpr4CfZygm m4kvu0anlVz6VwEjDUHqxtRb aWdu FNV7r6KyRz84Y83pPKfpAOPq WSUfHQJcNGWcpJagna3nxL0z Ii8+RAIwxOV7wZZ6mE5cZvEl IiB2 LWinQ525RpSweMPhPaxjd0jm r7ijbPa4ZjZaOEZvpzYtoNsk SAK4u9QzJx20F7UznBokz5Hi Pjx0 pw42fGGob3K5zPK4O4QnWNSa folpnAZwvErgCO5yZKWstjnc SSNsnA1cNECfY9a9YvKmOcL3 MGlu J5PwmuW8XKZkcKCjBSYpjXCW nJ6eummjk9joedvkWxEmUDJe CSe9RAo4HDTsvSmtKbYdIFW6 OyB2 TZH9tCJcqH6djFfsbuhvzY1d Oyc+DZi2u7jawNZqJH4wtJB6 RF09YA31vGVmd4N6uNR2F0Li ZGRp eqxuspqszUM2WUIoLKEopH88 Uz7obFhgVk4jDAAwELU2WUBy yXYfN5LqoK9tVjDnHYSrPBCt O3Rl mWReOFmsR780CWdvLaH3INIq ieHbO7UeOHVjoNodEjM8m3J6 Ph7TWH83PL32JF07aFQuq9T6 bGU9 O5QbMVAiivwdbjymlAP2DQVu LRHkgE41Mf3quHhaHq4eDWWo SKZ2UQOxiWRrC2UezP8bDvKd MDAw YYNgN2XuiSXkENucB618VRfw QyT0JLCbkkCzT6BqNCZwzDeu IiN0b3O3To2DNn36FP76DL54 dGQg k4M5lHE3D1NkBFHchatpourt jNI8ZMKmLPCllH59Ba9saLli No3lCQWdWSC4QTRyqGMyO4Uo bG9y BpFfMDNyPQBxJ1PerDQhZHdy F753GBsxOuR5PIShzzUcQ0Cn LBXfnDvzQeZ9z3H7Pv5WOYbj cjo8 C8HsXtegyEZ+LV35OGZwZV38 zHJbeFPzk1fgiEj2HpKnFWFf WSG9eFvvHLbge2WwUJYvP71l bGFw c2U6 (more content not included)... Normal [facility] Coding Summary.on 02-03-2022 Coding Summary. CD:[id number] Gh0b Ww+PGhlYWQ+BA1OCBNuR05eh ZAcwR9MJ5aHDJ9RNNMOYSDFN G6RCJ6qmMF1ZXslU4BinmEg NdbdgXOcYE28QEm6KDO0cRkf CObchQ4hjYUkD6e7HiRyWK06 hU15VJmxZTRoYgP5JjOtiwgt bWFy T7jiHwMfhQCgJmt+PHRhYmxl IHdpZHRoPScxMDAlJyBzdHls UF8yYq1wYFUpTBKdiCwnwCTj OiBj t8ljXSKaBOsaIJ4owDcxJ4Pv kXF5JEVun9x6Sj61vAF+PHRk GXG5pMgoJMbao793SjNvo4wh IDM3 bTFzXBltCUT7V57ro6Y9TGGh NBMrHYI5zOM6yF9kzIjnyhsm W4VjfPYdIyH6IVH6kAYjwF2x bGln legvrW1jBzx+L70YWS8XCEVV QS9XQxv0B4UoGmdwrGP+PC90 YITjVV19lEEocBEdd6dqbBb9 JzEw SIKnWPJ0hAtsWFpps4BfPJSt C37nxWFxa7Y9DTRcdMkzpROa GlWayMR0gE7eKDmrhzbto1xe dzsn Qazcs9rjcu35eT47E37aJYhn SEQxJBR9UYSwCOUjzJghjw5z yK4eEc9+DBwxu7juc2hgrLk0 IjIw DWUvqwKtgBhpWJG1v5NnJv40 F2TrzCwvb1LcEma2bt36uXWy a2C3pCL2VKwnDFTmwX1bTOtd ZnQ6 DKWlBqVnqT33aWLqVQyvKa3m qTdbiKzxOK9bNLVfrphkDPAb lI9nENDuzNPiaVrkNQ0zFTZy bjtm u199ZdBpDYO8LGOxjJQjI8Nw bZ3qLyRnTCOnOBZjN3SpePDc YIoqU598QOihNuX5UMCbssKq Y2Fs LWVpyErhRdA4g2F3Ps5Cb9Nx pnkpYQG7BCzxAPWhMzU4VhOn ClI6L0ZmNzg0ZPNbzImuPI5h J3Bh SPMyhlgwancozVM8NMEkETHp aT34rGCkSQoaBu0wa6V9k732 TOSoOPOtyE92Oc2xpWbyVAEb dCBU zN3joafoi2msndibUxDmCJDm QXw4IMq7JVEyiDlpBeHbDRC4 UdE2VJV7lZOcuO5huNuvnxug dG9w Oyc+N12myT3yPVW3PUZ7tcbn YBXkyfEpLW38LN74Q8JxSkev dGFibGU+DCKpuhXmaVykAB6r YmFj x6gig2IbRTbaY5ToVPChNYje Egl3LMDbQEJ9xQE2iD6fBDQw BEvnw1D0jAQ2D2VepmLrtd0a b2xs XZOqYFkqC14oyWSvl6Y8BGOu dMQ3GDCafDxjEeTdnP01Mbk+ IEJpvKoml8AgUixuk0cax7xt dGg9 ZaXxXDXtdhZtiBytKDD3q8Ec Ms52D38oIYyeOKAlCOVjAPWc GXSqwLjbij0kvP3nBv7+PGNv bCB3 vJH8kO4nNWWfToV3PCkwY389 XpAzeWQeWgbkd4aya9lzeQa6 LbXxHFLpndAteKwnRXN9r1Gi Lz48 D09kTRiuEXNoCVImHPMcBZDq cTxtin9tnD0tMb2+DX6oh7rn is41tR91hCK+EIYlAOE5nLna PSdw SLOkzL5uYYniPnB2IHKrVpAb uK82xBLeHMqnQc2owAbvaTaf AT8jISKiysftu119VqEtw7ms IDEw cHTqCFueNIK5S39ab8K9UOAf STPnKKK9qGP1nN4tiHietoym bGVmdDsgdmVydGljYWwtYWxp Z246 IHRvcDsnPlBhdGllbnQgTmFt RRy9A4YaOdk6BVYfeSdqHK2q eXXgASfnIz1hqHjxmRvtAU9q NTBp etywy038KgFwc5zwIMIrkPSa EDgaNTX0R42jp4H1IRRcFDGn DOG2aRP4eO6dyWziarazwJJx dDsg zsKxoFlvLGpeXDvwZ947LBDr pCwfMkOgnqPtGDKxdYY3FE55 II92bLXmp0R2dEE8B5CwRARa bmct dtmdtBX0MAQiDSHayD04Te3e vXfbXd8vHCKfTSO9IVNigADd S0FkiE9oQpHkJSAlOELxU9Yy eHQt XOmjW854CIwiPrU3TDToevWl T7AxYMTjiQjpPiJ2w4W7Li1F V6N8KR18IQ68wBTcj6Q0oBK2 J3Bh LXGlnhoerskfpIG4WCEiTUTn qF41Oq4vcNxwWt2vZFIvHRB3 PMWvbJCaF3TnoB2xAfTiKEAu MDAw F9VjfBAsMCubZ125DPvaZsU2 COIqlfBnL0RoZVOdbYkyAnQ0 v9K8Yv8JGJx9HW27YI81zBLv c3R5 gRH2Q9ThCZJpoysqvjxneBX3 ZOFbJYEtnZ61Wv9fqUvyFq9e XAHsORS7RBLliNRlV8GmxT6r OiAj TJMwYRYtQ9KliEFdJYnyF998 SRdkKpW1VNGrrhKhH2TuXLEx bIpjWxO9f2Z6Il0PDNNkLG14 IFR5 gEY3ME36TS19K3VdDukqdGVy bGU+PHRhYmxlIHdpZHRoPScx NIKbVbJajUzeDW7uSv0oTHFl LWNv cQimdACuLwXjn7tpXZZpLFjp FR6heObyM8IgbEU4DOXbq5g1 Zj41F03gK8AftUK+PGNvbCB3 aWR0 nU7gWvSwVsO5HTzuY091TjAr fYYlTbbzl0zxn6oowYg0XcU4 TSCdruOhsGqeKIY6t8HdHn60 Y29s IHdpZHRoPSIxNSUiIHZhbGln xw3xhO1eEr3+TVKsbJI8lIV3 jI0rUqRbSeS7XHylA954QfKq cCIv Crpge9dpn7cxjHl0BeEcBFNe igLtaVsoVZC4f1GyQk41N8Af cAbpq9SuXan2tx19vBEjo0W8 bGU9 X0UsPOEiiilvdAFcdPkeJS0l UEJfcnljZODnvI5jIIAiL3t5 TgGzVyB4LGrxD2LaxkO5EFUd cHQg NDxvIMP4Q07lb4G6VVTjKEAi GFB1qRT4eP3gwQrvspocmERl xAcdoxBfaCtkYIekRZgcG846 IHRv fDxrJGPurU4kVBCekCIpvUlj YN7wNIRxcsrkAjHBHEBJHRHE APZGHQHWHP19YR84pNXho7T5 bGU9 I1GxJFEmpfufcbccgHE0CKSi PXOgiZ31kTHqXFjlRg8ed5K2 y689QXMaSHVlvL10Db8kgQxh MTBw sQXCeD4wargij8vdosguWkHm DCBhHJn1JHn8CVFadRwxFeXo XTM3NdG5ECQ7pTFsyR4asLid bjog xL4vSzj+SOAhLBEuMVb4Osco dGQ+ADMqXPX9sOweAAlgXCOt aR1kFGZiZ3m4GaQcUuC8IOyi O3Bh KYUtdfwvQl80iM6jBcRvCgZ2 VEbcT6EcrgF3FCBcnEHeGJdx SRE7V08ii7W9DVUiZGOdEOX7 dGV4 wV8zyAnlowhezSOgmOoeghYt dDahMNcqWFquU818EALjgLou PhP2ZNhgGFIcWQ88MI67yJMf c3R5 nTA3V5RcSGTpzwtjpvkkhMG4 QKMsGTWrsX05vADxNCuxOh8c j8P5y417NABnNJSrxW54Lw1n dDog ECNuvLZFdB9rlaivs0bpgxfx QtRePOMtYOo6RFd0WDXxdYxv MlYaGAY9GqP9EZR0nOTosZ3g bGln zojooZ8pPcz+LrDvFDkqJS00 EZ70wWXpp5M1eMZ2G1QmOQVq dqdlmrhmoTM9MEDnHZAkrE36 cGFk FDloPx5sf8C1a410AYUzSIMt xH78Wo8spDnkSRUadELOpD3v wntvs4phsvcyKkXbDCWbMVs4 ZXh0 ODZogUokRkHcTHU0SgH9XYE4 dSZxkS6nqDddvpdvjA5dKoi+ N3U4mJM4gQOryFlfwNC+PC90 cj48 Z3OhKcyrLtx2MJBaLRF1fQH3 xQ0jBWHjQRosx1B0iPH0E9Dw vhZpka3rn5cbHCBvUMtkY01p bGFw a4E7ZIJmmNH5USKfqXouHmDe vI97Qhf+IWRjxOwpn0OuUefx t1dmh1tgwLn2AyIfARLyqjAt aWdu EFG7v3XpYw49R11hIJzjARIt RFXkRZEeWRPwbPlvca6vhO7v Ii8+BPMuaHC8vSY3lQ0uSgAw IiB2 RPgrF147WcJbcVCoYurqm6pb w6sfdFo0OyClAEPmemHwxDyf WGP3o7XvNn64F7YnhBnay4Ms Pjx0 fp34cNNmi1M6jJT6D2JdQDBa uhvmiNEiyCofFA0wQGYhamhl XQBhnY8wUQBvK9c3KjJxKfO4 MGlu A3IteyS7JYDuvESdRQYegPHS rA3nsxwwt2fubtuiZdKbCIWz JVq0ZFu2YHFayHegIcBnLJI6 OyB2 MRW4dYCwyL3xbKtvhxkjoN2l Oyc+XYc3r1pfzVAlSM3opSY3 ZW25RR36eQUvh8Y4cON5Z0Jl ZGRp bbgtrbslkOW7TWVgLFSlqX15 Fl7xkNyxBf4fMOOiVZT6RNGs hUMgS3HoiS4wXlJwGTVxSZWs O3Rl xQSnIVnzH952KDzrEcU1GRRt xhLtU7DtHIYhoEmuOaM5f8L1 Bv0GKC64ZC09PU17tDMmw7Y9 bGU9 F8HrHZPzridlknzfdGQ6NBPq ZXZqsP29Sv4hiYllGs5qUHEo GRC5VXSqzWHbN9UeeU9yQcGz MDAw KKThL7YgzQXaYXtaD587LEvq WiX1FETluqZgD9GqTXKghRqd FbM7e4B1Fo5RYv12MO76TH61 dGQg b6U2sDR6M9QdPEUirhprqcji xFW6CCHhRIMbdU36Wy8gfAvj Wu7tILHxIYA3LMQpkNDxB5Kj bG9y OrRvONIbTVEiV8YpyNTbNXvp M141CBvvQyL1PKTmncUuX4Fi LGMiqLczVdW2j4K8Sa3OBOzu cjo8 O2PxEcqloEE+SE31BJCmXJ21 zTPyfQMme4sosOs6VcGaHIIp YJL9yQzzEMvqt5DqLSQqN21v bGFw c2U6 (more content not included)... Normal [facility] Consent for Treatmenton 01-17 Consent for Treatment [id number]: [address] [facility] US Pelvis Non-OB Completeon 02-03-2022 US Pelvis Non-OB Complete Exam Date/Time: 02/03/2022 14:42 EDT Reason for Exam: N93.8 R10.8 Report IMPRESSION: NEGATIVE ULTRASOUND OF THE PELVIS. EXAM: US Pelvis Non-OB Complete, Transvaginal Non-OB DATE: 02/03/2022 CLINICAL HISTORY: N93.8 R10.8. COMPARISON: 05/25/2012 TECHNIQUE: Transabdominal ultrasound was performed to visualize the entirety of the pelvis. Transvaginal scanning was performed to provide better detail of the uterus and ovaries. FINDINGS: The uterus and both ovaries appear within normal limits for the patient's age group, with a few small nabothian cysts within the cervix and small simple follicles within both ovaries. Equivalent blood flow is noted to both ovaries on Doppler analysis. There is no significant free fluid, abnormal adnexal masses, or other findings of concern identified. The uterus is retroverted and retroflexed in position, with measurements and estimated volume: Uterus Length: 6.5 cm Uterus Width: 4.4 cm Uterus Height: 3.5 cm Uterus Volume: 51.5 cm3 Endometrium Thickness: 1.1 cm The right ovary measurements and estimated volume: Right Ovary Length: 3.1 cm Right Ovary Width: 2.3 cm Right Ovary Height: 2.4 cm Right Ovary Volume: 8.7 cm3 Report The left ovary measurements and an estimated volume are: Left Ovary Length: 2.1 cm Left Ovary Width: 3.5 cm Left Ovary Height: 2.0 cm Left Ovary Volume: 7.6 cm3 FINAL REPORT Dictated: 02/03/2022 4:13 pm Billy Fish MD Signed (Electronic Signature): 02/03/2022 4:13 pm Signed by: Billy Fish MD Transcribed by: DAVID Technologist: CHILANGO Technical Comments Transabdominal Ultrasound Performed Transvaginal Ultrasound Performed Normal [facility] US Transvaginal Non-OBon US Transvaginal Non-OB Exam Date/Time: 02/03/2022 14:35 EDT Reason for Exam: N93.8 R10.8 Report PLEASE SEE US Pelvis Non-OB Complete REPORT DATED: 02/03/2022. FINAL REPORT Dictated: 02/03/2022 4:14 pm Billy Fish MD Signed (Electronic Signature): 02/03/2022 4:14 pm Signed by: Billy Fish MD Transcribed by: DAVID Technologist: CHILANGO Normal [facility] Auto Diffon 01-30-2022 Basophils/100 WBC (Bld) 0.9 % Normal 0.0-2.0 [facility] Comment on above: Order Comment: Order Added by Discern Expert. Performed By: #### 2 [id number], [id number] #### [facility] [address] [place] [address] 16216 Basophils/Leukocytes Auto (Bld) [Pure # fraction] 0.1 E9/L Normal 0.0-0.2 [facility] Comment on above: Order Comment: Order Added by Discern Expert. Performed By: #### 2 [id number], [id number] #### [facility] [address] [place] [address] 50757 Eosinophils/100 WBC (Bld) 1.5 % Normal 0.0-8.0 [facility] Comment on above: Order Comment: Order Added by Discern Expert. Performed By: #### 2 [id number], [id number] #### [facility] [address] [place] [address] 37894 Eosinophils/Leukocytes Auto (Bld) [Pure # fraction] 0.1 E9/L Normal 0.0-0.5 [facility] Comment on above: Order Comment: Order Added by Discern Expert. Performed By: #### 2 [id number], [id number] #### [facility] [address] [place] [address] 81983 Lymphocytes/100 WBC (Bld) 29.0 % Normal 14.0-50.0 [facility] Comment on above: Order Comment: Order Added by Discern Expert. Performed By: #### 2 [id number], [id number] #### [facility] [address] [place] [address] 85408 Lymphocytes/Leukocytes Auto (Bld) [Pure # fraction] 2.1 E9/L Normal 1.0-4.0 [facility] Comment on above: Order Comment: Order Added by Discern Expert. Performed By: #### 2 [id number], [id number] #### [facility] [address] [place] [address] 71736 Monocytes/100 WBC (Bld) 6.6 % Normal 4.0-14.0 [facility] Comment on above: Order Comment: Order Added by Discern Expert. Performed By: #### 2 [id number], [id number] #### [facility] [address] [place] [address] 19046 Monocytes/Leukocytes Auto (Bld) [Pure # fraction] 0.5 E9/L Normal 0.2-1.0 [facility] Comment on above: Order Comment: Order Added by Discern Expert. Performed By: #### 2 [id number], [id number] #### [facility] [address] [place] [address] 68052 Neutrophils/100 WBC (Bld) 62.0 % Normal 36.0-75.0 [facility] Comment on above: Order Comment: Order Added by Discern Expert. Performed By: #### 2 [id number], [id number] #### [facility] [address] [place] [address] Neutrophils/Leukocytes Auto (Bld) [Pure # fraction] 4.4 E9/L Normal 2.0-7.5 [facility] Comment on above: Order Comment: Order Added by Discern Expert. Performed By: #### 2 [id number], [id number] #### [facility] [address] [place] [address] 21874 CBC w/ Auto Diffon Erythrocyte distribution width (RBC) [Ratio] 13.3 % Normal 10.9-14.2 [facility] Comment on above: Performed By: #### 2 [id number], [id number] #### [facility] [address] [place] [address] 39065 Hematocrit (Bld) [Volume fraction] 36.7 % Normal 34.0-46.0 [facility] Comment on above: Performed By: #### 2 [id number], [id number] #### [facility] [address] [place] [address] 30759 Hemoglobin (Bld) [Mass/Vol] 12.3 g/dL Normal 12.0-16.0 [facility] Comment on above: Performed By: #### 2 [id number], [id number] #### [facility] [address] [place] [address] 20778 MCH (RBC) [Entitic mass] 30.1 pg Normal 27.0-34.0 [facility] Comment on above: Performed By: #### 2 [id number], [id number] #### [facility] [address] [place] [address] 68814 MCHC (RBC) [Mass/Vol] 33.7 g/dL Normal 31.4-36.0 [facility] Comment on above: Performed By: #### 2 [id number], [id number] #### [facility] [address] [place] [address] MCV (RBC) [Entitic vol] 89.3 fL Normal 80.0-100.0 [facility] Comment on above: Performed By: #### 2 463706, [id number] #### [facility] [address] [place] [address] 39905 Platelet mean volume (Bld) [Entitic vol] 9.4 fL Normal 6.4-10.8 [facility] Comment on above: Performed By: #### 2 006373, [id number] #### [facility] [address] [place] [address] 97870 Platelets (Bld) [#/Vol] 263.0 E9/L Normal 150.0-500.0 [facility] Comment on above: Performed By: #### 2 107456, [id number] #### [facility] [address] [place] [address] 64898 RBC (Bld) [#/Vol] 4.1 E12/L Low 4.3-5.9 [facility] Comment on above: Performed By: #### 2 088333, [id number] #### [facility] [address] [place] [address] 74135 WBC corrected for nucl RBC Auto (Bld) [#/Vol] 7.1 E9/L Normal 4.0-11.0 [facility] Comment on above: Performed By: #### 2 124125, [id number] #### [facility] [address] [place] [address] 94094 Consent for Treatmenton 01-17 Consent for Treatment [id number]#[id number]: [address] [facility] HEMATOLOGYOrdered By: SYSTEM SYSTEM on 01-30-2022 Basophils/100 WBC (Bld) 0.9 % Normal 0.0 - 2.0 % [facility] Basophils/Leukocytes Auto (Bld) [Pure # fraction] 0.1 E9/L Normal 0.0 - 0.2 E9/L [facility] Eosinophils/100 WBC (Bld) 1.5 % Normal 0.0 - 8.0 % [facility] Eosinophils/Leukocytes Auto (Bld) [Pure # fraction] 0.1 E9/L Normal 0.0 - 0.5 E9/L [facility] Lymphocytes/100 WBC (Bld) 29.0 % Normal 14.0 - 50.0 % [facility] Lymphocytes/Leukocytes Auto (Bld) [Pure # fraction] 2.1 E9/L Normal 1.0 - 4.0 E9/L [facility] Monocytes/100 WBC (Bld) 6.6 % Normal 4.0 - 14.0 % [facility] Monocytes/Leukocytes Auto (Bld) [Pure # fraction] 0.5 E9/L Normal 0.2 - 1.0 E9/L [facility] Neutrophils/100 WBC (Bld) 62.0 % Normal 36.0 - 75.0 % [facility] Neutrophils/Leukocytes Auto (Bld) [Pure # fraction] 4.4 E9/L Normal 2.0 - 7.5 E9/L [facility] HEMATOLOGYOrdered By: Lucinda Mcgraw on 01-30-2022 Erythrocyte distribution width (RBC) [Ratio] 13.3 % Normal 10.9 - 14.2 % [facility] Hematocrit (Bld) [Volume fraction] 36.7 % Normal 34.0 - 46.0 % [facility] Hemoglobin (Bld) [Mass/Vol] 12.3 g/dL Normal 12.0 - 16.0 gm/dL [facility] MCH (RBC) [Entitic mass] 30.1 pg Normal 27.0 - 34.0 pg [facility] MCHC (RBC) [Mass/Vol] 33.7 g/dL Normal 31.4 - 36.0 gm/dL [facility] MCV (RBC) [Entitic vol] 89.3 fL Normal 80.0 - 100.0 fL [facility] Platelet mean volume (Bld) [Entitic vol] 9.4 fL Normal 6.4 - 10.8 fL [facility] Platelets (Bld) [#/Vol] 263.0 E9/L Normal 150.0 - 500.0 E9/L [facility] RBC (Bld) [#/Vol] 4.1 E12/L Low 4.3 - 5.9 E12/L [facility] WBC corrected for nucl RBC Auto (Bld) [#/Vol] 7.1 E9/L Normal 4.0 - 11.0 E9/L [facility] Physician Orderon 01-30-2022 Physician Order [id number] :[address] [facility] Physician Order [id number]#1.00CD: [address] [facility] Physician Order [id number]#1.00CD: [address] [facility] Pap IG, rfx Aptima HPV, rfx 16/18,45on 10-04-2020 . . Normal [facility] Comment on above: Result Comment: Perf ormed at: WB Performed By: #### P APHR2A #### [facility] [address] [address] Brayan Wadsworth DIAGNOSIS: Comment Normal [facility] Comment on above: Result Comment: NEGA TIVE FOR INTRAEPITHELIAL LESION OR MALIGNANCY. Performed at: WB Performed By: #### P APHR2A #### [facility] [address] [address] Brayan Wadsworth HPV Aptima Negative Normal Negative [facility] Comment on above: Result Comment: This nucleic acid amplification test detects fourteen high-risk HPV types (16,18,31,33,35,39,45,51,52,56,58,59,66,68) without differentiation. Performed at: =G Performed By: #### P APHR2A #### [facility] [address] [address] Brayan Wadsworth Methodology: Comment [facility] Comment on above: Result Comment: This liquid based ThinPrep(R) pap test was screened with the use of an image guided system. Performed at: WB Performed By: #### P APHR2A #### [facility] [address] [address] Brayan Wadsworth Note: Comment Normal [facility] Comment on above: Result Comment: The Pap smear is a screening test designed to aid in the detection of premalignant and malignant conditions of the uterine cervix. It is not a diagnostic procedure and should not be used as the sole means of detecting cervical cancer. Both false-positive and false-negative reports do occur. . Performed at: WB Performed By: #### P APHR2A #### [facility] [address] [place] [address] Brayan Wadsworth Performed by: Comment Normal [facility] Comment on above: Result Comment: [facility] [employer] Safety Coordinator (ASCP) Performed at: WB Performed By: #### P APHR2A #### [facility] [address] [place] [address] Brayan Wadsworth Specimen adequacy: Comment Normal [facility] Comment on above: Result Comment: Sati sfactory for evaluation. No endocervical component is identified. Performed at: WB Performed By: #### P APHR2A #### [facility] [address] [place] [address] [facility] (CVD[facility])on 08-17 Sample Type Test performed using RT-PCR from a nasopharyngeal collected specimen. Normal [facility] Comment on above: Performed By: #### C VDTBH #### [facility] [address] [place] [address] [facility] SARS-CoV-2 (COVID-19) RNA BINH+probe Ql (Unsp spec) Detected Invalid Interpretation Code NOT DETECTED [facility] Comment on above: Result Comment: This test is not yet approved or cleared by the [place] FDA. When there are no FDA-approved or cleared tests available, and other criteria are met, FDA can make tests available under an emergency access mechanism called an Emergency Use Authorization (EUA). The EUA for this test is supported by the [place] of Health and Human Service's (HHS's) declaration that circumstances exist to justify the emergency use of in vitro diagnostics for the detection and/or diagnosis of the virus that causes COVID-19. This EUA will remain in effect (meaning this test can be used) for the duration of the COVID-19 declaration justifying emergency of IVDs, unless it is terminated or revoked by FDA (after which the test may no longer be used). Performed By: #### [facility] #### [facility] [address] [id number] Brayan Wadsworth US PELVIS AND TRANSVAGon US PELVIS AND TRANSVAG EXAMINATION: US P KAYLYN AND TRANSVAG HISTORY: Abnormal uterine bleeding unrelated to menstrual cycle ; history of polycystic ovarian syndrome COMPARISON: No relevant comparison available. TECHNIQUE: Transabdominal and transvaginal sonographic examination. FINDINGS: UTERUS: Several small anechoic cystic structures within the cervix suspected represent nabothian cysts. Unremarkable uterine myometrium and endometrium. Uterus size: 6.5 x 3.6 x 4.4 cm ENDOMETRIUM: Normal homogeneous appearance. Endometrial thickness: 6 mm RIGHT OVARY: Contains multiple peripherally located follicles, largest is 9 mm. Duplex Doppler demonstrates normal waveform and flow; resistive index 0.56. Ovary size: 3.7 x 2.3 x 2.5 cm LEFT OVARY: Normal size and appearance. Duplex Doppler demonstrates normal waveform and flow; resistive index 0.57. Ovary size: 2.9 x 2.9 x 1.6 cm CUL-DE-SAC: Unremarkable. No significant free fluid. BLADDER: Unremarkable. OTHER: None. IMPRESSION: 1. Multiple small cysts within the cervix favoring nabothian cysts. Otherwise unremarkable uterus and endometrium. 2. Multiple peripherally based small follicles within the right ovary which can be seen with polycystic ovarian syndrome. Unremarkable left ovary. Electronically authenticated by: DINAH WAGNER Date: 2020-08-07 07:34 Normal [facility] CBC AUTO DIFFon 05-18-2020 BASO # 0.1 103/ul Normal 0.0-0.1 [facility] Comment on above: Performed By: #### C BC #### [facility] [address] [place], [place] [id number] Brayan Wadsworth Basophils/100 WBC (Bld) 0.8 % Normal 0.2-2.0 [facility] Comment on above: Performed By: #### C BC #### [facility] [address] [place], [place] [address] Brayan Wadsworth EO # 0.1 103/ul Normal 0.0-0.7 [facility] Comment on above: Performed By: #### C BC #### [facility] [address] [place] [address] Brayanserg Hathawayen Eosinophils/100 WBC (Bld) 1.5 % Normal 0.9-7.0 [facility] Comment on above: Performed By: #### C BC #### [facility] [address] [place] [address] Brayan Ermelinda Erythrocyte distribution width (RBC) [Ratio] 12.4 % Normal 11.0-15.0 [facility] Comment on above: Performed By: #### C BC #### [facility] [address] [place] [address] Brayanserg Hathawayen Hematocrit (Bld) [Volume fraction] 38.3 % Normal 36.0-48.0 [facility] Comment on above: Performed By: #### C BC #### [facility] [address] [place] [address] Brayan Ermelinda Hemoglobin (Bld) [Mass/Vol] 13.1 g/dL Normal 12.0-16.0 [facility] Comment on above: Performed By: #### C BC #### [facility] [address] [place] [address] Brayan Ermelinda IG # 0.01 10e3/ul Normal 0.00-0.03 [facility] Comment on above: Performed By: #### C BC #### [facility] [address] [place] [address] Brayan Ermelinda IG % 0.2 % Normal 0.0-0.5 [facility] Comment on above: Performed By: #### C BC #### [facility] [address] [place] [address] Brayan Ermelinda LYMPH # 1.8 103/ul Normal 1.2-3.8 [facility] Comment on above: Performed By: #### C BC #### [facility] [address] [place] [address] Brayan Ermelinda Lymphocytes/100 WBC (Bld) 29.3 % Normal 20.5-60.0 [facility] Comment on above: Performed By: #### C BC #### [facility] [address] [place], [place] [id number] Brayan Ermelinda MANUAL DIFF REQ NO Normal [facility] Comment on above: Performed By: #### C BC #### [facility] [address] [place], [place] [id number] Brayan Ermelinda MCH (RBC) [Entitic mass] 30.0 pg Normal 26.7-34.0 [facility] Comment on above: Performed By: #### C BC #### [facility] [address] [place] [address] Brayanserg Wadsworth MCHC (RBC) [Mass/Vol] 34.2 g/dL Normal 29.9-35.2 [facility] Comment on above: Performed By: #### C BC #### [facility] [address] [place], [place] [id number] Brayan Ermelinda MCV (RBC) [Entitic vol] 87.8 fL Normal 81.0-99.0 [facility] Comment on above: Performed By: #### C BC #### [facility] [address] [place], [place] [id number] Brayan Ermelinda MONO # 0.4 103/ul Normal 0.3-0.8 [facility] Comment on above: Performed By: #### C BC #### [facility] [address] [place], [place] [id number] Brayan Ermelinda Monocytes/100 WBC (Bld) 7.1 % Normal 1.7-12.0 [facility] Comment on above: Performed By: #### C BC #### [facility] [address] [place], [place] [address] Brayan Ermelinda NEUT # 3.7 103/ul Normal 1.4-6.5 [facility] Comment on above: Performed By: #### C BC #### [facility] [address] [place], [place] [address] Brayan Ermelinda Neutrophils/100 WBC (Bld) 61.1 % Normal 43.0-75.0 [facility] Comment on above: Performed By: #### C BC #### [facility] [address] [place], [place] [address] Brayan Wadsworth Platelet mean volume (Bld) [Entitic vol] 10.9 fL Normal 9.5-13.5 [facility] Comment on above: Performed By: #### C BC #### [facility] [address] [place], [place] [address] Brayanserg Wadsworth PLT 284 103/ul Normal 150-450 [facility] Comment on above: Performed By: #### C BC #### [facility] [address] [place] [address] Brayanserg Wadsworth RBC 4.36 106/ul Normal 4.20-5.40 [facility] Comment on above: Performed By: #### C BC #### [facility] [address] [place] [address] Brayan Wadsworth WBC 6.0 103/ul Normal 4.0-11.0 [facility] Comment on above: Performed By: #### C BC #### [facility] [address] [place] [address] Brayan Wadsworth PREG QUANT HCGon 05-18-2020 HCG QUANT <1 Normal [facility] Comment on above: Performed By: #### T SALLY, PREGQNT, BMP, T4 #### [facility] [address] [place], [place] [address] Brayan Wadsworth HCG RANGE SEE BELOW Normal [facility] Comment on above: Result Comment: 5-50 0-1 WEEK 40-300 1-2 WEEKS 100-1,000 2-3 WEEKS 500-6,000 3-4 WEEKS 5,000-200,000 1-2 MONTHS 10,000-100,000 2-3 MONTHS 3,000-50,000 2ND TRIMESTER 1,000-50,000 3RD TRIMESTER Performed By: #### T SALLY, PREGQNT, BMP, T4 #### [facility] [address] [place], [place] [address] Brayan Ermelinda PROF CHEM 8 (BAS METB)on Anion gap [Moles/Vol] 12.0 mmol/L Normal [facility] Comment on above: Performed By: #### T SALLY, PREGQNT, BMP, T4 #### [facility] [address] [place] [address] Brayan Ermelinda Calcium [Mass/Vol] 8.6 mg/dL Normal 8.4-10.2 [facility] Comment on above: Performed By: #### T SH, PREGQNT, BMP, T4 #### [facility] [address] [place] [address] Brayan Ermelinda Chloride [Moles/Vol] 104 mmol/L Normal 98-107 [facility] Comment on above: Performed By: #### T SH, PREGQNT, BMP, T4 #### [facility] [address] [place] [address] Baryan Ermelinda CO2 [Moles/Vol] 26.0 mmol/L Normal 22.0-30.0 [facility] Comment on above: Performed By: #### T SH, PREGQNT, BMP, T4 #### [facility] [address] [place] [address] Brayan Ermelinda Creatinine [Mass/Vol] 0.86 mg/dL Normal 0.52-1.04 [facility] Comment on above: Performed By: #### T SH, PREGQNT, BMP, T4 #### [facility] [address] [place] [address] Brayan Ermelinda EGFR-AF URUGUAYAN >60 Normal >=60 [facility] Comment on above: Performed By: #### T SH, PREGQNT, BMP, T4 #### [facility] [address] [place] [address] Brayan Ermelinda EGFR-NON AF URUGUAYAN >60 Normal >=60 [facility] Comment on above: Performed By: #### T SH, PREGQNT, BMP, T4 #### [facility] [address] [place] [address] Brayan Ermelinda Glucose [Mass/Vol] 98 mg/dL Normal 74-106 [facility] Comment on above: Performed By: #### T SH, PREGQNT, BMP, T4 #### [facility] [address] [place] [address] Brayan Ermelinda Potassium [Moles/Vol] 4.0 mmol/L Normal 3.4-5.0 [facility] Comment on above: Performed By: #### T SH, PREGQNT, BMP, T4 #### [facility] [address] [place] [address] Brayan Ermelinda Sodium [Moles/Vol] 138 mmol/L Normal 137-145 [facility] Comment on above: Performed By: #### T SH, PREGQNT, BMP, T4 #### [facility] [address] [place] [address] Brayan Ermelinda Urea nitrogen [Mass/Vol] 12.0 mg/dL Normal 7.0-17.0 [facility] Comment on above: Performed By: #### T SH, PREGQNT, BMP, T4 #### [facility] [address] [place] [address] Brayan Ermelinda Urea nitrogen/Creatinine [Mass ratio] 14.0 mg/mg Normal [facility] Comment on above: Performed By: #### T SH, PREGQNT, BMP, T4 #### [facility] [address] [place] [address] Brayan Ermelinda T4on 05-18-2020 T4 [Mass/Vol] 8.70 ug/dL Normal 5.53-11.00 [facility] Comment on above: Performed By: #### T SH, PREGQNT, BMP, T4 #### [facility] [address] [place], [place] [address] Brayan Ermelinda TSHon 05-18-2020 TSH 1.427 uIU/mL Normal 0.470-4.680 [facility] Comment on above: Performed By: #### T SH, PREGQNT, BMP, T4 #### [facility] [address] [place] [address] Brayan Ermelinda TSH RANGE SEE BELOW Normal [facility] Comment on above: Result Comment: <0.3 4 UIU/ml HYPERTHYROID 0.34-5.60 UIU/ml EUTHYROID >5.60 UIU/ml HYPOTHYROID Performed By: #### T SH, PREGQNT, BMP, T4 #### [facility] [address] [place], [place] [address] Brayan Wadsworth XR LSPINE MIN 4 VIEWSon 01-18 XR LSPINE MIN 4 VIEWS EXAMINATION: XR LS PINE MIN 4 VIEWS HISTORY: Low back pain COMPARISON: No relevant comparison available. FINDINGS: BONES: No acute fracture or spondylolisthesis. No significant degenerative spondylosis. Mild facet osteoarthropathy L3-S1 DISC SPACES: Normal. No significant disc height narrowing, subluxation, or endplate abnormality. PARASPINOUS: Negative. No paraspinous abnormality is seen. OTHER: Negative. IMPRESSION: Mild facet osteoarthritis Electronically authenticated by: RIZWANA VAZQUEZ Date: 2020-02-09 09:41 Normal [facility] ANTICARDIOLIPIN ABon 018 JESSICA IGM 0.6 MPL U/mL Normal 0.0 - 20.0 [facility] Comment on above: Result Comment: Elev ated levels of IgM anti-cardiolipin on 2 occasions at least 12 weeks apart are laboratory criteria for anti-phospholipid syndrome according to an international consensus (J Thromb Haemost 2006 4:295). IgM anti-cardiolipin tends to give false positive results in the low positive range, especially in the presence of rheumatoid factor or cryoglobulins. Performed By: #### A CA2 ####[id number] [place] [address] JESSICA IGA <0.5 Normal 0.0 - 20.0 [facility] Comment on above: Result Comment: Elev ated levels of IgA anti-cardiolipin have not been included in the laboratory criteria for anti-phospholipid syndrome according to an international consensus (J Thromb Haemost 2006 4:295). It may be helpful in identifying subgroups of patients at risk for specific clinical manifestations of anti-phospholipid syndrome. Performed By: #### A CA2 ####[id number] [place] [address] JESSICA IGG <1.6 Normal 0.0 - 20.0 [facility] Comment on above: Result Comment: Elev ated levels of IgG anti-cardiolipin on 2 occasions at least 12 weeks apart are laboratory criteria for anti-phospholipid syndrome according to an international consensus (J Thromb Haemost 2006 4:295). Performed By: #### A CA2 ####[id number] [place] [address] BETA 2 GLYCOPROTEIN ABon B2 GLYCOPROTEIN AB IGM 0.8 U/mL Normal 0.0 - 20.0 [facility] Comment on above: Result Comment: Elev ated levels of IgM anti-Beta 2 Glycoprotein-I on 2 occasions at least 12 weeks apart are laboratory criteria for anti-phospholipid syndrome according to an international consensus (J Thromb Haemost 2006 4:295). IgM anti-Beta 2 Glycoprotein-I tends to give false positive results in the low positive range, especially in the presence of rheumatoid factor or cryoglobulins. Performed By: #### B 2GLY ####[id number] [place] [address] B2 GLYCOPROTEIN AB IGA <0.6 Normal 0.0 - 20.0 [facility] Comment on above: Result Comment: Elev ated levels of IgA anti-Beta 2 Glycoprotein-I have not been included in the laboratory criteria for anti-phospholipid syndrome according to an international consensus (J Thromb Haemost 2006 4:295). It may be helpful in identifying subgroups of patients at risk for specific clinical manifestations of anti-phospholipid syndrome. A significant proportion of IgA anti-Beta 2 Glycoprotein- positive tests has no apparent association with any clinical manifestation of anti-phospholipid syndrome. Performed By: #### B 2GLY ####[id number] [place] [address] B2 GLYCOPROTEIN AB IGG <1.4 Normal 0.0 - 20.0 [facility] Comment on above: Result Comment: Elev ated levels of IgG anti-Beta 2 Glycoprotein-I on 2 occasions at least 12 weeks apart are laboratory criteria for anti-phospholipid syndrome according to an international consensus (J Thromb Haemost 2006 4:295). Performed By: #### B 2GLY ####[id number] [place] [address] HEMOGLOBIN A1Con 10-26-2017 Glucose mass conc 94 mg/dL Normal [facility] Comment on above: Performed By: #### H BA1E ####[id number] [place] [address] Hemoglobin A1c/Hemoglobin.total mass fraction (Bld) 4.9 % Normal [facility] Comment on above: Result Comment: Diag nosis of Diabetes-Adults Non-Diabetic: < or = 5.6% Increased risk for developing diabetes: 5.7-6.4% Diagnostic of diabetes: > or = 6.5%. Monitoring of Diabetes Age (y) Therapeutic Goal (%) Adults: >18 <7.0 Pediatrics: 13-18 <7.5 7-12 <8.0 0- 6 7.5-8.5 [place] [employer]. Diabetes Care 33(S1), Apr 2009. Performed By: #### H BA1E ####[id number] [id number] LUPUS ANTICOAG. WITH INTERPR ETATION[LOYOLA]on 10-26-2017 DRVVT CONFIRMATION Canceled Normal [facility] Comment on above: Order Comment: TEST LUPUS ANTICOAG. WITH INTERPRETATION[LOYOAL] WAS CANCELLED, 10/25/2017 23:23Specimen Recieved Thawed.. Performed By: #### L AI ####[id number] [id number] DRVVT SCREEN Canceled Normal [facility] Comment on above: Order Comment: TEST LUPUS ANTICOAG. WITH INTERPRETATION[LOYOLA] WAS CANCELLED, 10/25/2017 23:23Specimen Recieved Thawed.. Performed By: #### L AI ####[id number] [place] [address] DRVVT TEST RATIO Canceled Normal [facility] Comment on above: Order Comment: TEST LUPUS ANTICOAG. WITH INTERPRETATION[LOYOLA] WAS CANCELLED, 10/25/2017 23:23Specimen Recieved Thawed.. Performed By: #### L AI ####[id number] [place] [address] [place] INTERPRETATION Canceled Normal [facility] Comment on above: Order Comment: TEST LUPUS ANTICOAG. WITH INTERPRETATION[LOYOLA] WAS CANCELLED, 10/25/2017 23:23Specimen Recieved Thawed.. Performed By: #### L AI ####[id number] [id number] SCT CONFIRMATION Canceled Normal [facility] Comment on above: Order Comment: TEST LUPUS ANTICOAG. WITH INTERPRETATION[LOYOLA] WAS CANCELLED, 10/25/2017 23:23Specimen Recieved Thawed.. Performed By: #### L AI ####[id number] [id number] SCT SCREEN Canceled Normal [facility] Comment on above: Order Comment: TEST LUPUS ANTICOAG. WITH INTERPRETATION[LOYOLA] WAS CANCELLED, 10/25/2017 23:23Specimen Recieved Thawed.. Performed By: #### L AI ####[id number] [id number] SCT TEST RATIO Canceled Normal [facility] [place] Comment on above: Order Comment: TEST LUPUS ANTICOAG. WITH INTERPRETATION[LOYOLA] WAS CANCELLED, 10/25/2017 23:23Specimen Recieved Thawed.. Performed By: #### L AI ####[place] [id number] [id number] PROLACTINon 10-26-2017 Protein 7.3 ug/L Normal 6.0 - 20.0 [facility] Comment on above: Performed By: #### P ROL ####[place] [id number] [place] [address] TSHon 10-26-2017 Thyroid stimulating hormone (TSH) 1.31 m[IU]/L Normal 0.44 - 3.98 [facility] Comment on above: Result Comment: TSH testing is performed using different testing methodology at [facility] than at other [facility]. Direct result comparisons should only be made within the same method.. Patients receiving more than 5 mg/day of biotin may have interference in test results. A sample should be taken no sooner than eight hours after previous dose. Contact [phone] for additional information. 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 She is a former patient of Dr. Stout Signatures Electronically signed by : Pako Connolly MD; Oct 25 2017 6:37PM EST (Author) Normal [facility] Vital Signs Date Time Vital Sign Value Performing Clinician Facility 11-29-2024 14:28-0400 Body height 157.48 cm Juan Montalvo MD Work Phone: [facility] 11-29-2024 14:28-0400 Body mass index (BMI) [Ratio] 31.8 kg/m2 Juan Montalvo MD Work Phone: [facility] 11-29-2024 14:28-0400 Body weight 78.92 kg Juan Montalvo MD Work Phone: [facility] 11-29-2024 14:28-0400 Diastolic blood pressure 88 mm[Hg] Juan Montalvo MD Work Phone: [facility] 11-29-2024 14:28-0400 Heart rate 87 /min Juan Montalvo MD Work Phone: [facility] 11-29-2024 14:28-0400 Respiratory rate 18 /min Juan Montalvo MD Work Phone: [facility] 11-29-2024 14:28-0400 SaO2% (BldA) [Mass fraction] 98 % Juan Montalvo MD Work Phone: [facility] 11-29-2024 14:28-0400 Systolic blood pressure 122 mm[Hg] Juan Montalvo MD Work Phone: [facility] 11-02-2024 14:57-0400 Body height 157.5 cm Allison Raza MD Work Phone: [facility] 11-02-2024 14:57-0400 Body mass index (BMI) [Ratio] 32.14 kg/m2 Allison Raza MD Work Phone: [facility] 11-02-2024 14:57-0400 Body weight 79.7 kg Allison Rzaa MD Work Phone: [facility] 11-02-2024 14:57-0400 Diastolic blood pressure 81 mm[Hg] Allison Raza MD Work Phone: [facility] 11-02-2024 14:57-0400 Heart rate 82 /min Allison Raza MD Work Phone: [facility] 11-02-2024 14:57-0400 Systolic blood pressure 118 mm[Hg] Allison Raza MD Work Phone: [facility] 09-18-2024 09:56-0400 Body height 157.5 cm Allison Raza MD Work Phone: [facility] 09-18-2024 09:56-0400 Body mass index (BMI) [Ratio] 31.77 kg/m2 Allison Raza MD Work Phone: [facility] 09-18-2024 09:56-0400 Body weight 78.8 kg Allison Raza MD Work Phone: [facility] 09-18-2024 09:56-0400 Diastolic blood pressure 87 mm[Hg] Allison Raza MD Work Phone: [facility] 09-18-2024 09:56-0400 Heart rate 84 /min Allison Raza MD Work Phone: [facility] 09-18-2024 09:56-0400 SaO2% (BldA) [Mass fraction] 100 % Allison Raza MD Work Phone: [facility] 09-18-2024 09:56-0400 Systolic blood pressure 136 mm[Hg] Allison Raza MD Work Phone: [facility] 08-18-2024 15:37-0400 Body height 157.5 cm Abdirashid Hugo MD Work Phone: [facility] 08-18-2024 15:37-0400 Body mass index (BMI) [Ratio] 30.73 kg/m2 Abdirashid Hugo MD Work Phone: [facility] 08-18-2024 15:37-0400 Body weight 76.2 kg Abdirashid Hugo MD Work Phone: [facility] 08-18-2024 15:37-0400 Diastolic blood pressure 81 mm[Hg] Abdirashid Hugo MD Work Phone: [facility] 08-18-2024 15:37-0400 Heart rate 93 /min Abdirashid Hugo MD Work Phone: [facility] 08-18-2024 15:37-0400 Systolic blood pressure 132 mm[Hg] Abdirashid Hugo MD Work Phone: [facility] 08-01-2024 10:23-0400 Body height 157.5 cm Tony Tarcy PA-C Work Phone: [facility] 08-01-2024 10:23-0400 Body mass index (BMI) [Ratio] 31.49 kg/m2 Tony Tarcy PA-C Work Phone: [facility] 08-01-2024 10:23-0400 Body temperature 97.81 [degF] Tony Tarcy PA-C Work Phone: [facility] 08-01-2024 10:23-0400 Body weight 78.1 kg Tony Tarcy PA-C Work Phone: [facility] 08-01-2024 10:23-0400 Diastolic blood pressure 86 mm[Hg] Tony Tarcy PA-C Work Phone: [facility] 08-01-2024 10:23-0400 Heart rate 83 /min Tony Wallace PA-C Work Phone: [facility] 08-01-2024 10:23-0400 Respiratory rate 20 /min Tony Wallace PA-C Work Phone: [facility] 08-01-2024 10:23-0400 SaO2% (BldA) [Mass fraction] 98 % Tony Wallace PA-C Work Phone: [facility] 08-01-2024 10:23-0400 Systolic blood pressure 119 mm[Hg] Tony Wallace PA-C Work Phone: [facility] 07-30-2024 10:07-0400 Body height 157.48 cm [facility] 07-30-2024 10:07-0400 Body mass index (BMI) [Ratio] 31.5 kg/m2 [facility] 07-30-2024 10:07-0400 Body temperature 97.8 [degF] [facility] 07-30-2024 10:07-0400 Body weight 78.18 kg [facility] 07-30-2024 10:07-0400 Diastolic blood pressure 77 mm[Hg] [facility] 07-30-2024 10:07-0400 Heart rate 84 /min [facility] 07-30-2024 10:07-0400 Respiratory rate 18 /min [facility] 07-30-2024 10:07-0400 SaO2% (BldA) [Mass fraction] 98 % [facility] 07-30-2024 10:07-0400 Systolic blood pressure 116 mm[Hg] [facility] 06-08-2024 14:34-0500 Body height 157.48 cm [facility] 06-08-2024 14:34-0500 Body mass index (BMI) [Ratio] 31.2 kg/m2 [facility] 06-08-2024 14:34-0500 Body weight 77.56 kg [facility] 06-08-2024 14:34-0500 Diastolic blood pressure 84 mm[Hg] [facility] 06-08-2024 14:34-0500 Heart rate 85 /min [facility] 06-08-2024 14:34-0500 Respiratory rate 18 /min [facility] 06-08-2024 14:34-0500 SaO2% (BldA) [Mass fraction] 99 % [facility] 06-08-2024 14:34-0500 Systolic blood pressure 122 mm[Hg] [facility] 06-05-2024 09:10-0500 Body height 157.5 cm Abdirashid Hugo MD Work Phone: [facility] 06-05-2024 09:10-0500 Body mass index (BMI) [Ratio] 31.09 kg/m2 Abdirashid Hugo MD Work Phone: [facility] 06-05-2024 09:10-0500 Body weight 77.11 kg Abdirashid Hugo MD Work Phone: [facility] 06-05-2024 09:10-0500 Diastolic blood pressure 86 mm[Hg] Abdirashid Hugo MD Work Phone: [facility] 06-05-2024 09:10-0500 Heart rate 84 /min Abdirashid Hugo MD Work Phone: [facility] 06-05-2024 09:10-0500 Systolic blood pressure 136 mm[Hg] Abdirashid Hugo MD Work Phone: [facility] 03-28-2024 15:07-0500 Body height 157.48 cm [facility] 03-28-2024 15:07-0500 Body mass index (BMI) [Ratio] 31.1 kg/m2 [facility] 03-28-2024 15:07-0500 Body weight 77.11 kg [facility] 03-28-2024 15:07-0500 Diastolic blood pressure 90 mm[Hg] [facility] 03-28-2024 15:07-0500 Heart rate 89 /min [facility] 03-28-2024 15:07-0500 Respiratory rate 18 /min [facility] 03-28-2024 15:07-0500 SaO2% (BldA) [Mass fraction] 99 % [facility] 03-28-2024 15:07-0500 Systolic blood pressure 142 mm[Hg] [facility] 02-14-2024 15:42-0400 Body height 157.5 cm Abdirashid Hugo MD Work Phone: [facility] 02-14-2024 15:42-0400 Body mass index (BMI) [Ratio] 30.36 kg/m2 Abdirashid Hugo MD Work Phone: [facility] 02-14-2024 15:42-0400 Body weight 75.3 kg Abdirashid Hugo MD Work Phone: [facility] 02-14-2024 15:42-0400 Diastolic blood pressure 100 mm[Hg] Abdirashid Hugo MD Work Phone: [facility] 02-14-2024 15:42-0400 Systolic blood pressure 139 mm[Hg] Abdirashid Hugo MD Work Phone: [facility] 02-04-2024 15:14-0400 Body height 157.5 cm Abdirashid Hugo MD Work Phone: [facility] 02-04-2024 15:14-0400 Body mass index (BMI) [Ratio] 30.18 kg/m2 Abdirashid Hugo MD Work Phone: [facility] 02-04-2024 15:14-0400 Body weight 74.84 kg Abdirashid Hugo MD Work Phone: [facility] 02-04-2024 15:14-0400 Diastolic blood pressure 95 mm[Hg] Abdirashid Hugo MD Work Phone: [facility] 02-04-2024 15:14-0400 Systolic blood pressure 151 mm[Hg] Abdirashid Hugo MD Work Phone: [facility] 12-28-2023 14:10-0400 Body height 157.48 cm [facility] 12-28-2023 14:10-0400 Body mass index (BMI) [Ratio] 31.6 kg/m2 [facility] 12-28-2023 14:10-0400 Body weight 78.47 kg [facility] 12-28-2023 14:10-0400 Diastolic blood pressure 93 mm[Hg] [facility] 12-28-2023 14:10-0400 Heart rate 75 /min [facility] 12-28-2023 14:10-0400 Systolic blood pressure 127 mm[Hg] [facility] 12-13-2023 10:05-0400 Body height 157.48 cm MD Juan Montalvo Work Phone: [facility] 12-13-2023 10:05-0400 Body mass index (BMI) [Ratio] 32 kg/m2 MD Juan Montalvo Work Phone: [facility] 12-13-2023 10:05-0400 Body weight 79.43 kg MD Juan Montalvo Work Phone: [facility] 12-13-2023 10:05-0400 Diastolic blood pressure 98 mm[Hg] MD Juan Montalvo Work Phone: [facility] 12-13-2023 10:05-0400 Heart rate 88 /min MD Juan Montalvo Work Phone: [facility] 12-13-2023 10:05-0400 Respiratory rate 18 /min MD Juan Montalvo Work Phone: [facility] 12-13-2023 10:05-0400 SaO2% (BldA) [Mass fraction] 100 % MD Juan Montalvo Work Phone: [facility] 12-13-2023 10:05-0400 Systolic blood pressure 134 mm[Hg] MD Juan Montalvo Work Phone: [facility] 11-26-2023 10:57-0400 Body height 157.48 cm MD Juan Montalvo Work Phone: [facility] 11-26-2023 10:57-0400 Body mass index (BMI) [Ratio] 32.3 kg/m2 MD Juan Montalvo Work Phone: [facility] 11-26-2023 10:57-0400 Body temperature 96.7 [degF] MD Juan Montalvo Work Phone: [facility] 11-26-2023 10:57-0400 Body weight 80.05 kg MD Juan Montalvo Work Phone: [facility] 11-26-2023 10:57-0400 Diastolic blood pressure 74 mm[Hg] MD Juan Montalvo Work Phone: [facility] 11-26-2023 10:57-0400 Heart rate 78 /min MD Juan Montalvo Work Phone: [facility] 11-26-2023 10:57-0400 SaO2% (BldA) [Mass fraction] 96 % MD Juan Montalvo Work Phone: [facility] 11-26-2023 10:57-0400 Systolic blood pressure 118 mm[Hg] MD Juan Montalvo Work Phone: [facility] 09-28-2023 10:14-0400 Body height 157.48 cm MD Juan Montalvo Work Phone: [facility] 09-28-2023 10:14-0400 Body mass index (BMI) [Ratio] 32.5 kg/m2 MD Juan Montalvo Work Phone: [facility] 09-28-2023 10:14-0400 Body weight 80.73 kg MD Juan Montalvo Work Phone: [facility] 09-28-2023 10:14-0400 Diastolic blood pressure 84 mm[Hg] MD Juan Montalvo Work Phone: [facility] 09-28-2023 10:14-0400 Heart rate 108 /min MD Juan Montalvo Work Phone: [facility] 09-28-2023 10:14-0400 Respiratory rate 18 /min MD Juan Montalvo Work Phone: [facility] 09-28-2023 10:14-0400 SaO2% (BldA) [Mass fraction] 98 % MD Juan Montalvo Work Phone: [facility] 09-28-2023 10:14-0400 Systolic blood pressure 120 mm[Hg] MD Juan Montalvo Work Phone: [facility] 09-14-2023 10:09-0400 Diastolic blood pressure 90 mm[Hg] MD Juan Montalvo Work Phone: [facility] 09-14-2023 10:09-0400 Heart rate 102 /min MD Juan Montalvo Work Phone: [facility] 09-14-2023 10:09-0400 Systolic blood pressure 155 mm[Hg] MD Juan Montalvo Work Phone: [facility] 09-14-2023 09:30-0400 SaO2% (BldA) [Mass fraction] 100 % MD Juan Montalvo Work Phone: [facility] 09-14-2023 08:58-0400 Body height 157.48 cm MD Juan Montalvo Work Phone: [facility] 09-14-2023 08:58-0400 Body weight 79.37 kg MD Juan Montalov Work Phone: [facility] 08-17-2023 14:57-0400 Diastolic blood pressure 84 mm[Hg] MD Juan Montalvo Work Phone: [facility] 08-17-2023 14:57-0400 Heart rate 82 /min MD Juan Montalvo Work Phone: [facility] 08-17-2023 14:57-0400 Respiratory rate 18 /min MD Juan Montalvo Work Phone: [facility] 08-17-2023 14:57-0400 Systolic blood pressure 126 mm[Hg] MD Juan Montalvo Work Phone: [facility] 08-17-2023 14:53-0400 Body height 157.48 cm MD Juan Montalvo Work Phone: [facility] 08-17-2023 14:53-0400 Body mass index (BMI) [Ratio] 32.7 kg/m2 MD Juan Montalvo Work Phone: [facility] 08-17-2023 14:53-0400 Body weight 81.19 kg MD Juan Montalvo Work Phone: [facility] 08-17-2023 14:53-0400 SaO2% (BldA) [Mass fraction] 99 % MD Juan Montalvo Work Phone: [facility] 08-12-2023 10:21-0400 Body height 157.48 cm MD Juan Montalvo Work Phone: [facility] 08-12-2023 10:21-0400 Body mass index (BMI) [Ratio] 33.1 kg/m2 MD Juan Montalvo Work Phone: [facility] 08-12-2023 10:21-0400 Body temperature 98.5 [degF] MD Juan Montalvo Work Phone: [facility] 08-12-2023 10:21-0400 Body weight 82.27 kg MD Juan Montalvo Work Phone: [facility] 08-12-2023 10:21-0400 Heart rate 95 /min MD Juan Montalvo Work Phone: [facility] 08-12-2023 10:21-0400 Respiratory rate 18 /min MD Juan Montalvo Work Phone: [facility] 08-12-2023 10:21-0400 SaO2% (BldA) [Mass fraction] 99 % MD Juan Montalvo Work Phone: [facility] 06-18-2023 09:17-0500 Body height 157.48 cm MD Juan Montalvo Work Phone: [facility] 06-18-2023 09:17-0500 Body mass index (BMI) [Ratio] 30.4 kg/m2 MD Juan Montalvo Work Phone: [facility] 06-18-2023 09:17-0500 Body weight 75.49 kg MD Juan Montalvo Work Phone: [facility] 06-18-2023 09:17-0500 Diastolic blood pressure 92 mm[Hg] MD Juan Montalvo Work Phone: [facility] 06-18-2023 09:17-0500 Heart rate 94 /min MD Juan Montalvo Work Phone: [facility] 06-18-2023 09:17-0500 Systolic blood pressure 126 mm[Hg] MD Juan Montalvo Work Phone: [facility] 10-01-2022 10:30-0400 Body height 157.48 cm Juan Montalvo Other [employer] Other 10-01-2022 10:30-0400 Body mass index (BMI) [Ratio] 29.63 kg/m2 Juan Montalvo Other [employer] Other 10-01-2022 10:30-0400 Body weight 73.48 kg Juan Montalvo Other [employer] Other 10-01-2022 10:30-0400 Diastolic blood pressure 78 mm[Hg] Juan Montalvo Other [employer] Other 10-01-2022 10:30-0400 SaO2% (BldA) [Mass fraction] 99 % Juan Montalvo Other [employer] Other 10-01-2022 10:30-0400 Systolic blood pressure 126 mm[Hg] Juan Montalvo Other [employer] Other Encounters Encounter Date Encounter Type Care Provider Facility Start: 12-08-2024 End: 12-08-2024 ambulatory Marizol Jorge PT Work Phone: Physical Therapy Comment on above: Dizziness (Primary D x); Cervicalgia; Headaches Start: 12-01-2024 End: 12-01-2024 ambulatory Marizol Seese PT Work Phone: Physical Therapy Comment on above: Dizzy (Primary Dx); Cervicalgia; Balance problem Start: 11-29-2024 End: 11-29-2024 ambulatory Juan Montalvo MD Work Phone: [facility] Work Phone: Start: 11-29-2024 End: 11-29-2024 Patient encounter procedure Delphine Leyva [facility] Work Phone: Start: 11-27-2024 End: 11-28-2024 ambulatory Allison Raza MD Work Phone: Neurology Start: 11-27-2024 End: 11-28-2024 Patient encounter procedure Allison Raza MD Work Phone: Neurology Comment on above: Referral to Rheumato logy Start: 11-24-2024 End: 11-24-2024 ambulatory ALLISON RAZA Facility:[facility] Start: 11-16-2024 End: 11-16-2024 ambulatory Marizol Seese PT Work Phone: Physical Therapy Comment on above: Dizzy (Primary Dx); Cervicalgia; Balance problem Start: 11-08-2024 End: 11-08-2024 ambulatory Marizol Seese PT Work Phone: Physical Therapy Comment on above: Dizzy (Primary Dx); Cervicalgia; Balance problem Start: 11-02-2024 End: 11-02-2024 Patient encounter procedure Allison Raza MD Work Phone: Neurology Comment on above: Vertigo (Primary Dx) Start: 11-02-2024 End: 11-02-2024 ambulatory ALLISON RAZA Facility:[facility] Start: 10-27-2024 End: 10-30-2024 ambulatory Marizol Seese PT Work Phone: Physical Therapy Comment on above: Cervicalgia (Primary Dx); Dizzy; Vertigo; Balance problem Start: 09-18-2024 End: 09-18-2024 ambulatory ALLISON RAZA Facility:[facility] Start: 09-18-2024 End: 09-18-2024 Patient encounter procedure Allison Raza MD Work Phone: Neurology Comment on above: Vertigo (Primary Dx) ; Dizzy; Chronic daily headache; Globus sensation; Numbness and tingling Start: 09-18-2024 End: 09-18-2024 ambulatory TONY WALLACE Facility:[facility] Start: 08-18-2024 End: 08-18-2024 ambulatory ABDIRASHID HUGO Not Available Start: 08-18-2024 End: 08-18-2024 Office outpatient visit 15 minutes Abdirashid Hugo MD Work Phone: [facility] Comment on above: Meniere's disease of right ear (Primary Dx) Start: 08-18-2024 End: 08-18-2024 Bamboo flowscharlie Hugo MD Work Phone: [facility] Start: 08-18-2024 End: 08-18-2024 Bamboo flowscharlie Hugo MD Work Phone: [facility] Start: 08-14-2024 End: 08-14-2024 Clinical Support Aylin Wilder CCC-A Work Phone: [facility] Comment on above: Meniere disease of r ight ear (Primary Dx); Ear fullness, right Start: 08-14-2024 End: 08-14-2024 Bamboo flowsheet Aylin Wilder CCC-A Work Phone: [facility] Start: 08-14-2024 End: 08-14-2024 Bamboo flowsheet Aylin Wilder CCC-A Work Phone: [facility] Start: 08-01-2024 End: 08-01-2024 Patient encounter procedure Tony Wallace PA-C Work Phone: [facility] Comment on above: Cerebellar tonsillar ectopia (HCC) (Primary Dx); Nonintractable headache, unspecified chronicity pattern, unspecified headache type; Dizzy Start: 08-01-2024 End: 08-03-2024 ambulatory TONY Lazo MADISON Facility:[facility] Start: 07-30-2024 End: 07-30-2024 ambulatory [facility] Work Phone: Start: 07-30-2024 End: 07-30-2024 Patient encounter procedure [facility] Work Phone: Start: 07-03-2024 End: 07-03-2024 ambulatory ABDIRASHID H TIMMIS Not Available Start: 06-20-2024 End: 06-20-2024 ambulatory ABDIRASHID H TIMMIS Not Available Start: 06-08-2024 End: 06-08-2024 ambulatory [facility] Work Phone: Start: 06-08-2024 End: 06-08-2024 Patient encounter procedure [facility] Work Phone: Start: 06-05-2024 End: 06-05-2024 Bamboo flowsheet Abdirashid Hugo MD Work Phone: [facility] Start: 06-05-2024 End: 06-05-2024 Stephon Hugo MD Work Phone: [facility] Start: 06-05-2024 End: 06-05-2024 Office outpatient visit 25 minutes Abdirashid Hugo MD Work Phone: [facility] Comment on above: 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); Right-sided tinnitus; Chronic nonintractable headache, unspecified headache type; Vision changes Start: 06-05-2024 End: 06-05-2024 ambulatory ABDIRASHID H TIMMIS Not Available Start: 05-29-2024 End: 05-29-2024 Telephone encounter Abdirashid Hugo MD Work Phone: [facility] Comment on above: appt question Start: 03-28-2024 End: 03-28-2024 Patient encounter procedure [facility] Work Phone: Start: 02-14-2024 End: 02-14-2024 ambulatory ABDIRASHID H TIMMIS Not Available Start: 02-14-2024 End: 02-14-2024 Office outpatient visit 15 minutes [facility]dirashid Hugo MD [facility] Comment on above: Meniere's disease of right ear (Primary Dx) Start: 02-14-2024 End: 02-14-2024 Bamboo flowsheet Abdirashid Hugo MD Work [facility] Start: 02-14-2024 End: 02-14-2024 Bamboo flowscharlie Hugo MD Work Phone: [facility] Start: 02-11-2024 End: 02-11-2024 Clinical Support Aylin Wilder CCC-A Work Phone: [facility] Comment on above: Meniere disease of r ight ear (Primary Dx); Ear fullness, right Start: 02-11-2024 End: 02-11-2024 Bamboo flowsheet Aylin Wilder CCC-A Work Phone: [facility] Start: 02-11-2024 End: 02-11-2024 Bamboo flowsheet Aylin Wilder CCC-A Work Phone: [facility] Start: 02-04-2024 End: 02-04-2024 Office outpatient new 45 minutes Abdirashid Hugo MD Work Phone: [facility] Comment on above: Meniere's disease of right ear (Primary Dx) Start: 02-04-2024 End: 02-04-2024 ambulatory ABDIRASHID Stein TIMMIS Not Available Start: 02-04-2024 End: 02-04-2024 Bamboo flowscharlie Hugo MD Work Phone: [facility] Start: 02-04-2024 End: 02-04-2024 Bamboo flowsheet Abdirashid Hugo MD Work Phone: [facility] Start: 01-11-2024 ambulatory [facility] Work Phone: Start: 01-11-2024 Non-patient / Non-visit [facility] Work Phone: Start: 01-04-2024 End: 01-04-2024 ambulatory [facility] Work Phone: Start: 01-04-2024 End: 01-04-2024 Patient encounter procedure [facility] Work Phone: Start: 12-28-2023 End: 12-28-2023 ambulatory [facility] Work Phone: Start: 12-28-2023 End: 12-28-2023 Patient encounter procedure [facility] Work Phone: Start: 12-13-2023 End: 12-13-2023 ambulatory MD Juan Montalvo Work Phone: [facility] Work Phone: Start: 12-13-2023 End: 12-13-2023 Patient encounter procedure MD Juan Montalvo Work Phone: [facility] Work Phone: Start: 12-07-2023 Non-patient / Non-visit [facility] Work Phone: Start: 12-07-2023 Non-patient / Non-visit MD Crissy Montalvo Work Phone: [facility] Work Phone: Start: 11-26-2023 End: 11-26-2023 ambulatory MD Juan Montalvo Work Phone: [facility] Work Phone: Start: 11-26-2023 End: 11-26-2023 Patient encounter procedure MD Juan Montalvo Work Phone: [facility] Work Phone: Start: 09-28-2023 End: 09-28-2023 ambulatory MD Juan Montalvo Work Phone: [facility] Work Phone: Start: 09-28-2023 End: 09-28-2023 Patient encounter procedure MD Juan Montalvo Work Phone: [facility] Work Phone: Start: 09-16-2023 Non-patient / Non-visit MD Crissy Montalvo Work Phone: [facility] Work Phone: Start: 09-14-2023 End: 09-14-2023 Patient encounter procedure MD Juan Montalvo Work Phone: [facility] Work Phone: Start: 09-14-2023 End: 09-14-2023 ambulatory MD Juan Montalvo Work Phone: [facility] Work Phone: Start: 08-17-2023 End: 08-17-2023 ambulatory MD Juan Montalvo Work Phone: [facility] Work Phone: Start: 08-17-2023 End: 08-17-2023 Patient encounter procedure MD Juan Montalvo Work Phone: [facility] Work Phone: Start: 08-12-2023 End: 08-12-2023 ambulatory MD Juan Montalvo Work Phone: [facility] Work Phone: Start: 08-12-2023 End: 08-12-2023 Patient encounter procedure MD Juan Montalvo Work Phone: [facility] Work Phone: Start: 07-05-2023 End: 07-05-2023 Patient encounter procedure MD Juan Montalvo Work Phone: [facility] Work Phone: Start: 07-05-2023 End: 07-05-2023 ambulatory MD Juan Montalvo Work Phone: [facility] Work Phone: Start: 07-05-2023 Non-patient / Non-visit MD Crissy Montalvo Work Phone: [facility] Card[facility] Work Phone: Start: 06-18-2023 End: 06-18-2023 Patient encounter procedure MD Juan Montalvo Work Phone: [facility] Work Phone: Start: 10-01-2022 End: 10-01-2022 ambulatory Juan Montalvo Other [facility] [employer] Other Start: 10-01-2022 Office outpatient vi sit 15 minutes Juan Montalvo [facility] Start: 10-01-2022 Telephone encounter Juan Montalvo [facility] Start: 02-03-2022 End: 02-04-2022 ambulatory Phoebe J Wilmer Facility[facility] Start: 02-03-2022 End: 02-03-2022 Patient encounter procedure Phoebe J Wilmer [facility] Start: 01-30-2022 End: 01-31-2022 ambulatory Phoebe J Wilmer Facility:[facility] Start: 01-30-2022 End: 01-30-2022 Lab Drop off Phoebe J Wilmer [facility] Start: 01-30-2022 End: 01-31-2022 ambulatory Phoebe J Wilmer Facility:[facility] Start: 01-30-2022 End: 01-30-2022 Patient encounter procedure Phoebe Terane [facility] Start: 10-01-2020 End: 10-01-2020 ambulatory CADEN LAY Facility:[facility] Start: 08-29-2020 End: 08-30-[address] JUAN MONTALVO Facility:[facility] Start: 08-06-2020 End: 08-07-[address] JUAN MONTALVO Facility:[facility] Start: 05-18-2020 End: 05-19-[address] JUAN MONTALVO Facility:[facility] Start: 02-09-2020 End: 02-10-[address] GABRIELE MONTALVO Facility:[facility] Start: 10-25-2017 Patient encounter Pako Connolly Facility:[facility] Start: 08-25-2017 Patient encounter Fina Stout Facility:[facility] Mikki Finley Start: 03-16-2017 Patient encounter Fina Stout Facility:[facility] David Beltre Start: 02-11-2017 Patient encounter Fina Stout Facility:[facility] David Beltre Procedures Date Procedure Procedure Detail Performing Clinician Start: 08-14-2024 AUDITORY FUNCTION TESTS Aylin Wilder CCC-A Work Phone: Start: 02-11-2024 AUDITORY FUNCTION TESTS Aylin Wilder CCC-A Work Phone: Start: 07-17-2013 section - at term (finding) Phoebe Guillen Start: 06-17-2012 Laparoscopic lysis o f adhesions Phoebe Guillen Comment on above: L/S with LOS and chr omotubation of tubes Plan of Treatment Date Care Activity Detail Author Start: 01-04-2025 End: 01-04-2025 Patient encounter procedure 01/04/2025 2:00 PM EDT Office Visit Neurology [id number] [place] [id number] [place] [id number] [place] [address] Return in about 2 months (around 01/03/2025) for Vertigo. Neurology Comment on above: Return in about 2 mo nths (around 01/03/2025) for Vertigo. Start: 01-02-2025 End: 01-02-2025 ambulatory 01/02/2025 4:15 PM EDT OT/PT/Speech Visit Physical Therapy [address] [place] [address] Marizol Maxwell, PT [address] [place] [address] R42 (ICD-10-CM) - [facility] Comment on above: R42 (ICD-10-CM) - Di zzy Start: 12-18-2024 Influenza vaccination [facility] Start: 12-08-2024 End: 12-08-2024 ambulatory 12/08/2024 10:30 AM EDT OT/PT/Speech Visit Physical Therapy [address] [place] [address] Marizol Maxwell, PT [address] [place] [address] R42 (ICD-10-CM) - [facility] Therapy Comment on above: R42 (ICD-10-CM) - Di zzy Start: 12-01-2024 End: 12-01-2024 ambulatory 12/01/2024 2:30 PM EDT OT/PT/Speech Visit Physical Therapy [address] [place] [address] Marizol Maxwell, PT [address] [place] [address] R42 (ICD-10-CM) - [facility] Physical Therapy Comment on above: R42 (ICD-10-CM) - Di zzy Start: 11-24-2024 End: 11-24-2024 ambulatory 11/24/2024 3:15 PM EDT OT/PT/Speech Visit Physical Therapy [address] [place] [address] Marizol Mawxell, PT [address] [place] [address] R42 (ICD-10-CM) - [facility] Physical Therapy Comment on above: R42 (ICD-10-CM) - Di zzy Start: 11-16-2024 End: 11-16-2024 ambulatory 11/16/2024 8:15 AM EDT OT/PT/Speech Visit Physical Therapy [address] [place] [id number] Marizol Maxwell, PT [address] [place] [address] R42 (ICD-10-CM) - Dizzy Physical Therapy Comment on above: R42 (ICD-10-CM) - Di zzy Start: 11-08-2024 End: 11-08-2024 ambulatory 11/08/2024 2:30 PM EDT OT/PT/Speech Visit Physical Therapy [address] [place] [address] Marizol Maxwell, PT [address] [place] [address] R42 (ICD-10-CM) - [facility]iz[facility] Physical Therapy Comment on above: R42 (ICD-10-CM) - Di zzy Start: 11-02-2024 End: 11-02-2024 Patient encounter procedure 11/02/2024 3:00 PM EDT Office Visit Neurology [address] [place] [address] [place] [address] [id number] [place] [address] Follow up Neurology Comment on above: Follow up Start: 10-27-2024 End: 10-27-2024 Patient encounter procedure 10/27/2024 9:00 AM EDT OT/PT/Speech Visit Physical Therapy [address] [place] [address] Marizol Maxwell, PT [address] [facility] [place] [address] Address concerns from referral Physical Therapy Comment on above: Address concerns fro m referral Start: 09-18-2024 End: 09-18-2024 Patient encounter procedure 09/18/2024 10:00 AM EDT Office Visit Neurology [address] [place] [address] [place] [address] [address] [place] [address] consult per need neuro not headache 08/01 Neurology Comment on above: consult per need neuro not headache 08/01 Start: 08-18-2024 End: 08-18-2024 Patient encounter procedure 08/18/2024 3:30 PM EDT Office Visit [facility] [address] [place], [place] [id number] Abdirashid Hugo MD [address] [facility] [address] [place] [address] [facility] Start: 08-14-2024 End: 08-14-2024 Clinical Support [facility] S[facility] LARA Comment on above: Arrived Start: 06-05-2024 End: 06-05-2024 Patient encounter procedure 06/05/2024 9:10 AM EST Office Visit [facility] [address] [place] [address] Abdirashid Hugo MD [address] [place] [facility] [address] [place] [address] Arrived [facility] Comment on above: Arrived Start: 02-14-2024 End: 02-14-2024 Patient encounter procedure 02/14/2024 3:40 PM EDT Office Visit [facility] [address] [place] [address] Abdirashid Hugo MD [address] [facility] [address] [place] [address] [facility] LANDON LIOR Start: 02-11-2024 End: 02-11-2024 Clinical Support 02/11/2024 2:45 PM EDT Clinical Support [facility] CARABALLO AUD [address] [place] [id number] Aylin Wilder, [facility] [address] [facility] [place] [address] Arrived [facility] ILYA AUD Comment on above: Arrived Start: 02-04-2024 End: 02-04-2024 Patient encounter procedure 02/04/2024 3:00 PM EDT Office Visit [facility] TINAJERO [address] [place] [address] Abdirashid Hugo MD 112 [facility] [address] [place], [place] [id number] Arrived [facility] L[facility]ON [facility] Comment on above: Arrived Start: 01-11-2024 Patient referral [facility] Work Phone: Start: 12-19-2023 Covid-19 Vaccine ( season) Covid-19 Vaccine ( season) [facility] Start: 12-19-2023 Influenza vaccination Influenza Vacc ine (#1) [facility] Start: 09-14-[address] [facility] Start: 06-21-2023 Patient referral [facility] Work Phone: Start: 02-22-2016 Screening for malign ant neoplasm of cervix [facility] Start: 2013 HPV Vaccine (1 - 3-d ose SCDM series) HPV Vaccine (1 - 3-dose SCDM series) [facility] Start: 2007 Screening for malign ant neoplasm of cervix [facility] Start: 2005 Hepatitis B Vaccine (1 of 3 - 19+ 3-dose series) Hepatitis B Vaccine (1 of 3 - 19+ 3-dose series) [facility] Start: 2005 Urine microalbumin profile DTaP,Tdap,Td Vaccine (1 - Tdap) [facility] Start: 02-22-2004 Anxiety Screening Anxiety Screening [facility] Start: 02-22-2004 Depression Screening Depression Scre ening [facility] Start: 02-22-2004 Hepatitis C screening Hepatitis C Sc reetomas [facility] Start: 02-22-2004 HIV screening HIV Screening [facility] Patient referral [facility] Work Phone: Tilt table test [facility] Payers Date Payer Category Payer Self-pay 2021 [employer] Blue [employer] [id number] 2021 Unknown [id number] 1986 Unknown [id number] 2.16.84 [id number] 1986 Unknown [id number] 2.16.84 0.1.388294.3.579.2.593 1986 Unknown [id number] 2.16.84 0.1.511130.3.579.2.593 1986 Unknown [id number] 2.16.84 0.1.290611.3.579.2.593 1986 Unknown [id number] 2.16.84 0.1.976198.3.579.2.593 1986 Unknown [id number] 2.16.8 40.1.326690.3.579.2.727 1986 Unknown [id number] 2.16.8 40.1.229042.3.579.2.727 1986 Unknown [id number] 2.16.8 40.1.998116.3.579.2.727 1986 Unknown [id number] 2.16.84 0.1.528863.3.579.2.1259 1986 Unknown [id number] 2.16.84 0.1.614909.3.579.2.9 1986 Unknown [id number] 2.16.84 0.1.305680.3.579.2.1259 1986 Unknown [id number] 2.16.84 0.1.886995.3.579.2.9 1986 Unknown [id number] 2.16.84 0.1.887479.3.579.2.1259 1986 Unknown [id number] 2.16.84 0.1.122126.3.579.2.9 1986 Unknown [id number] 2.16.84 0.1.443223.3.579.2.9 1986 Unknown [id number] 2.16.84 0.1.945546.3.579.2.1259 1959 Unknown [id number] Private Health Insurance [id number] Unknown [id number] 2.16.8 40.1.654643.3.579.2.531 Unknown [id number] 2.16.8 40.1.974586.3.579.2.531 Unknown [id number] 2.16.8 40.1.860533.3.579.2.531 Social History Date Type Detail Facility Start: 11-07-2018 End: 08-01-2024 Tobacco smoking status Never smoked tobacco (finding) [facility] Start: 08-16-2012 Tobacco smoking status Never [facility] Start: 02-04-2024 End: 08-01-2024 Sex Assigned At Female [facility] Start: 1985 Sex Assigned At Female F [facility] Start: 12-07-2022 End: 08-01-2024 Tobacco use and exposure Smokeless tobacco non-user [facility] Start: 02-04-2024 End: 11-02-2024 Alcoholic beverage intake Ex-drinker (finding) [facility] Start: 02-04-2024 End: 08-01-2024 History of Social function [facility] Start: 12-07-2022 Alcohol Comment 3-4 times a ye ar (1-2 cans each time) [facility] Start: 1985 Sex assigned at Not on file [facility] Start: 06-08-2024 End: 07-30-2024 Sex Female (finding) [facility] NEGATED: Highlighted rowStart: NINF History of tobacco use Passive smoker [facility] Clinical Notes 10-01-2022 to 12-08-2024 Marizol Maxwell, PT - 12/08/2024 10:48 AM Marizol Maddox, PT - 12/01/2024 2:44 PM EDTTelephone Encounter - Allison Raza MD - 11/27/2024 8:12 PM Marizol Maddox, PT - 11/16/2024 8:30 AM EDT Note Date & Type Note Facility 12-08-2024 Note HNO ID: [id number] Author: MARIZOL MAXWELL, PT Service: ? Author Type: Physical Therapist Type: Progress Notes Filed: 12/12/2024 09:15 Note Text: Episode Visit Count: 6 Therapist That Will Accept/Oversee The Plan Of Care: Marizol Maxwell Start of Care Date: 10/27/24 Onset Date: [...] Home Exercise Program Assigned: 1: Access Code: [email or web address] URL: [email or web address] Date: 10/27/2024 Prepared by: Marizol Maxwell Exercises - Gaze Stabilization HORIZONTAL - 3 [...] 1045 Session Stop Time : 1128 Marizol Maxwell, PT [facility] 12-08-2024 History of Presen t illness Narrative Episode Visit Count: 6 Therapist That Will Accept/Oversee The Plan Of Care: Marizol Maxwell Start of Care Date: 10/27/24 Onset Date: [...] Home Exercise Program Assigned: 1: Access Code: [email or web address] URL: [email or web address] Date: 10/27/2024 Prepared by: Marizol Maxwell Exercises - Gaze Stabilization HORIZONTAL - 3 [...] 1045 Session Stop Time : 1128 Marizol Maxwell PT documented in this encounter [facility] 12-01-2024 Note HNO ID: [id number] Author: MARIZOL MAXWELL PT Service: ? Author Type: Physical Therapist Type: Progress Notes Filed: 12/02/2024 23:25 Note Text: Episode Visit Count: 5 Therapist That Will Accept/Oversee The Plan Of Care: Marizol Maxwell Start of Care Date: 10/27/24 Onset Date: 11/18/23 REHABILITATION AND SPORTS THERAPY PHYSICAL THERAPY PROGRESS REPORT PLAN OF CARE UPDATE: Assessment: Tanja Soto demonstrates moderate improvement in sitting and physical activities and minimal improvement in dizziness during ADL. The patient has progressed toward goals. Patient continues to present with impairments in ADL's, balance, gait, independence in exercise, overall function, patient reported outcome measures, posture, strength, stress management, symptom management, and tissue tenderness that interfere with ADL, work, sleep, driving . Current prognosis is goodGood due to: current objective clinical presentation, good overall health status, good support system/ coping skills, Prognosis may be limited due to multiple co- morbidities (Neck Pain, EDS, migraine) . The patient will benefit from continued skilled therapy services to meet the updated goals for this plan of care as noted below. Goals for Episode of Care: established 10/27/24 Updated 12/02/24: Patient will decrease DHI score to less than 14/100 (evaluation: 32/100). NT today Patient will be independent with home exercise program and progression. PA- onging Patient will return to prior level of function with all activities of daily living with trace reports of dizziness. PA- still with turning/repeated mvt Patient will deny dizziness with bending, turning , working, and repeated movements. PA- turning and bending repeatedly still challenging Patient will demonstrate the ability to complete VOR in static and dynamic positions with trace report of dizziness. 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 Time Frame for Goals and Treatment : 01/19/25 Planned Interventions, Frequency, and Duration: 1x/week, 6 weeks Total Number of Visits Planned: 6 Patient to be seen for Therapeutic exercise (56199), Neuromuscular re-education (51013), Manual therapy (26665), Therapeutic activities (17712), Self-correction management (39528), Gait Training (55658), Patient/Family/Caregiver Education, Canalith Repositioning Maneuvers (33695), Functional training PLAN FOR NEXT VISIT: IASTM/Cupping PRN; Progress DCF; Postural ex ([place]ons?); Assess for flexion habituation if + response to ball circles SUBJECTIVE: . Reports IASTM + Cupping was very effective in reducing pain/stiffness in her neck/shoulders last session without adverse reaction post. Notices strength improving in her neck, swallowing is a bit easier too Is on waiting list for EDS specialist consultation Still experiencing dizziness with multiple quick turns/turning Pain: Pain Pain Level: 0 PROMIS Scales 11/24/2024 10/25/2024 Higher is Better Self-Eff Symptom - T Score 46 (Average) 48 (Average) Self-Eff Symptom - Percentile 34 42 09/16/2024 Lower is Better Pain Interference - T Score 60 (mild) Pain Interference - Percentile 16 T-Score and Percentile Interpretation T-scores: mean of general population = 50. 5 points is clinically meaningfully difference Percentiles provide an indication of how the patient's score ranks in relation to the general population. Higher percentile rankings indicate better function/quality of life. 50th percentile is the average of the general population and indicates half of respondents had a worse score. OBJECTIVE MEASURES WITH LEVEL OF FUNCTION: Oculomotor Testing Fixation Present VOR to slow head movements: (Harder in the evenings) X1 Viewing - Horizontal: 15s Recovery time 30s X1 Viewing - Vertical: 20s Recovery 15s TREATMENT: Neuromuscular Re-Education: 1: 180 degree turns R/L both 2/10 sx and 3-5s to recover each time 2: Ball Circles- CW- 4/10 sx, 10-15s recovery time. Feels like vision doubles around the 1-3 o'clock area, does habituate to 2-3/10 and 5s recovery with increased repetition 3: *Ball Circles CCW with 2-3/10 sx and 5-10s recovery; does habituate to 1/10 sx and 5s recovery with increased repetition 4: HEP Review- Continue 5: Goal Review Skilled Intervention: Skilled judgment used to assess appropriate program for balance and coordination activity. Reviewed and educated patient on additions/changes for home program as noted above with an (*). Patient education as noted. Skilled judgement used to assess appropriate program for vestibular adaptation, substitution and balance coordination activities. Self-Half-Way Management: 1: Edu on type of IASTM recommended for home use. Link provided Skilled Intervention: Educated the patient regarding recommendations and provided written instruction to facilitate compliance. Home Exercise Program As (more content not included)... [facility] 12-01-2024 History of Presen t illness Narrative Images from the original note were not included. Episode Visit Count: 5 Therapist That Will Accept/Oversee The Plan Of Care: Marizol Maxwell Start of Care Date: 10/27/24 Onset Date: 11/18/23 REHABILITATION AND SPORTS THERAPY PHYSICAL THERAPY PROGRESS REPORT PLAN OF CARE UPDATE: Assessment: Tanja Soto demonstrates moderate improvement in sitting and physical activities and minimal improvement in dizziness during ADL. The patient has progressed toward goals. Patient continues to present with impairments in ADL's, balance, gait, independence in exercise, overall function, patient reported outcome measures, posture, strength, stress management, symptom management, and tissue tenderness that interfere with ADL, work, sleep, driving . Current prognosis is goodGood due to: current objective clinical presentation, good overall health status, good support system/ coping skills, Prognosis may be limited due to multiple co- morbidities (Neck Pain, EDS, migraine) . The patient will benefit from continued skilled therapy services to meet the updated goals for this plan of care as noted below. Goals for Episode of Care: established 10/27/24 Updated 12/02/24: Patient will decrease DHI score to less than 14/100 (evaluation: 32/100). NT today Patient will be independent with home exercise program and progression. PA- onging Patient will return to prior level of function with all activities of daily living with trace reports of dizziness. PA- still with turning/repeated mvt Patient will deny dizziness with bending, turning , working, and repeated movements. PA- turning and bending repeatedly still challenging Patient will demonstrate the ability to complete VOR in static and dynamic positions with trace report of dizziness. 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 Reports IASTM + Cupping was very effective in reducing pain/stiffness in her neck/shoulders last session without adverse reaction post. Notices strength improving in her neck, swallowing is a bit easier too Is on waiting list for EDS specialist consultation Still experiencing dizziness with multiple quick turns/turning Pain: Pain Pain Level: 0 PROMIS Scales 11/24/2024 10/25/2024 Higher is Better Self-Eff Symptom - T Score 46 (Average) 48 (Average) Self-Eff Symptom - Percentile 34 42 09/16/2024 Lower is Better Pain Interference - T Score 60 (mild) Pain Interference - Percentile 16 T-Score and Percentile Interpretation T-scores: mean of general population = 50. 5 points is clinically meaningfully difference Percentiles provide an indication of how the patient's score ranks in relation to the general population. Higher percentile rankings indicate better function/quality of life. 50th percentile is the average of the general population and indicates half of respondents had a worse score. OBJECTIVE MEASURES WITH LEVEL OF FUNCTION: Oculomotor Testing Fixation Present VOR to slow head movements: (Harder in the evenings) X1 Viewing - Horizontal: 15s Recovery time 30s X1 Viewing - Vertical: 20s Recovery 15s TREATMENT: Neuromuscular Re-Education: 1: 180 degree turns R/L both 2/10 sx and 3-5s to recover each time 2: Ball Circles- CW- 4/10 sx, 10-15s recovery time. Feels like vision doubles around the 1-3 o'clock area, does habituate to 2-3/10 and 5s recovery with increased repetition 3: *Ball Circles CCW with 2-3/10 sx and 5-10s recovery; does habituate to 1/10 sx and 5s recovery with increased repetition 4: HEP Review- Continue 5: Goal Review Skilled Intervention: Skilled judgment used to assess appropriate program for balance and coordination activity. Reviewed and educated patient on additions/changes for home program as noted above with an (*). Patient education as noted. Skilled judgement used to assess appropriate program for vestibular adaptation, substitution and balance coordination activities. Self-Half-Way Management: 1: Edu on type of IASTM recommended for home use. Link provided Skilled Intervention: Educated the patient regarding recommendations and provided written instruction to facilitate compliance. Home Exercise Program Assigned: 1: Access Code: [email or web address] URL: [email or web address] Date: 10/27/2024 Prepared by: Marizol Maxwell Exercises - Gaze Stabilization HORIZONTAL - 3 [...] body length when asymptomatic with CCW) Billing Neuromuscular Re-Education Treatment Minutes: 30 Self-Care/Home Management Treatment Minutes: 5 Skilled Treatment Time Minutes (timed and untimed codes): 35 Total Session Time (minutes): 40 Session Start Time : 1440 Session Stop Time : 1520 Marizol Maxwell PT documented in this encounter [facility] 11-27-2024 Telephone encounter Note Order filed. Allison Raza MD [facility] 11-27-2024 Miscellaneous Notes Order filed. Allison Raza MD documented in this encounter [facility] 11-24-2024 Note HNO ID: [id number] Author: MARIZOL MAXWELL PT Service: ? Author Type: Physical Therapist Type: Progress Notes Filed: 11/24/2024 16:56 Note Text: Episode Visit Count: 4 Therapist That Will Accept/Oversee The Plan Of Care: Marizol Maxwell Start of Care Date: 10/27/24 Onset Date: 11/18/23 REHABILITATION AND SPORTS THERAPY PHYSICAL THERAPY TREATMENT NOTE ASSESSMENT: Tanja Soto tolerated the session with no issues. She demonstrated difficulty with tolerance to UT DN-- not planning further DN at this time. Good wilmar in-session to IASTM today and cupping. Noting upper cervical hypermobility- possible instability. Rec seeking flex/ext x-rays to measure. Progressing stabilization training today. The patient will continue to benefit from ongoing skilled physical therapy to progress toward set goals. PLAN FOR NEXT VISIT: Progress DCF; consider habituation; assess response to IASTM and cupping longer term SUBJECTIVE: Reports a rough 36hrs had some tight/spasm and angrier and then started going into soreness for a day or so. Nothing really helped except time. Some pocket of fluid for that time as well. Dizziness is more intermittent. Was on a doc this weekend and had to be caught- almost fell to her left. Was a floating doc. Driving- merging into construction 3 to 1 lanes. Doing a lot of head turns and got dizzy. Feeling like maybe dehydration vs. True DOSS Pain: Pain Pain Level: 2 Pain Location: Neck - Right Description: Sore Frequency: Continuous Post Treatment Pain Post Treatment Pain Level: No Change OBJECTIVE MEASURES WITH LEVEL OF FUNCTION: Spine Observations R Cervical Spine Palpation Tenderness: Levator scapulae, Suboccipitals, Paraspinals, Scalenes, Upper trapezius (LS trigger point) Cervical Spine ROM Cervical Flexion AROM: Normal (tight both sides) Cervical Extension AROM: Minimal limitation Cervical Side-Bend Right AROM: Normal Cervical Side-Bend Left AROM: Normal Cervical Rotation Right AROM: Normal Cervical Rotation Left AROM: Normal (Hypermobile) Upper Cervical AROM: C1 60deg PROM L; 40 deg PROM R Spine Joint Mobility Gross Segmental Mobility: OA SB- hypermobile BECK Upper Cervical Rotation : (Hypermobile) Upper Cervical Flexion: (L>R hypermobile) UE and Cervical Strength Strength Tested: Cervical Deep Neck Flexor Endurance: Unable without occipital substitution Balance Static Standing Balance: Narrow Base of Support Narrow Base of Support: FIRM EO WNL; FIRM EC WNL; FOAM EO min sway; FOAM EC Mod sway but no LOB. TREATMENT: Therapeutic Exercise: 1: HEP Review- Continue as wilmar. 2: Cervical re-assessment as above 3: Tuck and lift- see above 4: *R Sidelying tuck and lift- 3-5s to substitution, cues to use thumb to help encourage deeper tuck as wilmar. 5: L Sidelying tuck and lift- 10s minimal substitution, no difficulty reported by pt. -HOLD FOR NOW Skilled Intervention: Patient was educated in proper exercise technique and purpose for exercises. Reviewed and educated patient on additions/changes for home exercise program as above (*). Skilled judgment was used in selection of appropriate interventions. Patient education as noted. Manual Therapy: 1: IASTM R UT/Levator/Scalene 2: TPR R Levator 3: Cupping to R Levator TrP- reduced post. 4: No change to pain Skilled Intervention: Manual skills to improve joint mobility, ROM, and decrease pain. Utilized anatomy knowledge of the clinician, and assessment of patient's response to intervention. Neuromuscular Re-Education: 1: Balance assessments 2: *FOAM EC ROMBERG at home 30s x 3-- Mod sway improves to min sway then to WNL with increased time. 3: Ed on upper cervical role in balance/equilibrium. Skilled Intervention: Skilled judgment used to assess appropriate program for balance and coordination activity. Correct performance of home program was facilitated with verbal and visual cueing. Self-Half-Way Management: 1: Sleep positioning education; try rolled towel at base of pillow for lordotic support 2: Signs of upper cervical instability- rec flex/ext x-ray to assess Skilled Intervention: Reviewed patient specific diagnosis in relation to activities of daily living/home management. Home Exercise Program Assigned: 1: Access Code: [email or web address] URL: [email or web address] Date: 10/27/2024 Prepared by: Marizol Maxwell Exercises - Gaze Stabilization HORIZONTAL - 3 [...] 5 reps daily 6: EC [place]omberg FOAM Billing Therapeutic Exercise Treatment Minutes: 29 Manual TherapyTreatment Minutes: 15 Neuromuscular Re-Education Treatment Minutes: 15 Self-Care/Home Man (more content not included)... [facility] 11-16-2024 Note HNO ID: [id number] Author: MARIZOL MAXWELL, PT Service: ? Author Type: Physical Therapist Type: Progress Notes Filed: 11/16/2024 09:40 Note Text: Episode Visit Count: 3 Therapist That Will Accept/Oversee The Plan Of Care: Marizol Maxwell Start of Care Date: 10/27/24 Onset Date: 11/18/23 REHABILITATION AND SPORTS THERAPY PHYSICAL THERAPY TREATMENT NOTE ASSESSMENT: Tanja Soto tolerated the session with no issues. She demonstrated difficulty with cervical tension and increased dizziness this past week, back to her baseline today. Struggled progressing HEP due to this. Dn initiated for cervical spine today, as well as DCF. The patient will continue to benefit from ongoing skilled physical therapy to progress toward set goals. PLAN FOR NEXT VISIT: Assess response to DN, consider dosage increase, progress DCF, VOR. Consider habituation. SUBJECTIVE: Reports had a few days where she felt like the recovery of the vertigo and then re-set over night and great day yesterday. Weather has always affected her, unsure if more so now? Pain: Pain Pain Level: 4 Pain Location: Neck - Right Description: Tightness Frequency: Continuous Post Treatment Pain Post Treatment Pain Level: No Change OBJECTIVE MEASURES WITH LEVEL OF FUNCTION: Cervical Spine ROM Cervical Retraction AROM: Normal Cervical Flexion AROM: Minimal limitation Cervical Extension AROM: Minimal limitation Cervical Side-Bend Right AROM: Minimal limitation Cervical Side-Bend Left AROM: Minimal limitation Cervical Rotation Right AROM: Minimal limitation Cervical Rotation Left AROM: Normal TREATMENT: Therapeutic Exercise: 1: HEP Review- Continue as noted below. Skilled Intervention: Skilled judgment was used in selection of appropriate interventions. Patient education as noted. Manual Therapy: 1: DN Education Education re: Integrative Dry Needling- what to expect Educated on IDN 1. neuroanatomical basis, microlesion creation increasing bloodflow to neuro TrPs; normalizing inflammatory response, pain mediation through peripheral and central mechanisms, enhancing the body's self healing mechanism. NOT acupuncture. 2. Fine filament needle (pushed through vs. Cutting skin) Feelings may include stinging when needle inserted, local twitch response (electric shock, cramp, or deep ache sensation). May not feel anything. 3. Adverse Effects discussed 4. Post needling expectation: symptom relief, relaxation, soreness 1-2 days normal, no change, mild bruising, potential for temporary increase of symptoms (rare). 5. Discussed 5-10 needles max on first day, taking conservative approach, and will modify dosage based on response. 2: DN Cosent Risks Explained (bruising, soreness, pneumothorax, infection, nerve injury) Pt reports: no blood thinners; no chance of ; no immune system concerns; no diseases or infection known to transmit though bodily fluids 3: DN Supine to R UT (2) with pistoning to fatigue; L UT (1) with pistoning to fatigue; R C3 Lateral paraspinal (1) and R posterior [place] (1) using [id number] needles with good tolerance during 4: Reports no immediate post change in tension, states usually takes some time to feel effects. 5: Advised stretching and heat if sore; lots of water today. Skilled Intervention: Manual skills to improve joint mobility, ROM, and decrease pain. Utilized anatomy knowledge of the clinician, and assessment of patient's response to intervention. Neuromuscular Re-Education: 1: Vertical VOR is much easier, maybe 1 out of every 10 sessions will have some dizziness. 2: Review VOR progressions- indicated to progress vertical, but hold on horizontal for now. 3: Ball on Wall DCF activation- good technique, 5s holds x 10 Skilled Intervention: Reviewed and educated patient on additions/changes for home program DCF Patient education as noted. Skilled judgement used to assess appropriate program for vestibular adaptation, substitution and balance coordination activities. Home Exercise Program Assigned: 1: Access Code: [email or web address] URL: [email or web address] Date: 10/27/2024 Prepared by: Marizol Maxwell Exercises - Gaze Stabilization HORIZONTAL - 3 [...] Ball on wall x 10 5-10s holds Billing Therapeutic Exercise Treatment Minutes: 5 Manual TherapyTreatment Minutes: 10 Neuromuscular Re-Education Treatment Minutes: 15 Skilled Treatment Time Minutes (timed and untimed codes): 30 Total Session Time (minutes): 30 Session Start Time : 827 Session Stop Time : 857 Marizol Maxwell, PT [facility] 11-16-2024 History of Presen t illness Narrative Episode Visit Count: 3 Therapist That Will Accept/Oversee The Plan Of Care: Marizol Maxwell Start of Care Date: 10/27/24 Onset Date: 11/18/23 REHABILITATION AND SPORTS THERAPY PHYSICAL THERAPY TREATMENT NOTE ASSESSMENT: Tanja Soto tolerated the session with no issues. She demonstrated difficulty with cervical tension and increased dizziness this past week, back to her baseline today. Struggled progressing HEP due to this. Dn initiated for cervical spine today, as well as DCF. The patient will continue to benefit from ongoing skilled physical therapy to progress toward set goals. PLAN FOR NEXT VISIT: Assess response to DN, consider dosage increase, progress DCF, VOR. Consider habituation. SUBJECTIVE: Reports had a few days where she felt like the recovery of the vertigo and then re-set over night and great day yesterday. Weather has always affected her, unsure if more so now? Pain: Pain Pain Level: 4 Pain Location: Neck - Right Description: Tightness Frequency: Continuous Post Treatment Pain Post Treatment Pain Level: No Change OBJECTIVE MEASURES WITH LEVEL OF FUNCTION: Cervical Spine ROM Cervical Retraction AROM: Normal Cervical Flexion AROM: Minimal limitation Cervical Extension AROM: Minimal limitation Cervical Side-Bend Right AROM: Minimal limitation Cervical Side-Bend Left AROM: Minimal limitation Cervical Rotation Right AROM: Minimal limitation Cervical Rotation Left AROM: Normal TREATMENT: Therapeutic Exercise: 1: HEP Review- Continue as noted below. Skilled Intervention: Skilled judgment was used in selection of appropriate interventions. Patient education as noted. Manual Therapy: 1: DN Education Education re: Integrative Dry Needling- what to expect Educated on IDN 1. neuroanatomical basis, microlesion creation increasing bloodflow to neuro TrPs; normalizing inflammatory response, pain mediation through peripheral and central mechanisms, enhancing the body's self healing mechanism. NOT acupuncture. 2. Fine filament needle (pushed through vs. Cutting skin) Feelings may include stinging when needle inserted, local twitch response (electric shock, cramp, or deep ache sensation). May not feel anything. 3. Adverse Effects discussed 4. Post needling expectation: symptom relief, relaxation, soreness 1-2 days normal, no change, mild bruising, potential for temporary increase of symptoms (rare). 5. Discussed 5-10 needles max on first day, taking conservative approach, and will modify dosage based on response. 2: DN Cosent Risks Explained (bruising, soreness, pneumothorax, infection, nerve injury) Pt reports: no blood thinners; no chance of ; no immune system concerns; no diseases or infection known to transmit though bodily fluids 3: DN Supine to R UT (2) with pistoning to fatigue; L UT (1) with pistoning to fatigue; R C3 Lateral paraspinal (1) and R posterior Scalene (1) using [id number] needles with good tolerance during 4: Reports no immediate post change in tension, states usually takes some time to feel effects. 5: Advised stretching and heat if sore; lots of water today. Skilled Intervention: Manual skills to improve joint mobility, ROM, and decrease pain. Utilized anatomy knowledge of the clinician, and assessment of patient's response to intervention. Neuromuscular Re-Education: 1: Vertical VOR is much easier, maybe 1 out of every 10 sessions will have some dizziness. 2: Review VOR progressions- indicated to progress vertical, but hold on horizontal for now. 3: Ball on Wall DCF activation- good technique, 5s holds x 10 Skilled Intervention: Reviewed and educated patient on additions/changes for home program DCF Patient education as noted. Skilled judgement used to assess appropriate program for vestibular adaptation, substitution and balance coordination activities. Home Exercise Program Assigned: 1: Access Code: [email or web address] URL: [email or web address] Date: 10/27/2024 Prepared by: Marizol Maxwell Exercises - Gaze Stabilization HORIZONTAL - 3 [...] Ball on wall x 10 5-10s holds Billing Therapeutic Exercise Treatment Minutes: 5 Manual TherapyTreatment Minutes: 10 Neuromuscular Re-Education Treatment Minutes: 15 Skilled Treatment Time Minutes (timed and untimed codes): 30 Total Session Time (minutes): 30 Session Start Time : 827 Session Stop Time : 857 Marizol Maxwell PT documented in this encounter [facility] 11-08-2024 Note HNO ID: [id number] Author: MARIZOL MAXWELL PT Service: ? Author Type: Physical Therapist Type: Progress Notes Filed: 11/08/2024 16:06 Note Text: Episode Visit Count: 2 Therapist That Will Accept/Oversee The Plan Of Care: Marizol Maxwell Start of Care Date: 10/27/24 Onset Date: 11/18/23 REHABILITATION AND SPORTS THERAPY PHYSICAL THERAPY TREATMENT NOTE ASSESSMENT: Tanja Soto tolerated the session with no issues. She demonstrated difficulty with increased dizziness today. 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 Recommend cervical intervention and stabilization to enhance stability of adaptation to UVH. The patient will continue to benefit from ongoing skilled physical therapy to progress toward set goals. PLAN FOR NEXT VISIT: Assess response to cervical intervention, progress DCF, VOR. Consider habituation. Ball on wall SUBJECTIVE: Feels like sx are fluctuating, having good and bad days. Typical bad day- vertical VOR are much harder. Has tiny shifts in the eyes, or difficulty focusing even at rest today. Some days this is not present. 13 RTC R shoulder, scar tissue and surgery x 2 DOesn't sleep on R side, wakes in pain from R shoulder. Lays on L very often. Pain: Pain Pain Level: 2 Pain Location: (bitemporal) Description: Aching Frequency: Continuous Post Treatment Pain Post Treatment Pain Level: No Change OBJECTIVE MEASURES WITH LEVEL OF FUNCTION: Posture / Alignment Posture: Forward head (Increased UT mm tone R>L sitting) Spine Observations R Cervical Spine Palpation Tenderness: Suboccipitals, Paraspinals, Upper trapezius (UT trigger point; C3 TVP tenderness with referral to R eye) L Cervical Spine Palpation Tenderness: Suboccipitals, Upper trapezius (mild C3 TVP tenderness, mild TTP less painful than R) Oculomotor Testing Fixation Removed Spontaneous Nystagmus: Left beat Gaze Evoked Nystagmus: Not present Positional Testing Right Kim-Hallpike: No nystagmus, Asymptomatic Left [place]-Hallpike: Left beat, Asymptomatic Supine Head Center Testing: Left beat, Asymptomatic Right Ear Down: No nystagmus, Asymptomatic Left Ear Down: No nystagmus, Asymptomatic, Comments Left Ear Down Comments: After about 20 sec delay very mild small aplitude LBN noted. Return to center with moderate LBN noted initially but paroxysmal. [place] Test: Left beat Lean Test: (No nystagmus) Positional Test Comments: ?able UVH Cervical Spine ROM Cervical Retraction AROM: Minimal limitation Cervical Flexion AROM: Minimal limitation (pulling) Cervical Extension AROM: Minimal limitation Cervical Side-Bend Right AROM: Normal Cervical Side-Bend Left AROM: Minimal limitation (pulling R side) Cervical Rotation Right AROM: Minimal limitation (R side always knot, tight/tense) Cervical Rotation Left AROM: Normal Upper Cervical AROM: C1 R restriction noted Spine Joint Mobility Upper Cervical Rotation : Right restriction, Increased pain, Moderate loss Upper Cervical Flexion: Bilateral restriction, Right more restricted than left, Minimal loss Special Tests - Cervical Cervical Special Tests: Flexion-Rotation Test Flexion-Rotation Test: Right Positive, Left Negative Gait Gait Observation: normal gait TREATMENT: Therapeutic Exercise: 1: Reviewed exercises completed during last stent of Neck PT (Seated retraction>extensions, scap t-band, scap with weights. No stretching/mobilizations, no DCF. 2: Cervical assessment as noted above 3: OA nods supine on pillow and 3 rolled towel x 10 with cues for technique and activation of DCF 4: R C1 ROT SNAG with towel x 5, cues for technique. 5: *ROM ROT R improved post session today, no change DOSS. Skilled Intervention: Patient was educated in proper exercise technique and purpose for exercises. Skilled judgment was used in selection of appropriate interventions. Provided written instruction for home exercise program to facilitate proper performance and compliance. Patient education as noted. Neuromuscular Re-Education: 1: VOR Review- some days able to get up to 30-40 seconds. 2: Today- recommended on dizzy days to reduce speed to approx 75bpm to start. Can always increase of too easy/no sx stimulation better to do this vs. no ex at all. 3: VOR PRogression review 4: Positional Testing as noted above Pt assisted through each position of SCC testing manually and with verbal directions, eye movements assessed by PT throughout. 5: Educated on findings/impressions (suspect she had UVH, but cervical instability is likely impairing full compensation, bernie with hypermobile EDS) Skilled Intervention: Patient education as noted. Skilled judgement used to assess appropriate program for vestibular adaptation, substitution and balance coordination activities. Skilled judgement used to assess appropriate positioning for vestibular positional testin (more content not included)... [facility] 11-08-2024 History of Presen t illness Narrative Episode Visit Count: 2 Therapist That Will Accept/Oversee The Plan Of Care: Marizol Maxwell Start of Care Date: 10/27/24 Onset Date: 11/18/23 REHABILITATION AND SPORTS THERAPY PHYSICAL THERAPY TREATMENT NOTE ASSESSMENT: Tanja Soto tolerated the session with no issues. She demonstrated difficulty with increased dizziness today. 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 Recommend cervical intervention and stabilization to enhance stability of adaptation to UVH. The patient will continue to benefit from ongoing skilled physical therapy to progress toward set goals. PLAN FOR NEXT VISIT: Assess response to cervical intervention, progress DCF, VOR. Consider habituation. Ball on wall SUBJECTIVE: Feels like sx are fluctuating, having good and bad days. Typical bad day- vertical VOR are much harder. Has tiny shifts in the eyes, or difficulty focusing even at rest today. Some days this is not present. 13 RTC R shoulder, scar tissue and surgery x 2 DOesn't sleep on R side, wakes in pain from R shoulder. Lays on L very often. Pain: Pain Pain Level: 2 Pain Location: (bitemporal) Description: Aching Frequency: Continuous Post Treatment Pain Post Treatment Pain Level: No Change OBJECTIVE MEASURES WITH LEVEL OF FUNCTION: Posture / Alignment Posture: Forward head (Increased UT mm tone R>L sitting) Spine Observations R Cervical Spine Palpation Tenderness: Suboccipitals, Paraspinals, Upper trapezius (UT trigger point; C3 TVP tenderness with referral to R eye) L Cervical Spine Palpation Tenderness: Suboccipitals, Upper trapezius (mild C3 TVP tenderness, mild TTP less painful than R) Oculomotor Testing Fixation Removed Spontaneous Nystagmus: Left beat Gaze Evoked Nystagmus: Not present Positional Testing Right Kim-Hallpike: No nystagmus, Asymptomatic Left [place]-Hallpike: Left beat, Asymptomatic Supine Head Center Testing: Left beat, Asymptomatic Right Ear Down: No nystagmus, Asymptomatic Left Ear Down: No nystagmus, Asymptomatic, Comments Left Ear Down Comments: After about 20 sec delay very mild small aplitude LBN noted. Return to center with moderate LBN noted initially but paroxysmal. [place] Test: Left beat Lean Test: (No nystagmus) Positional Test Comments: ?able UVH Cervical Spine ROM Cervical Retraction AROM: Minimal limitation Cervical Flexion AROM: Minimal limitation (pulling) Cervical Extension AROM: Minimal limitation Cervical Side-Bend Right AROM: Normal Cervical Side-Bend Left AROM: Minimal limitation (pulling R side) Cervical Rotation Right AROM: Minimal limitation (R side always knot, tight/tense) Cervical Rotation Left AROM: Normal Upper Cervical AROM: C1 R restriction noted Spine Joint Mobility Upper Cervical Rotation : Right restriction, Increased pain, Moderate loss Upper Cervical Flexion: Bilateral restriction, Right more restricted than left, Minimal loss Special Tests - Cervical Cervical Special Tests: Flexion-Rotation Test Flexion-Rotation Test: Right Positive, Left Negative Gait Gait Observation: normal gait TREATMENT: Therapeutic Exercise: 1: Reviewed exercises completed during last stent of Neck PT (Seated retraction>extensions, scap t-band, scap with weights. No stretching/mobilizations, no DCF. 2: Cervical assessment as noted above 3: OA nods supine on pillow and 3 rolled towel x 10 with cues for technique and activation of DCF 4: R C1 ROT SNAG with towel x 5, cues for technique. 5: *ROM ROT R improved post session today, no change DOSS. Skilled Intervention: Patient was educated in proper exercise technique and purpose for exercises. Skilled judgment was used in selection of appropriate interventions. Provided written instruction for home exercise program to facilitate proper performance and compliance. Patient education as noted. Neuromuscular Re-Education: 1: VOR Review- some days able to get up to 30-40 seconds. 2: Today- recommended on dizzy days to reduce speed to approx 75bpm to start. Can always increase of too easy/no sx stimulation better to do this vs. no ex at all. 3: VOR PRogression review 4: Positional Testing as noted above Pt assisted through each position of SCC testing manually and with verbal directions, eye movements assessed by PT throughout. 5: Educated on findings/impressions (suspect she had UVH, but cervical instability is likely impairing full compensation, bernie with hypermobile EDS) Skilled Intervention: Patient education as noted. Skilled judgement used to assess appropriate program for vestibular adaptation, substitution and balance coordination activities. Skilled judgement used to assess appropriate positioning for vestibular positional testing using verbal and/or tactile cueing. Home Exercise Program Assigned: 1: Access Code: [email or web address] URL: [email or web address] Date: 10/27/2024 Prepared by: Marizol Maxwell Exercises - Gaze Stabilization HORIZONTAL - 3 x daily - 7 x weekly - 1 sets - 1 reps - Seated Gaze Stabilization with Head Nod - 3 x daily - 7 x weekly - 1 sets - 1 reps Patient Education - What Is Vestibular Hypofunction? 2: OA nods supine 3: R C1 ROT SNAG with towel Billing Therapeutic Exercise Treatment Minutes: 31 Neuromuscular Re-Education Treatment Minutes: 25 Skilled Treatment Time Minutes (timed and untimed codes): 56 Total Session Time (minutes): 56 Session Start Time : 1432 Session Stop Time : 1528 Marizol Maxwell PT documented in this encounter [facility] 11-02-2024 Note HNO ID: [id number] Author: ALLISON RAZA MD Service: ? Author Type: Physician Type: Progress Notes Filed: 11/02/2024 18:29 Note Text: [facility] Name: Tanja Soto Age: [age] year old Gender: female Primary Care Provider: No primary care provider on file. History of Present Illness: She is seen in follow-up today for vertigo. She believes that the symptoms are essentially unchanged. She has only undergone one vestibular physical therapy sessions thus far. The results of her laboratory studies were unremarkable. She has not initiated treatment with the clonazepam. Neurologic Examination: She is awake, alert, pleasant, cooperative and coherent. Stance is normal and she walks well. There is no definite Rombergism. Cranial Nerves: II-visual calzada full III IV -extraocular movements normal VII-muscles of facial expression normal in power bilaterally Motor System: The tendon reflexes are symmetric. Other Observations: The Quix maneuver and Past-Pointing test are negative bilaterally. Labs: Lab Results Component Value Date WBC 5.47 09/18/2024 HCT 41.6 09/18/2024 MCV 89.8 09/18/2024 PLT 348 09/18/2024 No results found for: HBA1C No results found for: CHOL , HDL , LDL , TG Assessment/Plan: In summary, although clinically there appears not to have been any improvement, no findings on examination consistent with vestibular system dysfunction are evident today. This was discussed with her. I have encouraged her to persevere with regard to the vestibular physical therapy and a follow-up visit has been scheduled. I spent a total of 24 minutes on the date of the service which included [id number] patient care, completing clinical documentation, obtaining and/or reviewing separately obtained history, performing a medically appropriate examination, counseling and educating the patient/family/caregiver, and communicating results to the patient/family/caregiver Tanja Soto This note was dictated using [employer] speech recognition software and may contain some errors that were a result of the program not accurately transcribing what was dictated, despite efforts to make corrections. Note that unless urgent, test and MRI results will be discussed at next follow-up visit. PROMIS? (Patient-Reported Outcomes Measurement Information System) is a set of person-centered measures that evaluates and monitors physical, social, and emotional health. It can be used with the general population and with individuals living with chronic conditions. PROMIS 10: PHYSICAL AND MENTAL HEALTH: [facility] 11-02-2024 History of Presen t illness Narrative Images from the original note were not included. [facility] Name: Tanja Soto Age: [age] year old Gender: female Primary Care Provider: No primary care provider on file. History of Present Illness: She is seen in follow-up today for vertigo. She believes that the symptoms are essentially unchanged. She has only undergone one vestibular physical therapy sessions thus far. The results of her laboratory studies were unremarkable. She has not initiated treatment with the clonazepam. Neurologic Examination: She is awake, alert, pleasant, cooperative and coherent. Stance is normal and she walks well. There is no definite Rombergism. Cranial Nerves: II-visual calzada full III IV -extraocular movements normal VII-muscles of facial expression normal in power bilaterally Motor System: The tendon reflexes are symmetric. Other Observations: The Quix maneuver and Past-Pointing test are negative bilaterally. Labs: Lab Results Component Value Date WBC 5.47 09/18/2024 HCT 41.6 09/18/2024 MCV 89.8 09/18/2024 PLT 348 09/18/2024 No results found for: HBA1C No results found for: CHOL , HDL , LDL , TG Assessment/Plan: In summary, although clinically there appears not to have been any improvement, no findings on examination consistent with vestibular system dysfunction are evident today. This was discussed with her. I have encouraged her to persevere with regard to the vestibular physical therapy and a follow-up visit has been scheduled. I spent a total of 24 minutes on the date of the service which included [id number] patient care, completing clinical documentation, obtaining and/or reviewing separately obtained history, performing a medically appropriate examination, counseling and educating the patient/family/caregiver, and communicating results to the patient/family/caregiver Tanja Soto This note was dictated using [employer] speech recognition software and may contain some errors that were a result of the program not accurately transcribing what was dictated, despite efforts to make corrections. Note that unless urgent, test and MRI results will be discussed at next follow-up visit. PROMIS (Patient-Reported Outcomes Measurement Information System) is a set of person-centered measures that evaluates and monitors physical, social, and emotional health. It can be used with the general population and with individuals living with chronic conditions. PROMIS 10: PHYSICAL AND MENTAL HEALTH: documented in this encounter [facility] 10-27-2024 History of Presen t illness Narrative Program_ID:[id number] Access Code: [email or web address] URL: [email or web address] Date: 10-27-2024 Prepared By: Marizol Maxwell Program Notes Exercises - Gaze Stabilization HORIZONTAL - 3 x daily - 7 x weekly - 1 sets - 1 reps - Seated Gaze Stabilization with Head Nod - 3 x daily - 7 x weekly - 1 sets - 1 reps Patient Education - What Is Vestibular Hypofunction? Images from the original note were not included. 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 The patient presents with impairments in ADL's, balance, gait, independence in exercise, overall function, patient reported outcome measures, and symptom management. PROMIS (Patient-Reported Outcomes Measurement Information System) scores were reviewed and identified as a rehabilitation concern. Prognosis for therapy is Good due to: current objective clinical presentation, good overall health status, good support system/ coping skills, Prognosis may be limited due to multiple co- morbidities (Neck Pain, EDS, migraine) . 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 DHI= 32/100 indicative of High Mild Dizziness Handicap. The patient will benefit from skilled therapy services to meet the goals established for this plan of care as noted below. Goals for Episode of Care: established 10/27/24 Patient will decrease DHI score to less than 14/100 (evaluation: 32/100). Patient will be independent with home exercise program and progression. Patient will return to prior level of function with all activities of daily living with trace reports of dizziness. Patient will deny dizziness with bending, turning , working, and repeated movements. Patient will demonstrate the ability to complete VOR in static and dynamic positions with trace report of dizziness. Additional cervical and balance assessments to be completed as appropriate, additional goals to follow. 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 IR goggle exam, balance and cervical assessments as needed. Patient demonstrates good understanding of plan of care and treatment. The above goals and plan of care were discussed and agreed upon by patient/family. SUBJECTIVE: Been having dizziness for some time- At least JAN 2022 when dizziness first bothered her. Got a little worse after that. Some mold concerns with her workplace. Last November (2023) had very bad vertigo event which took multiple days to recover from it. ER in middle of night- ear infection and sent home. 1 month later- fullness in ear (R)- ENT- Meniere's disease Has not had vestibular testing, and audiogram without low frequency hearing loss. Used Meclizine to help with dizziness. Still getting frequent DOSS. ENT ordered MRI borderline Chiari Malformation Saw neurosurg- truly borderline Chiari- likely not causing her sx Sent to general neurologist vestibular disease Feels worse when at school. Dx Hypermobile EDS Classroom spinning, kitchen/cooking 2 worst sx provocation areas. Onset: November 2023 Triggers: quick turns/movements or repeated turns/movements. Concurrent Neck symptoms: Awful Dejenerative disc in a few spots in neck. CTJ feels unstable, can get instant relief by popping neck. Tried PT for neck and wasn't getting anywhere. Concurrent DOSS symptoms: t/o entire life. Mom awful migraine. Hers: Throbbing, typically starts R side and then whole head; light/bright sensitivity; no sound sensitivity; occasional nausea, not often. 2000mg Tylenol to subside. Doesn't take anything. DOSS daily, light sensitive about 1x/month Concurrent Ear/Hearing symptoms: Pressure/fullness used to be more R sided, can flip flop now between L and R. L ear just started a month ago. Gets ringing- not consistent. Can notice before a DOSS is coming on. Stays a few minutes. Longer than that during vertigo in Nov. Concurrent Jaw Symptoms: has been feeling more tense; occasionally waking with jaw pn, goes away within a few minutes. Imbalance: interesting - day to day is pretty good. First step or first thing in succession takes some time. Spinning to answer a question- feels like going to fall over. Motion Sensitivity: Driving fine- passenger anywhere motion sick- has had most of life, significantly worse over the last 5 yrs and vertigo in Nov. Falls a lot of near misses History of Concussion: no Brainstem Red Flags Diplopia no Dysarthria no Dysphagia no Drop Attack no Dizziness yes Nausea hasn't had any since first month or so Nystagmus feels when dizzy Numbness denies Ataxia of Gait no Wakes at night d/t N/T. 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 MRI Cervical Spine 04/21/23: Summarized as degenerative changes of cervical spine, noted for small disc bulge C5-6 and C6-7. 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 5 points is clinically meaningfully difference Percentiles provide an indication of how the patient's score ranks in relation to the general population. Higher percentile rankings indicate better function/quality of life. 50th percentile is the average of the general population and indicates half of respondents had a worse score. OBJECTIVE MEASURES WITH LEVEL OF FUNCTION: Oculomotor Testing Fixation Present Ocular ROM: WNL Spontaneous Nystagmus: No nystagmus Gaze Evoked Nystagmus: Not Present Smooth pursuit: Horizontal, Vertical and Diagonal all WNL Saccadic eye movements: Horizontal, vertical and oblique all WNL. Head Thrusts: Left positive VOR to slow head movements: Positive X1 Viewing - Horizontal: + 10s seated plain background at 100bpm + Mild sx with 10s recovery time X1 Viewing - Vertical: + 10s at 100bpm, seated, plain background, barely sx provocation and 2-3s recovery time. Cervical Spine ROM Cervical ROM : Limitation AROM Cervical Extension AROM: Normal Cervical Rotation Right AROM: Normal Cervical Rotation Left AROM: Normal Gait Gait Observation: normal gait- no overt LOB or veering noted today. Education: Education Learning Preferences: Demonstration, Explanation, Performance, Printed Materials Barriers: Acuity of Illness Learning/educational needs: Health promotion, Safety, Home exercise program, Plan of Care, Changes in Plan of Care, Posture, Gait Training Education Provided: Yes, see treatment interventions for education provided Education Provided To: Patient Education Mode/Type: Demonstration, Explanation/Discussion, Literature/Printed Materials, Performance, Teach Back Response to Education/Teach Back: States/Identifies, Return Demonstration, Requires Review/Additional Education TREATMENT: PT Treatment Interventions: Self-Half-Way Management, Neuromuscular Re-Education Evaluation Evaluation Neuromuscular Re-Education: 1: VORx1 hz, 10s, seated, plain background, 100bpm with mild sx provoked and 20s recovery time. 2: VORx1 vt, 10s, seated, plain background, 100bpm. Mild 1/10 sx and recovery in 3-5 s. 3: Educated that goal is to produce MILD (4/10 or less intensity) sx and RECOVERABLE (recovery to baseline within 1 min or less) 4: VOR Progression Education *If symptoms return to baseline as soon as you stop, increase intensity (increase speed, time, background, or body position). *If symptoms last longer than 1 minute before returning to baseline, decrease intensity (decrease speed, time, background, or body position difficulty). *Progressions may include: speed up to 120 bpm, time up to 2 minutes, background to busy/complex (checkerboard patterns), body position to standing or narrow OPAL positions. *Work up to 20 min total of eye exercises per day. Skilled Intervention: Patient education as noted. Skilled judgement used to assess appropriate program for vestibular adaptation, substitution and balance coordination activities. Self-Half-Way Management: 1: Vestibular Education Pt/family education on inner ear anatomy, objective findings, and physiology as well as pathologies that effect this area. Educated on POC. Discussed PT role in testing and addressing. 2: Ed on exam findings- suspect UVH given history. However, treatment may be complex 2/2 c/s pain, Hypermobile EDS, Migraine, Chiari. 3: Ed on prognisis of Chronic Hypofunction and expected timelines/outcomes. 4: recommend not to avoid sx activities (turning L vs. R) but to do them slower with more time between. Skilled Intervention: Educated the patient regarding recommendations and provided written instruction to facilitate compliance. Reviewed patient specific diagnosis in relation to activities of daily living/home management. Home Exercise Program Assigned: 1: Access Code: [email or web address] URL: [email or web address] Date: 10/27/2024 Prepared by: Marizol Maxwell Exercises - Gaze Stabilization HORIZONTAL - 3 x daily - 7 x weekly - 1 sets - 1 reps - Seated Gaze Stabilization with Head Nod - 3 x daily - 7 x weekly - 1 sets - 1 reps Patient Education - What Is Vestibular Hypofunction? Billing * Evaluation Low Complexity: 1 Unit Neuromuscular Re-Education Treatment Minutes: 15 Self-Care/Home Management Treatment Minutes: 25 Skilled Treatment Time Minutes (timed and untimed codes): 58 Total Session Time (minutes): 58 Session Start Time : 0902 Session Stop Time : 1000 Marizol Maxwell PT documented in this encounter [facility] 10-27-2024 Note HNO ID: [id number] Author: MARIZOL MAXWELL PT Service: ? Author Type: Physical Therapist Type: Progress Notes Filed: 10/27/2024 16:42 Note Text: Episode Visit Count: 1 Therapist That Will Accept/Oversee The Plan Of Care: Marizol Maxwell Start of Care Date: 10/27/24 Onset Date: 11/18/23 Patient Identified by Name and Date of : Yes REHABILITATION AND SPORTS THERAPY PHYSICAL THERAPY EVALUATION PLAN OF CARE: Assessment: Tanja Soto presents with chief complaint of dizziness and imbalance since big episode of Vertigo Nov 2023 that interferes with Comments teaching, housework, ADL. The patient presents with impairments in ADL's, balance, gait, independence in exercise, overall function, patient reported outcome measures, and symptom management. PROMIS? (Patient-Reported Outcomes Measurement Information System) scores were reviewed and identified as a rehabilitation concern. Prognosis for therapy is Good due to: current objective clinical presentation, good overall health status, good support system/ coping skills, Prognosis may be limited due to multiple co- morbidities (Neck Pain, EDS, migraine) . 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 DHI= 32/100 indicative of High Mild Dizziness Handicap. Thepatient will benefit from skilled therapy services to meet the goals established for this plan of care as noted below. Goals for Episode of Care: established 10/27/24 Patient will decrease DHI score to less than 14/100 (evaluation: 32/100). Patient will be independent with home exercise program and progression. Patient will return to prior level of function with all activities of daily living with trace reports of dizziness. Patient will deny dizziness with bending, turning , working, and repeated movements. Patient will demonstrate the ability to complete VOR in static and dynamic positions with trace report of dizziness. Additional cervical and balance assessments to be completed as appropriate, additional goals to follow. 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 IR goggle exam, balance and cervical assessments as needed. Patient demonstrates good understanding of plan of care and treatment. The above goals and plan of care were discussed and agreed upon by patient/family. SUBJECTIVE: Been having dizziness for some time- At least JAN 2022 when dizziness first bothered her. Got a little worse after that. Some mold concerns with her workplace. Last November (2023) had very bad vertigo event which took multiple days to recover from it. ER in middle of night- ear infection and sent home. 1 month later- fullness in ear (R)- ENT- Meniere's disease Has not had vestibular testing, and audiogram without low frequency hearing loss. Used Meclizine to help with dizziness. Still getting frequent DOSS. ENT ordered MRI borderline Chiari Malformation Saw neurosurg- truly borderline Chiari- likely not causing her sx Sent to general neurologist vestibular disease Feels worse when at school. Dx Hypermobile EDS Classroom spinning, kitchen/cooking 2 worst sx provocation areas. Onset: November 2023 Triggers: quick turns/movements or repeated turns/movements. Concurrent Neck symptoms: Awful Dejenerative disc in a few spots in neck. CTJ feels unstable, can get instant relief by popping neck. Tried PT for neck and wasn't getting anywhere. Concurrent DOSS symptoms: t/o entire life. Mom awful migraine. Hers: Throbbing, typically starts R side and then whole head; light/bright sensitivity; no sound sensitivity; occasional nausea, not often. 2000mg Tylenol to subside. Doesn't take anything. DOSS daily, light sensitive about 1x/month Concurrent Ear/Hearing symptoms: Pressure/fullness used to be more R sided, can flip flop now between L and R. L ear just started a month ago. Gets ringing- not consistent. Can notice before a DOSS is coming on. Stays a few minutes. Longer than that during vertigo in Nov. Concurrent Jaw Symptoms: has been feeling more tense; occasionally waking with jaw pn, goes away within a few minutes. Imbalance: interesting - day to day is pretty good. First step or first thing in succession takes some time. Spinning to answer a question- feels like going to fall over (more content not included)... [facility] 09-18-2024 History and physical note Ms. Tanja Soto is referred by Tony Wallace for an initial outpatient consultation primarily because of vertigo and imbalance. She is a 39-year-old right-handed white female with a past medical history significant for hypertension and juvenile Reactive Airways Disease. During November, she abruptly developed vertigo which resolved over about four days. In April of this year the dizziness returned probably much more gradually and was more fragmentary. More precisely qualitatively it was more of a shifting, rocking or swaying sensation and there is at least equivocal history of a sense of being pulled, pushed, drawn, veering or tilting to her left. This has been a persistent albeit fluctuating phenomenon but over the last month or so there may have been some improvement. With this she developed episodic tinnitus this binaural although more prominent on the right as well as a sense of fullness in the right ear. She was evaluated by otolaryngology and diagnosed with M ni re's Disease. Currently she is being treated with a low-salt diet. Interestingly she has been subject to motion sickness for the last eleven years or so. Magnetic resonance imaging of the brain was unremarkable although a mild Chiari type I malformation was noted for which she was evaluated by neurosurgery. She has also had two episodes of spasms involving the right eye by which she means forceful closure of the eye. The first of these lasted 15 minutes this on August 03, 2024 and the second and last on August 24 lasting about 2 hours. Other symptoms have included a sense that food is stuck in her throat as well as a foreign body sensation. Nocturnal numbness/tingling in various body areas have been noted for about the last 2 years. She has had chronic headaches for several years commonly associated with spots for a variable interval during the headache. The headache typically begins bi- posteriorly, has a bandlike squeezing quality with an occasional pulsatile quality. The headaches may occasionally be associated with nausea, vomiting and photophobia. Recumbency is beneficial and she has rarely been awakened by headache. There is an equivocal history of headache onset with coughing, sneezing, Valsalva maneuvers or rapid movements. She has been having these headaches daily for the last few years lasting from one to a few hours. Traditionally she has been taking acetaminophen for headaches and had been taking up to 50-60 of these weekly. She has never been treated prophylactically. She denies any history of unexplained fevers, night sweats, rashes, pain/swelling/erythema of any of her joints. Past Medical History: Her past medical history is as previously delineated. Family History: Her mother had headaches. Otherwise there is no history in her family of inherited problems with coordination, Multiple Sclerosis, muscular dystrophy, peripheral nerve disease, parkinsonism, dementia, recurrent troublesome headaches or seizure disorder. Psychosocial History: She has been 18 years and has one child who is healthy save for exercise-induced Reactive Airways Disease. She is a non-smoker/non-drinker. 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 Review of Systems: Her history of headache is as previously delineated. There is no history of syncope or seizure and she denies any weakness, wasting, unusual cramping or twitching of her muscles, numbness or tingling save for occasional muscle twinges in various body areas. There are no visual difficulties aside from wearing corrective lenses and she denies any aberration of her sense of hearing, taste or smell. Speech, swallowing, bladder and bowel function are unimpaired. There is no history of head injury sufficient to cause loss of consciousness, fracture of the spinal column, meningitis or encephalitis. Neurologic examination on September 18, 2024 revealed an awake, alert, pleasant, cooperative and coherent woman. Stance was normal and there was no rombergism. Gait including tandem walk was performed well as were the rapid alternating movements of the tongue fingers and toes as well as [id number] testing. Cranial Nerves: II-visual calzada full III IV -extraocular movements normal VII-muscles of facial expression normal in power bilaterally XII-tongue midline Motor System: Strength in the deltoids, biceps, triceps, wrist extensors, finger extensors, interossei, iliopsoas, quadriceps, hamstrings, anterior tibialis and toe extensors was normal. There was no significant tendon reflex asymmetry and no Babinski response. Sensory System: Joint position and vibration sensation were intact. Other Observations: The Quix maneuver and Past-Pointing test were positive to her right. The H I T maneuver was compatible with a peripheral localization of vestibular system dysfunction. In summary, the history and examination would be most compatible with vertigo secondary to right-sided vestibular system dysfunction this most likely peripheral in localization. The findings would be compatible with M ni re's disease. After further consideration we will refer her for vestibular physical therapy and in addition lest she be evolving an underlying rheumatologic condition we have ordered laboratory studies to consist of a CBC with differential, comprehensive metabolic panel, TSH, erythrocyte sedimentation rate, C-reactive protein, rheumatoid factor, VALDEMAR panel, angiotensin-converting enzyme and ANCA antibody. 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 She is to keep us advised as to her status and contact us for the results of her studies although alternatively she may access these via [employer]. A follow-up visit has been scheduled. [facility] 09-18-2024 History and physical note Ms. Tanja Soto is referred by Tony Wallace for an initial outpatient consultation primarily because of vertigo and imbalance. She is a 39-year-old right-handed white female with a past medical history significant for hypertension and juvenile Reactive Airways Disease. During November, she abruptly developed vertigo which resolved over about four days. In April of this year the dizziness returned probably much more gradually and was more fragmentary. More precisely qualitatively it was more of a shifting, rocking or swaying sensation and there is at least equivocal history of a sense of being pulled, pushed, drawn, veering or tilting to her left. This has been a persistent albeit fluctuating phenomenon but over the last month or so there may have been some improvement. With this she developed episodic tinnitus this binaural although more prominent on the right as well as a sense of fullness in the right ear. She was evaluated by otolaryngology and diagnosed with M ni re's Disease. Currently she is being treated with a low-salt diet. Interestingly she has been subject to motion sickness for the last eleven years or so. Magnetic resonance imaging of the brain was unremarkable although a mild Chiari type I malformation was noted for which she was evaluated by neurosurgery. She has also had two episodes of spasms involving the right eye by which she means forceful closure of the eye. The first of these lasted 15 minutes this on August 03, 2024 and the second and last on August 24 lasting about 2 hours. Other symptoms have included a sense that food is stuck in her throat as well as a foreign body sensation. Nocturnal numbness/tingling in various body areas have been noted for about the last 2 years. She has had chronic headaches for several years commonly associated with spots for a variable interval during the headache. The headache typically begins bi- posteriorly, has a bandlike squeezing quality with an occasional pulsatile quality. The headaches may occasionally be associated with nausea, vomiting and photophobia. Recumbency is beneficial and she has rarely been awakened by headache. There is an equivocal history of headache onset with coughing, sneezing, Valsalva maneuvers or rapid movements. She has been having these headaches daily for the last few years lasting from one to a few hours. Traditionally she has been taking acetaminophen for headaches and had been taking up to 50-60 of these weekly. She has never been treated prophylactically. She denies any history of unexplained fevers, night sweats, rashes, pain/swelling/erythema of any of her joints. Past Medical History: Her past medical history is as previously delineated. Family History: Her mother had headaches. Otherwise there is no history in her family of inherited problems with coordination, Multiple Sclerosis, muscular dystrophy, peripheral nerve disease, parkinsonism, dementia, recurrent troublesome headaches or seizure disorder. Psychosocial History: She has been 19 years and has one child who is healthy save for exercise-induced Reactive Airways Disease. She is a non-smoker/non-drinker. 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 Review of Systems: Her history of headache is as previously delineated. There is no history of syncope or seizure and she denies any weakness, wasting, unusual cramping or twitching of her muscles, numbness or tingling save for occasional muscle twinges in various body areas. There are no visual difficulties aside from wearing corrective lenses and she denies any aberration of her sense of hearing, taste or smell. Speech, swallowing, bladder and bowel function are unimpaired. There is no history of head injury sufficient to cause loss of consciousness, fracture of the spinal column, meningitis or encephalitis. Neurologic examination on September 18, 2024 revealed an awake, alert, pleasant, cooperative and coherent woman. Stance was normal and there was no rombergism. Gait including tandem walk was performed well as were the rapid alternating movements of the tongue fingers and toes as well as [id number] testing. Cranial Nerves: II-visual calzada full III IV -extraocular movements normal VII-muscles of facial expression normal in power bilaterally XII-tongue midline Motor System: Strength in the deltoids, biceps, triceps, wrist extensors, finger extensors, interossei, iliopsoas, quadriceps, hamstrings, anterior tibialis and toe extensors was normal. There was no significant tendon reflex asymmetry and no Babinski response. Sensory System: Joint position and vibration sensation were intact. Other Observations: The Quix maneuver and Past-Pointing test were positive to her right. The H I T maneuver was compatible with a peripheral localization of vestibular system dysfunction. In summary, the history and examination would be most compatible with vertigo secondary to right-sided vestibular system dysfunction this most likely peripheral in localization. The findings would be compatible with M ni re's disease. After further consideration we will refer her for vestibular physical therapy and in addition lest she be evolving an underlying rheumatologic condition we have ordered laboratory studies to consist of a CBC with differential, comprehensive metabolic panel, TSH, erythrocyte sedimentation rate, C-reactive protein, rheumatoid factor, VALDEMAR panel, angiotensin-converting enzyme and ANCA antibody. 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 She is to keep us advised as to her status and contact us for the results of her studies although alternatively she may access these via [employer]. A follow-up visit has been scheduled. documented in this encounter [facility] 08-18-2024 History of Presen t illness Narrative Subjective Patient ID: Tanja Soto is a 39 y.o. female who presents for Hearing Loss (6 month follow up audio 08/14/24) Audio shows no sig change. Slightly better on right, though she perceives the left is better. Overall hearing is normal. Pt saw a Chiari malformation specialist who eren it was borderline. Referred pt to a general neurologist for her DOSS. Family History Problem Relation Name Age of Onset Arthritis Mother Jazmine Anesthesia problems Mother Jazmine Hypertension Father Bryant Thyroid disease Sister Cancer Paternal Grandmother Mary Active Ambulatory Problems Diagnosis Date Noted Impingement syndrome of right shoulder 12/07/2022 Cervical radiculopathy 12/07/2022 PCOS (polycystic ovarian syndrome) 01/26/2024 Abnormal weight gain 01/26/2024 Acute otitis media with effusion of left ear 01/26/2024 Adult ADHD (CMS/HCC) 01/26/2024 Contracture, right ankle 01/26/2024 Dysfunctional uterine bleeding 01/26/2024 Meniere's disease of right ear 02/14/2024 Resolved Ambulatory Problems Diagnosis Date Noted No Resolved Ambulatory Problems Past Medical History: Diagnosis Date Dizziness 11/2023 Ear problems 11/2023 GERD (gastroesophageal reflux disease) 2006 Headache Regularly Infertility associated with anovulation Migraine 2008 Rotator cuff syndrome August 1999 Past Surgical History: Procedure Laterality Date ADENOIDECTOMY 1994 APPENDECTOMY 2008 SECTION, LOW TRANSVERSE 2013 LAPAROSCOPY ABDOMEN DIAGNOSTIC 2012 ROTATOR CUFF REPAIR 1999 SHOULDER SURGERY 2009 right shoulder scar tissue surgery TONSILLECTOMY 1994 Allergies Allergen Reactions Cimetidine Anaphylaxis Wound Dressing Adhesive Rash Levofloxacin Latex Itching, Other and Rash Current Outpatient Medications on File Prior to Visit Medication Sig Dispense Refill fluticasone (Flonase) 50 MCG/ACT nasal spray Administer 2 sprays into each nostril Daily ibuprofen 200 MG tablet Take by mouth Multiple Vitamin (Multivitamin Adult) tablet 1 (one) time each day at the same time valsartan (Diovan) 40 MG tablet No current facility-administered medications on file prior to visit. Objective Last Recorded Vitals Vitals: 08/18/24 1537 BP: 132/81 Pulse: 93 ENT Physical Exam Constitutional Appearance: patient appears well-developed, well-nourished and well-groomed, Communication/Voice: communication appropriate for developmental age; vocal quality normal; Assessment/Plan Diagnoses and all orders for this visit: Meniere's disease of right ear Well controlled without meds. F/U prn documented in this encounter [facility] 08-14-2024 History of Presen t illness Narrative History: Pt is here for 6 month recheck. Last audio on February 11, 2024 revealed bilateral selena hearing. Pt has diagnosis of Meniere's disease of right ear. Pt still has difficulty hearing when the sound is on her right side. Otoscopic Exam: Ear canal clear and TM intact AU Pure Tone Audiometry Right Ear: Normal hearing Left Ear: Normal hearing Speech Audiometry Right SRT = 5 dB and word discrimination score at 50 dBHL = 100% Left SRT = 5 dB and word discrimination score at 50 dBHL = 100% Tympanometry Right Ear: Type A tympanogram Left Ear: Type A tympanogram documented in this encounter [facility] 08-01-2024 History of Presen t illness Narrative Images from the original note were not included. OUTPATIENT ADULT NEUROSURGICAL CONSULTATION Dear Dr Rosenbaum primary care provider on file.: Thank you for your kind referral of Tanja Soto for consultation. Tanja Soto was evaluated in the adult neurosurgery clinic on 08/01/2024 for the problem of chiari. Although her history is well known to you, please allow me to reiterate it for the purpose of my medical record. Informant: History obtained from patient. Chief Complaint: headaches, dizziness, other symptoms. History of Present Illness: Tanja Soto is a 39 year old female with a hx of R rotator cuff tear s/p repair, meniere's disease, PCOS, ADHD, HTN, and cervical ddd who presents today for a new patient evaluation of chiari. In 04/2023 she had neck pain and RUE pain so had a mri showing cervical DDD. Was recommended PT but this made it worse so then saw pain management whom recommended injections but she did not wish to pursue this. RUE pains have improved but still has ongoing neck pain and R shoulder stiffness. In 11/2023 she had presented with ear pain (R>L) so went to urgent care whom felt it may be the beginning of an ear infection. Then later in 11/2023 she had an episode of vertigo which prompted an ED visit which noted fluid in her ears and started her on abx. This did not help with the ear pain. Vertigo lasted about 3 days and then improved but did have ongoing ear pain. Was then referred ENT whom dx her with menier's disease. Started her on meclizine and did a hearing test. Since then she has had ongoing intermittent episode of dizziness. Gets random episodes of lightheadedness and imbalance. Can also occur with positional changes. Dizziness has not been bad enough to attempt the meclizine. She notes the dizziness seems to be daily, but when she notices the dizziness she will sit down or change position this will stop the dizziness. Then in 05/2024 she started to develop new symptoms. She denies any inciting events. Though she notes starting back in winter of 2021 she maybe has had symptoms. She notes she may have been due to mold exposure from work at that time. She also notes she has had high levels of stress since they adopted 2 children in 09/2021. When they cleared out the mold she did not have any clear improvement in symptoms. Did not have this worked up at that time. Headaches, difficulties with swallowing, ongoing ear pain, body temp regulation issues. Due to this ENT ordered brain mri reporting chiari. She has had headaches most of life but not as bad as now. She notes occipital headaches. Aching and throbbing pains. Can radiate toward the eyes and temples. Can be triggered by laying on the back of her head and keeping her hair tied in a tight pony tail. She is getting headaches daily. She notes headaches improve with sleep. She has taken tylenol without much help so she does not take much in the way of meds now. Has not been put on rx meds for headaches yet. Headaches last 1-4 hours. Headaches seem to be worse with bright lights and physical activity, standing for a long time. She notes issues with swallowing starting around Apr 2024. Difficulties with swallowing her vitamins. Feels like it is getting caught. Also having issues with swallowing dryer foods. No regular issues with liquids. Has not had a swallow study. Still having ongoing intermittent episodes of shooting pain in the R ear. Seems to be random. Also getting tinnitus in b/l ears. She notes feeling her hands and feet will feel constantly cold. Hard to keep them warm enough unless she takes a warm shower. Has had this issue in childhood but worse more recently. She notes FH of raynaud's disease. Has had rheum in the past and was dx with hypermobile EDS but has not had genetic testing. She denies headaches are exacerbated by valsalva but valsalva can trigger the lightheadedness. She acknowledges her vision has gotten worse over the past 1.5 years. Follows annualy with an eye doctor. Last summer noticed worsening R eye refraction. Needed stronger rx. She has her eyes dilated and no papilledema. She notes she will wake up with LUE numbness/burning frequently though does sleep more on the L side. Gets some b/l LE numbness as well when sleeping or working/standing/sitting for a a time. Some mild gait imbalance intermittently. She deny any UE or LE pain/paresthesias/weakness, bowel/bladder dysfunction, loss of pain/temperature sensation. PAST HISTORY: No past medical history on file. No past surgical history on file. R rotator cuff repair T&A Appendectomy Ex-lap C/s Family History: No family history on file. Social History: Current Outpatient Medications Medication Sig valsartan (DIOVAN) 40 mg tablet amoxicillin-clavulanate potassium (AUGMENTIN) 875-125 mg per tablet mv-mn/iron fum/FA/omega3,6,9#3 (WOMEN'S MULTI ORAL) Take by mouth. meclizine (ANTIVERT) 25 mg tab Take 25 mg by mouth as needed. No current facility-administered medications for this visit. Allergies: ALLERGIES Allergen Reactions Cimetidine Anaphylaxis Adhesive Tape-Silic* Rash Levofloxacin Vomiting Latex Itching, Other: See Comments, Rash PHYSICAL EXAM: BP 119/86 Pulse 83 Temp 36.6 C (97.8 F) Resp 20 Ht 157.5 cm (5' 2 ) Wt 78.1 kg (172 lb 2.9 oz) LMP 07/01/2024 (Approximate) SpO2 98% BMI 31.49 kg/m General: well-appearing and undistressed woman. She is non-dysmorphic Head: normocephalic,atraumatic Eyes: Eyes are symmetrical and gaze is conjugate Neck: Supple; good ROM. Musculoskeletal: Muscle tone normal in all four limbs without atrophy. Muscle strength 5/5 in both upper and lower extremities Mental status is normal. Neurological: Higher integrative functions: oriented to person, place and time 2nd cranial nerve: full visual calzada 3rd, 4th and 6th cranial nerves: PERRL, full extraocular movements 5th cranial nerve: no decrease in facial sensation 7th cranial nerve: facial muscles symmetric and strong 8th cranial nerve: hears finger rub well bilaterally 9th and 10th cranial nerves: spontaneous palate movement, full and symmetric 11th cranial nerve: full strength in shoulder shrug 12th cranial nerve: tongue protrusion full and midline Myotactic reflexes: 2+ and symmetrical, Patellar Coordination: Rapid-alternating movements fast and smooth in all limbs. No dysdiadochokinesis. Gait: Normal Romberg: Negative Sensory examination is grossly intact to light touch Tony Wallace PA-C MEDICAL DECISION MAKING DATA REVIEW: Excerpt from MRI Brain 06/20/24 [facility] Outside Information MR brain w and wo contrast IACs Anatomical Region Laterality Modality Brain -- Magnetic Resonance Narrative TITLE OF EXAM: MR BRAIN W AND WO CONTRAST (IACS) REASON FOR EXAM: History of Meniere's disease, persistent issues with right eye and right ear, no trauma TECHNIQUE: Multisequence, multiplanar MRI of the brain and IACs prior to and following the intravenous administration of 7.5 cc Vueway COMPARISON: None. FINDINGS: Cerebellopontine angles and temporal bones: No mass or abnormal enhancement in the cerebellopontine angles or internal auditory canals. The vestibules, cochlea, and semicircular canals demonstrate normal morphology, size, and signal. No significant fluid in the tympanic cavities. Normal evaluable trigeminal nerves. Left type II AICA loop. Brain and other intracranial structures: Borderline Chiari I malformation with crowding of structures at the foramen magnum. The obex is superior of the foramen. Otherwise, the ventricles and extra-axial spaces are normal. There are no intraparenchymal signal abnormalities. No hydrocephalus. Tony Wallace PA-C IMPRESSION In summary, Tanja Soto is a 39 year old female with a hx of R rotator cuff tear s/p repair, meniere's disease, PCOS, ADHD, HTN, and cervical ddd who presents today for a new patient evaluation of chiari. She had issues with ear pain and vertigo in 11/2023 and since then has had ongoing dizziness episodes and more recently has had other worsening symptoms (headaches, coldness in her extremities, swallowing issues). We reviewed her mri which shows a stable very minimal cerebellar ectopia without compression and with good CSF spaces. In the midline view there is actually no cerebellar ectopia, just very minimal ectopia of the R tonsil of about 3mm but still with good CSF spaces. No cervical syrinx. I discussed with Tanja that I think it is unlikely that this minimal ectopia is a significant contributor to her symptoms and I would not recommend any neurosurgical intervention at this time. I would recommend to see general neurology. I would be happy to see her back as needed. RECOMMENDATIONS The above was extensively discussed with the patient. Based on our findings, I would recommend to see general neurology.. I would like to see Tanja Soto back in clinic for a follow up visit and repeat assesment in as needed time. TREATMENT OPTIONS & RISKS: I have discussed the management options and there respective risks and benefits with the patient. I spent a total of 60 minutes on the date of the service which included preparing to see the patient, [id number] patient care, completing clinical documentation, obtaining and/or reviewing separately obtained history, performing a medically appropriate examination, counseling and educating the patient/family/caregiver, independently interpreting results (not separately reported), and communicating results to the patient/family/caregiver. Thank you for the opportunity to participate in Tanja Soto's care. If I can answer any additional questions, I would be pleased to do so. Sincerely, Tony Wallace PA-C Supervising Physician: Dr. Pankaj Alberts Date: 08/01/2024 CC: These final recommendations will be communicated back to the requesting physician/primary care physician by way of shared medical record documented in this encounter [facility] 08-01-2024 Note HNO ID: [id number] Author: TONY WALLACE PA-C Service: ? Author Type: Physician [employer] Type: Progress Notes Filed: 08/01/2024 11:33 Note Text: OUTPATIENT ADULT NEUROSURGICAL CONSULTATION Dear Dr Rosenbaum primary care provider on file.: Thank you for your kind referral of Tanja Soto for consultation. Tanja Soto was evaluated in the adult neurosurgery clinic on 08/01/2024 for the problem of chiari. Although her history is well known to you, please allow me to reiterate it for the purpose of my medical record. Informant: History obtained from patient. Chief Complaint: headaches, dizziness, other symptoms. History of Present Illness: Tanja Soto is a 39 year old female with a hx of R rotator cuff tear s/p repair, meniere's disease, PCOS, ADHD, HTN, and cervical ddd who presents today for a new patient evaluation of chiari. In 04/2023 she had neck pain and RUE pain so had a mri showing cervical DDD. Was recommended PT but this made it worse so then saw pain management whom recommended injections but she did not wish to pursue this. RUE pains have improved but still has ongoing neck pain and R shoulder stiffness. In 11/2023 she had presented with ear pain (R>L) so went to urgent care whom felt it may be the beginning of an ear infection. Then later in 11/2023 she had an episode of vertigo which prompted an ED visit which noted fluid in her ears and started her on abx. This did not help with the ear pain. Vertigo lasted about 3 days and then improved but did have ongoing ear pain. Was then referred ENT whom dx her with menier's disease. Started her on meclizine and did a hearing test. Since then she has had ongoing intermittent episode of dizziness. Gets random episodes of lightheadedness and imbalance. Can also occur with positional changes. Dizziness has not been bad enough to attempt the meclizine. She notes the dizziness seems to be daily, but when she notices the dizziness she will sit down or change position this will stop the dizziness. Then in 05/2024 she started to develop new symptoms. She denies any inciting events. Though she notes starting back in winter of 2021 she maybe has had symptoms. She notes she may have been due to mold exposure from work at that time. She also notes she has had high levels of stress since they adopted 2 children in 09/2021. When they cleared out the mold she did not have any clear improvement in symptoms. Did not have this worked up at that time. Headaches, difficulties with swallowing, ongoing ear pain, body temp regulation issues. Due to this ENT ordered brain mri reporting chiari. She has had headaches most of life but not as bad as now. She notes occipital headaches. Aching and throbbing pains. Can radiate toward the eyes and temples. Can be triggered by laying on the back of her head and keeping her hair tied in a tight pony tail. She is getting headaches daily. She notes headaches improve with sleep. She has taken tylenol without much help so she does not take much in the way of meds now. Has not been put on rx meds for headaches yet. Headaches last 1-4 hours. Headaches seem to be worse with bright lights and physical activity, standing for a long time. She notes issues with swallowing starting around Apr 2024. Difficulties with swallowing her vitamins. Feels like it is getting caught. Also having issues with swallowing dryer foods. No regular issues with liquids. Has not had a swallow study. Still having ongoing intermittent episodes of shooting pain in the R ear. Seems to be random. Also getting tinnitus in b/l ears. She notes feeling her hands and feet will feel constantly cold. Hard to keep them warm enough unless she takes a warm shower. Has had this issue in childhood but worse more recently. She notes FH of raynaud's disease. Has had rheum in the past and was dx with hypermobile EDS but has not had genetic testing. She denies headaches are exacerbated by valsalva but valsalva can trigger the lightheadedness. She acknowledges her vision has gotten worse over the past 1.5 years. Follows annualy with an eye doctor. Last summer noticed worsening R eye refraction. Needed stronger rx. She has her eyes dilated and no papilledema. She notes she will wake up with LUE numbness/burning frequently though does sleep more on the L side. Gets some b/l LE numbness as well when sleeping or working/standing/sitting for a a time. Some mild gait imbalance intermittently. She deny any UE or LE pain/paresthesias/weakness, bowel/bladder dysfunction, loss of pain/temperature sensation. PAST HISTORY: No past medical history on file. No past surgical history on file. R rotator cuff repair TANDA Appendectomy Ex-lap C/s Family History: No family history on file. Social History: Current Outpatient Medications Medication Sig valsartan (DIOVAN) 40 mg tablet amoxicillin-clavulanate potassium (AUGMENTIN) 875-125 mg per tab (more content not included)... [facility] 02-20-2025 Evaluation note Diagnosis Onset Date Resolution Dysfunctional uterine bleeding acute June 08 025 2:21pm Addis-Danlos syndrome acute Fe 2024 2:21pm Elevated blood-pressure reading, without diagnosis of hypertension acute June 08 025 2:21pm PCOS (polycystic ovarian syndrome) acute June 08 2:21pm Postural orthostatic tachycardia syndrome [POTS] acute June 08 2:21pm [facility] Work Phone: [phone]) 817-741502-17-2025 History of Present illness Narrative* Abdirashid Hugo MD - 06/05/2024 9:10 AM EST Subjective Patient ID: Tanja Soto is a 39 y.o. female who presents for trouble swallowing Pt reports since last seen she has been having increased difficulty with dysphagia. Needs heavy condiments or liquids. Also feels hearing decreased on the right and having increased headaches. Pt hasa DOSS 50% of the time . Now also notes decreased vision on the right. Also has right tinnitus. Family History Problem Relation Name Age of Onset Arthritis Mother Jazmine Anesthesia problems Mother Jazmine Hypertension Father Bryant Thyroid disease Sister Cancer Paternal Grandmother Mary Active Ambulatory Problems Diagnosis Date Noted Impingement syndrome of right shoulder 12/07/2022 Cervical radiculopathy 12/07/2022 PCOS (polycystic ovarian syndrome) 01/26/2024 Abnormal weight gain 01/26/2024 Acute otitis media with effusion of left ear 01/26/2024 Adult ADHD (CMS/HCC) 01/26/2024 Contracture, right ankle 01/26/2024 Dysfunctional uterine bleeding 01/26/2024 Meniere's disease of right ear 02/14/2024 Resolved Ambulatory Problems Diagnosis Date Noted No Resolved Ambulatory Problems Past Medical History: Diagnosis Date Dizziness 11/2023 Ear problems 11/2023 GERD (gastroesophageal reflux disease) 2006 Headache Regularly Infertility associated with anovulation Migraine (CMS/HCC) 2007 Rotator cuff syndrome August 1999 Past Surgical History: Procedure Laterality Date ADENOIDECTOMY 1995 APPENDECTOMY 2009 SECTION, LOW TRANSVERSE 2013 LAPAROSCOPY ABDOMEN DIAGNOSTIC 2012 ROTATOR CUFF REPAIR 1999 SHOULDER SURGERY 2009 right shoulder scar tissue surgery TONSILLECTOMY 1994 Allergies Allergen Reactions Cimetidine Anaphylaxis Wound Dressing Adhesive Rash Levofloxacin Latex Itching, Other and Rash Current Outpatient Medications on File Prior to Visit Medication Sig Dispense Refill fluticasone (Flonase) 50 MCG/ACT nasal spray Administer 2 sprays into each nostril Daily ibuprofen 200 MG tablet Take by mouth Multiple Vitamin (Multivitamin Adult) tablet 1 (one) time each day at the same time. valsartan (Diovan) 40 MG tablet No current facility-administered medications on file prior to visit. Objective Last Recorded Vitals Vitals: 06/05/24 0910 BP: 136/86 Pulse: 84 ENT Physical Exam Constitutional Appearance: patient appears well-developed, well-nourished and well-groomed, Communication/Voice: communication appropriate for developmental age; vocal quality normal; Ear Hearing: intact; Auricles: right auricle normal; left auricle normal; External Mastoids: right external mastoid normal; left external mastoid normal; Ear Canals: right ear canal normal; left ear canal normal; Tympanic Membranes: right tympanic membrane normal; left tympanic membrane normal; Nose External Nose: nares patent bilaterally; external nose normal; Internal Nose: nasal mucosa normal; septum normal; bilateral inferior turbinates normal; Oral Cavity/Oropharynx Lips: normal; Teeth: normal; Gums: gingiva normal; Tongue: normal; Oral mucosa: normal; Hard palate: normal; Assessment/Plan Diagnoses and all orders for this visit: Asymmetric SNHL (sensorineural hearing loss) Right-sided tinnitus Chronic nonintractable headache, unspecified headache type Vision changes Pt's constellation of sx is worsening. As could be due to an AN I will proceed with an MRI IAC. I also recommend referral to an opthomologist to evaluate pt's vision change. The MRI will also allow and excellent eval of the sinuses, which could also cause chronic headache. documented in this encounterEllis Fischel Cancer [id number] Telephone encounter Note* Telephone Encounter - Riya Hugo - 05/29/2024 10:44 AM EST Left a message for pt to call Dr Hugo's office to schedule an appt. [facility] Cancer [id number] Miscellaneous Notes* Telephone Encounter - Riya Hugo - 05/29/2024 10:44 AM EST Left a message for pt to call Dr Hugo's office to schedule an appt. * Telephone Encounter - Abdirashid Hugo MD - 05/29/2024 10:32 AM EST OK to move up appt without audio * Telephone Encounter - Riya Hugo - 05/29/2024 10:05 AM EST Pt is scheduled for audio 08/14/[address] Hugo appt 08/18/24. She is now having headaches over 50percent of the day almost every day and difficulty swallowing. Her eye sight has slowly been getting worse over the past couple of years. She forgot to mention that the last time she was here. Shouldshe come in and been seen sooner? documented in this encounterNOResearch Medical [id number] Telephone encounter Note* Telephone Encounter - Abdirashid Hugo MD - 05/29/2024 10:32 AM EST OK to move up appt without audio [facility] [id number] Telephone encounter Note* Telephone Encounter - Riya Hugo - 05/29/2024 10:05 AM EST Pt is scheduled for audio 08/14/[address] Hugo appt 08/18/24. She is now having headaches over 50percent of the day almost every day and difficulty swallowing. Her eye sight has slowly been getting worse over the past couple of years. She forgot to mention that the last time she was here. Shouldshe come in and been seen sooner? [id number] Evaluation note* Diagnosis Onset Date Resolution Status Admit Date Dysfunctional uterine bleeding acute March 28, 2024 3:07pm Addis-Danlos syndrome acute De cember 2023 3:07pm Elevated blood-pressure reading, without diagnosis of hypertension acute March 28, 2 024 3:07pm PCOS (polycystic ovarian syndrome) acute March 28, 2 024 3:07pm Postural orthostatic tachycardia syndrome [POTS] acute Dece mber 2023 3:07pm Dysfunctional uterine bleeding acute June 08, 2024 2:21pm Addis-Danlos syndrome acute Fe bruary 2024 2:21pm Elevated blood-pressure reading, without diagnosis of hypertension acute June 08, 2 025 2:21pm PCOS (polycystic ovarian syndrome) acute June 08, 2 025 2:21pm Postural orthostatic tachycardia syndrome [POTS] acute Febr uary 2024 2:21pm [facility] Work Phone: 1(745) 217-675910-28-2024 History of Present illness Narrative* Abdirashid Hugo MD - 02/14/2024 3:40 PM EDT Subjective Patient ID: Tanja Soto is a 38 y.o. female who presents for Meniere's Disease (Follow up audio02/11/24)that is slightly better No vertigo since last seen. Audio shows overall normal hearing that is slightly better on the left at low tones and better on the right (5db) at mid and high tones. Beck tymps normal. Beck disc 100%. Family History Problem Relation Name Age of Onset Arthritis Mother Jazmine Anesthesia problems Mother Jazmine Hypertension Father Bryant Thyroid disease Sister Cancer Paternal Grandmother Mary Active Ambulatory Problems Diagnosis Date Noted Impingement syndrome of right shoulder 12/07/2022 Cervical radiculopathy 12/07/2022 PCOS (polycystic ovarian syndrome) 01/26/2024 Abnormal weight gain 01/26/2024 Acute otitis media with effusion of left ear 01/26/2024 Adult ADHD (CMS/HCC) 01/26/2024 Contracture, right ankle 01/26/2024 Dysfunctional uterine bleeding 01/26/2024 Resolved Ambulatory Problems Diagnosis Date Noted No Resolved Ambulatory Problems Past Medical History: Diagnosis Date Dizziness 11/2023 Ear problems 11/2023 GERD (gastroesophageal reflux disease) 2006 Headache Regularly Infertility associated with anovulation Migraine ([facility] 2007 Rotator cuff syndrome August 1999 Past Surgical History: Procedure Laterality Date ADENOIDECTOMY 1994 APPENDECTOMY 2008 SECTION, LOW TRANSVERSE 2014 LAPAROSCOPY ABDOMEN DIAGNOSTIC 2012 ROTATOR CUFF REPAIR 2000 SHOULDER SURGERY 2009 right shoulder scar tissue surgery TONSILLECTOMY 1994 Allergies Allergen Reactions Cimetidine Anaphylaxis Wound Dressing Adhesive Rash Levofloxacin Latex Itching, Other and Rash Current Outpatient Medications on File Prior to Visit Medication Sig Dispense Refill fluticasone (Flonase) 50 MCG/ACT nasal spray Administer 2 sprays into each nostril Daily ibuprofen 200 MG tablet Take by mouth meclizine (Antivert) 25 MG tablet Take 1 tablet (25 mg) by mouth 3 (three) times a day as needed for dizziness for up to 10 days 30 tablet 2 Multiple Vitamin (Multivitamin Adult) tablet 1 (one) time each day at the same time. No current facility-administered medications on file prior to visit. Objective Last Recorded Vitals Vitals: 02/14/24 1542 BP: (!) 139/100 ENT Physical Exam Constitutional Appearance: patient appears well-developed, well-nourished and well-groomed, Communication/Voice: communication appropriate for developmental age; vocal quality normal; Assessment/Plan Diagnoses and all orders for this visit: Meniere's disease of right ear Minimal asymmetry on audio. Repeat in 6 mo and get an MRI if change noted. Start watching sodium. Hold aggressive low sodium diet and dyazide unless vertigo develops documented in this encounterEllis Fischel Cancer [id number] History of Present illness Narrative* Aylin Wilder, CCC-A - 02/11/2024 2:45 PM EDT History: Pt saw Dr. Hugo 02/04/24. Pt developed right aural fullness in early November. No pain or hearing loss. Pt also had vertigo for 1 week in November. She still has occasional disequilibrium. Pt also reports periodic tinnitus in both ears, more often in the right ear. Otoscopic Exam: Ear canal clear and TM intact AU Pure Tone Audiometry Right Ear: Normal hearing Left Ear: Normal hearing Speech Audiometry Right SRT = 5 dB and word discrimination score at 50 dBHL = 100% Left SRT = 10 dB and word discrimination score at 50 dBHL = 100% Tympanometry Right Ear: Type A tympanogram Left Ear: Type A tympanogram documented in this encounterEllis Fischel Cancer [id number] History of Present illness Narrative* Abdirashid Hugo MD - 02/04/2024 3:00 PM EDT Subjective Patient ID: Tanja Soto is a 38 y.o. female who presents for Otitis Media Pt states in early November she developed right ear fullness. No pain or hearing loss. [facility]. Tx with steroids, decongestants and a steroid spray. Sx improved one week, and then developed vertigo. Vertigo lasted a week. Still has some occas dysequilibrium. Seen at the ED 12/[address] head obtained. CT reviewed and there was no ME or mastoid fluid on either side. Review of Systems All other systems reviewed and are negative. Family History Problem Relation Name Age of Onset Arthritis Mother Jazmine Anesthesia problems Mother Jazmine Hypertension Father Bryant Thyroid disease Sister Cancer Paternal Grandmother Mary Active Ambulatory Problems Diagnosis Date Noted Impingement syndrome of right shoulder 12/07/2022 Cervical radiculopathy 12/07/2022 PCOS (polycystic ovarian syndrome) 01/26/2024 Abnormal weight gain 01/26/2024 Acute otitis media with effusion of left ear 01/26/2024 Adult ADHD (CMS/HCC) 01/26/2024 Contracture, right ankle 01/26/2024 Dysfunctional uterine bleeding 01/26/2024 Resolved Ambulatory Problems Diagnosis Date Noted No Resolved Ambulatory Problems Past Medical History: Diagnosis Date Dizziness 11/2023 Ear problems 11/2023 GERD (gastroesophageal reflux disease) 2006 Headache Regularly Infertility associated with anovulation Migraine (CMS/HCC) 2007 Rotator cuff syndrome August 1999 Past Surgical History: Procedure Laterality Date ADENOIDECTOMY 1995 APPENDECTOMY 2009 SECTION, LOW TRANSVERSE 2014 LAPAROSCOPY ABDOMEN DIAGNOSTIC 2012 ROTATOR CUFF REPAIR 1999 SHOULDER SURGERY 2009 right shoulder scar tissue surgery TONSILLECTOMY 1994 Allergies Allergen Reactions Cimetidine Anaphylaxis Wound Dressing Adhesive Rash Levofloxacin Latex Itching, Other and Rash Current Outpatient Medications on File Prior to Visit Medication Sig Dispense Refill fluticasone (Flonase) 50 MCG/ACT nasal spray Administer 2 sprays into each nostril Daily ibuprofen 200 MG tablet Take by mouth meclizine (Antivert) 25 MG tablet Take 25 mg by mouth 3 (three) times a day as needed Multiple Vitamin (Multivitamin Adult) tablet 1 (one) time each day at the same time. No current facility-administered medications on file prior to visit. Objective Last Recorded Vitals Vitals: 02/04/24 1514 BP: (!) 151/95 ENT Physical Exam Constitutional Appearance: patient appears well-developed, well-nourished and well-groomed, Head and Face Appearance: head appears normal and face appears atraumatic; Palpation: TMJ comments: Marked TMJ crepitus Ear Ear Canals: right ear canal normal; left ear canal normal; Tympanic Membranes: right tympanic membrane normal; left tympanic membrane normal; Ear comments: Garcia lat to left. Beck Rinne A>B Nose External Nose: nares patent bilaterally; external nose normal; Internal Nose: septum normal; Oral Cavity/Oropharynx Tongue: normal; Oral mucosa: normal; Hard palate: normal; Soft palate: normal; Tonsils: normal; Neck Neck: neck normal; neck palpation normal; Thyroid: thyroid normal; Respiratory Inspection: breathing unlabored; normal breathing rate; Auscultation: breath sounds are clear; Cardiovascular Inspection: extremities are warm and well perfused; no peripheral edema present; Auscultation: regular rate and rhythm; Assessment/Plan Diagnoses and all orders for this visit: Meniere's disease of right ear Pt's constellation of sx is most c/w Right Meniere's. She clearly did not have OPME as no effusion evident on her CT. I will check an audio and see Tanja back to determine whether an MRI is needed.At this point the only sig sx is ild RT ear fullness so I will hold off on tx unless vertigo becomes recurrent. Will give meclizine in case recurs documented in this encounterEllis Fischel Cancer [id number] Hospital Discharge instructionsAmbulatory Orders* Referral to ENT Time Frame: 01/11/24, Location: [facility] Work Phone: [phone]) 459-780306-15-2023 Evaluation note* Encounter Date Diagnosis Assessment Notes Treatment Notes Treatment Clinical Notes Sep, Bug bite with infection, initial encounter (ICD-10 - W57.XXXA) Discussed symptoms, meds and cool compresses for relief. [facility] [employer] Other Chial complaint+Reason for visit Narrative* Chief Complaint G90.A G90.A 6 Weeks Ear pain Referral Dr. Gigi Martinez Reason for Visit Dysfunctional uterin e bleeding Addis-Danlos syndrome Elevated blood-pressure reading, without diagnosis of hypertension PCOS (polycystic ovarian syndrome) Postural orthostatic tachycardia syndrome [POTS] Bilateral serous otitis media [facility] Work Phone: Chihv complaint+Reason for visit Narrative* Chief Complaint Ear pain Referral Dr. Gigi Martinez Vertigo Reason for Visit Bilateral serous brianna tis media Abnormal weight gain Obesity, Class I, BMI 30-34.9 Other fatigue PCOS (polycystic ovarian syndrome) Postural orthostatic tachycardia syndrome [POTS] [facility] Work Phone: Chilb complaint+Reason for visit Narrative* Chief Complaint Ear pain Referral Dr. Gigi Martinez Vertigo Reason for Visit Bilateral serous brianna tis media Abnormal weight gain Obesity, Class I, BMI 30-34.9 Other fatigue PCOS (polycystic ovarian syndrome) Postural orthostatic tachycardia syndrome [POTS] Acute otitis media with effusion of left ear [facility] Work Phone: Evaluation + Plan note Future Appointments Appointment Date:02/03/2022 02:00:00 PM Scheduled Provider: Location:.[facility] Appointment Type:US Abdominal/Pelvis (FT) Future Scheduled Tests Radiology* US Pelvis Non-OB Complete 02/03/22 * US Transvaginal Non-OB 02/03/22 [facility] noteNo InformationNortH[facility] [employer] Other Evaluation note* Diagnosis Onset Date Resolution Status Adult ADHD acute Postural orthostatic tachycardia syndrome [POTS] acute [facility] Work Phone: Evaluation note* Diagnosis Onset Date Resolution Status Adult ADHD acute Postural orthostatic tachycardia syndrome [POTS] acute Acute effusion of both middle ears noneactive [facility] Work Phone: Evaluation note* Diagnosis Onset Date Resolution Status Adult ADHD acute Postural orthostatic tachycardia syndrome [POTS] acute Acute effusion of both middle ears noneactive Dysfunctional uterine bleeding acute Addis-Danlos syndrome acute Elevated blood-pressure read ing, without diagnosis of hypertension acute PCOS (polycystic ovarian syndrome) acute Postural orthostatic tachycardia syndrome [POTS] acute [facility] Work Phone: Evaluation note* Diagnosis Onset Date Resolution Status Acute effusion of both middle ears noneactive Dysfunctional uterine bleeding acute Addis-Danlos syndrome acute Elevated blood-pressure read ing, without diagnosis of hypertension acute PCOS (polycystic ovarian syndrome) acute Postural orthostatic tachycardia syndrome [POTS] acute Dysfunctional uterine bleeding acute Addis-Danlos syndrome acute Elevated blood-pressure read ing, without diagnosis of hypertension acute PCOS (polycystic ovarian syndrome) acute Postural orthostatic tachycardia syndrome [POTS] acute [facility] Work Phone: evaluation note* Diagnosis Onset Date Resolution Status Dysfunctional uterine bleeding acute Addis-Danlos syndrome acute Elevated blood-pressure read ing, without diagnosis of hypertension acute PCOS (polycystic ovarian syndrome) acute Postural orthostatic tachycardia syndrome [POTS] acute [facility] Work Phone: evaluation note* Diagnosis Onset Date Resolution Status Dysfunctional uterine bleeding acute Addis-Danlos syndrome acute Elevated blood-pressure read ing, without diagnosis of hypertension acute PCOS (polycystic ovarian syndrome) acute Postural orthostatic tachycardia syndrome [POTS] acute Bilateral serous otitis media acute [facility] Work Phone: Evaluation note* Diagnosis Onset Date Resolution Status Bilateral serous otitis media acute Abnormal weight gain acute Obesity, Class I, BMI 30-34.9 acute Other fatigue acute PCOS (polycystic ovarian syndrome) acute Postural orthostatic tachycardia syndrome [POTS] acute [facility] Work Phone: evaluation note* Diagnosis Onset Date Resolution Status Bilateral serous otitis media acute Abnormal weight gain acute Obesity, Class I, BMI 30-34.9 acute Other fatigue acute PCOS (polycystic ovarian syndrome) acute Postural orthostatic tachycardia syndrome [POTS] acute Acute otitis media with effusion of left ear acute [facility] Work Phone: Evaluation note* Diagnosis Meniere's disease of right ear- Primary [facility]* Diagnosis Meniere disease of right ear- Primary Ear fullness, right documented in this encounter [facility] CenterEvaluation note* Diagnosis Asymmetric SNHL (sensorineural hearing loss)- Primary Sensorineural hearing loss, asymmetrical Right-sided tinnitus Unspecified tinnitus Chronic nonintractable headache, unspecified headache type Vision changes documented in this encounter [facility] CenterEvaluation note* Diagnosis Cerebellar tonsillar ectopia (HCC)- Primary Other specified congenital anomalies of brain Nonintractable headache, unspecified chronicity pattern, unspecified headache type Dizzy Dizziness and giddiness documented in this encounter [facility]* Diagnosis Meniere's disease of right ear- Primary documented in this encounter [facility]Evaluation note* Diagnosis Vertigo- Primary Dizziness and giddiness Dizzy Dizziness and giddiness Chronic daily headache Headache Globus sensation Gastrointestinal malfunction arising from mental factors Numbness and tingling Disturbance of skin sensation documented in this encounter [facility]* Diagnosis Cervicalgia- Primary Dizzy Dizziness and giddiness Vertigo Dizziness and giddiness Balance problem Other symptoms involving nervous and musculoskeletal systems documented in this encounter [facility]* Diagnosis Vertigo- Primary Dizziness and giddiness documented in this encounter [facility]* Diagnosis Dizzy- Primary Dizziness and giddiness Cervicalgia Balance problem Other symptoms involving nervous and musculoskeletal systems documented in this encounter [facility]* Diagnosis Dizzy- Primary Dizziness and giddiness Cervicalgia Balance problem Other symptoms involving nervous and musculoskeletal systems documented in this encounter [facility]* Diagnosis Ehler's-Danlos syndrome (HCC)- Primary documented in this encounter [facility]* Diagnosis Onset Date Resolution Status Admit Date Dysfunctional uterine bleeding acute November 29, 2024 2:10pm Addis-Danlos syndrome acute [facility] 2024 2:10pm Elevated blood-pressure read ing, without diagnosis of hypertension acute November 29 2:10pm PCOS (polycystic ovarian syndrome) acute November 29 2:10pm Postural orthostatic tachyca rdia syndrome [POTS] acute November 29 2:10pm [facility] Work Phone: Evaluation note* Diagnosis Dizzy- Primary Dizziness and giddiness Cervicalgia Balance problem Other symptoms involving nervous and musculoskeletal systems [facility]* Diagnosis Dizziness- Primary Dizziness and giddiness Cervicalgia Headaches [facility] Narrative - Reported* Type Description Date Medical History Lumbar pain Medical History Dysfunctional uterine bleeding Medical History PCOS (polycystic ovarian syndrom e) Medical History Elevated blood pressure (not hyp ertension) Medical History Addis-Danlos syndrome Surgical History LAPAROSCOPY Surgical History TONSILLECTOMY Surgical History APPENDECTOMY Surgical History RIGHT ROTATOR CUFF Hospitalization History SEE SURGICAL HX [employer] Other Hospital course Narrative No data available for this section [facility] No data available for this section [facility] CenterProgress note No data available for this section [facility] CenterReason for referral (narrative)No reason for referral information availableL[facility] Work Phone: Summary Purpose Family History No Family History Records Found Relationship Condition Age at Onset Recorded Date/T long grandparent Malignant neoplasm Unknown Relationship Condition Age at Onset Recorded Date/T long Not Specified Vasovagal syncope Unknown father Hypertension Unknown Not Specified Malignant neoplasm Unknown Relationship Condition Age at Onset Recorded Date/T long mother Vasovagal syncope Unknown father Hypertension Unknown paternal grandmother Malignant neoplasm Unknown Relationship Condition Age at Onset Recorded Date/T long mother Vasovagal syncope Unknown father Hypertension Unknown Myocardial infarction Unknown paternal grandmother Malignant neoplasm Unknown Unknown Relationship Condition Age at Onset Recorded Date/T long father Hypertension Unknown Myocardial infarction Unknown paternal grandmother Malignant neoplasm Unknown Unknown mother Vasovagal syncope Unknown Advance Directives No Advanced Directives Records Found Advance Directive Response Recorded Date/ Time Advance Directives No June 17 10:10am Advance Directive Response Recorded Date/ Time Advance Directives No June 17 9:10am Chief Complaint and Reason for Visit Chief Complaint general check up g90.a Reason for Visit Adult ADHD Postural orthostatic tachycardia syndrome [POTS] Chief Complaint general check up g90.a Ear pain Reason for Visit Adult ADHD Postural orthostatic tachycardia syndrome [POTS] Chief Complaint general check up g90.a Ear pain Postural Orthostatic Tachycardia Syndrome Reason for Visit Adult ADHD Postural orthostatic tachycardia syndrome [POTS] Acute effusion of both middle ears Chief Complaint general check up g90.a Ear pain Postural Orthostatic Tachycardia Syndrome G90.A Reason for Visit Adult ADHD Postural orthostatic tachycardia syndrome [POTS] Acute effusion of both middle ears Dysfunctional uterine bleeding Addis-Danlos syndrome Elevated blood-pressure reading, without diagnosis of hypertension PCOS (polycystic ovarian syndrome) Postural orthostatic tachycardia syndrome [POTS] Chief Complaint g90.a Ear pain Postural Orthostatic Tachycardia Syndrome G90.A G90.A 6 Weeks Reason for Visit Acute effusion of jess th middle ears Dysfunctional uterine bleeding Addis-Danlos syndrome Elevated blood-pressure reading, without diagnosis of hypertension PCOS (polycystic ovarian syndrome) Postural orthostatic tachycardia syndrome [POTS] Dysfunctional uterine bleeding Addis-Danlos syndrome Elevated blood-pressure reading, without diagnosis of hypertension PCOS (polycystic ovarian syndrome) Postural orthostatic tachycardia syndrome [POTS] Chief Complaint G90.A G90.A 6 Weeks Ear pain Reason for Visit Dysfunctional uterin e bleeding Addis-Danlos syndrome Elevated blood-pressure reading, without diagnosis of hypertension PCOS (polycystic ovarian syndrome) Postural orthostatic tachycardia syndrome [POTS] Chief Complaint Admit Date 6 March 28, 2024 3:07pm 2 June 08, 2024 2:21pm Reason for Visit Admit Date Dysfunctional uterine bleeding March 28, 2024 3:07pm Addis-Danlos syndrome March 28 3:07pm Elevated blood-pressure read ing, without diagnosis of hypertension March 28, 2024 3:07pm PCOS (polycystic ovarian syndrome) Decem 2023 3:07pm Postural orthostatic tachycardia syndrom e [POTS] March 28, 2024 3:07pm Dysfunctional uterine bleeding June 08, 2024 2:21pm Addis-Danlos syndrome June 08 2:21pm Elevated blood-pressure read ing, without diagnosis of hypertension June 08, 2024 2:21pm PCOS (polycystic ovarian syndrome) Febru victoriano 2024 2:21pm Postural orthostatic tachycardia syndrom e [POTS] June 08, 2024 2:21pm Chief Complaint Admit Date 2 months June 08, 2024 2:21pm cough, congestion, sinus pressure July 30, 2024 9:55am Reason for Visit Admit Date Dysfunctional uterine bleeding June 08, 2024 2:21pm Addis-Danlos syndrome June 08 2:21pm Elevated blood-pressure read ing, without diagnosis of hypertension June 08, 2024 2:21pm PCOS (polycystic ovarian syndrome) Febru victoriano 2024 2:21pm Postural orthostatic tachycardia syndrom e [POTS] June 08, 2024 2:21pm Chief Complaint Admit Date 6 month f/u November 29, 2024 2: 10pm Reason for Visit Admit Date Dysfunctional uterine bleeding November 292024 2:10pm Addis-Danlos syndrome November 29, 2024 2:10pm Elevated blood-pressure read ing, without diagnosis of hypertension November 29, 2024 2:10pm PCOS (polycystic ovarian syndrome) Augus t 2024 2:10pm Postural orthostatic tachycardia syndrom e [POTS] November 29, 2024 2:10pm Additional Source Comments INFORMATION SOURCE (unrecogn ized section and content) DATE CREATED AUTHOR 10/25/2017 [employer] DATE CREATED AUTHOR AUTHOR'S ORGANIZ ATION 11/05/2017 [facility] DATE CREATED AUTHOR AUTHOR'S ORGANIZ ATION 10/09/2020 [facility] DATE CREATED AUTHOR AUTHOR'S ORGANIZ ATION 02/10/2022 [facility] DATE CREATED AUTHOR AUTHOR'S ORGANIZ ATION 10/13/2023 [facility] DATE CREATED AUTHOR AUTHOR'S ORGANIZ ATION 08/24/2024 [facility] [facility] EPIC DATE CREATED AUTHOR AUTHOR'S ORGANIZ ATION 11/06/2024 [facility] DATE CREATED AUTHOR AUTHOR'S ORGANIZ ATION 12/13/[address] [facility] Patient Care team informatio n (unrecognized section and content) Team Status: Active Member Role Status Dates Juan Montalvo MD Primary Care Provider Active Team Status: Inactive Member Role Status Dates Juan Montalvo MD Primary Care Provide r, Attending Provider Active Start: June 18, 2023 End: June 18, 2023 Team Status: Inactive Member Role Status Dates Juan Montalvo MD Primary Care Provide r, Attending Provider Active Start: July 05, 2023 End: July 05, 2023 Team Status: Inactive Member Role Status Dates Juan Montalvo MD Primary Care Provider Active Start: August 12, 2023 End: August 12, 2023 Larisa White APRN Attending Provider Active Start: August 12, 2023 End: August 12, 2023 Team Status: Active Member Role Status Dates Juan Montalvo MD Primary Care Provider Active Start: August 17, 2023 Afua Yu MD Attending Provider Active Sta rt: August 17, 2023 Team Status: Inactive Member Role Status Dates Juan Montalvo MD Primary Care Provide r, Referring Provider Active Start: August 17, 2023 End: August 17, 2023 Afua Yu MD Attending Provider Active Sta rt: August 17, 2023 End: August 17, 2023 Team Status: Inactive Member Role Status Dates Juan Montalvo MD Primary Care Provider Active Start: August 17, 2023 End: August 17, 2023 Afua Yu MD Attending Provider Active Sta rt: August 17, 2023 End: August 17, 2023 Team Status: Active Member Role Status Dates Afua Yu MD Hot Box Checker Active Juan Montalvo MD Primary Care Provider Active Team Status: Active Member Role Status Dates Juan Montalvo MD Primary Care Provide r, Other Provider Active Start: July 05, 2023 Iraj Dumont MD Attending Provider Active Start: July 04 Team Status: Inactive Member Role Status Dates Juan Montalvo MD Primary Care Provider Active Start: September 14, 2023 End: September 14, 2023 Afua Yu MD Attending Provider Active Sta rt: September 14, 2023 End: September 14, 2023 Iraj Dumont MD Referring Provider Activ e Start: September 14, 2023 End: September 14, 2023 Team Status: Active Member Role Status Dates Juan Montalvo MD Primary Care Provider Active Start: September 16, 2023 Afua Yu MD Other Provider Active Start: September 16, 2023 Iraj Dumont MD Attending Provider, Referring Provider Active Start: September 16, 2023 Team Status: Inactive Member Role Status Dates Juan Montalvo MD Primary Care Provider Active Start: September 28, 2023 End: September 28, 2023 Afua Yu MD Attending Provider Active Sta rt: September 28, 2023 End: September 28, 2023 Team Status: Inactive Member Role Status Dates Juan Montalvo MD Primary Care Provider Active Start: November 26, 2023 End: November 26, 2023 Lauren Rhodes APRN Attending Provider Active Start: November 26, 2023 End: November 26, 2023 Team Status: Active Member Role Status Dates Juan Montalvo MD Primary Care Provide r, Attending Provider Active Start: December 07, 2023 Team Status: Inactive Member Role Status Dates Juan Montalvo MD Primary Care Provider Active Start: December 13, 2023 End: December 13, 2023 Tanja Rodgers APRN Attending Provider Active Start: December 13, 2023 End: December 13, 2023 Team Status: Inactive Member Role Status Dates Juan Montalvo MD Primary Care Provide r, Attending Provider Active Start: December 28, 2023 End: December 28, 2023 Team Status: Active Member Role Status Dates Juan Montalvo MD Primary Care Provider Active Start: December 07, 2023 Srinivasa Marie DO Attending Provider Active Sta rt: December 07, 2023 Team Status: Inactive Member Role Status Dates Juan Montalvo MD Primary Care Provider Active Start: January 04, 2024 End: January 04, 2024 ALICIA Monterroso Attending Provider Active Start: January 04, 2024 End: January 04, 2024 Team Status: Active Member Role Status Dates Juan Montalvo MD Primary Care Provide r, Attending Provider Active Start: January 11, 2024 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 Relationship Specialty Start Date End Date Juan Montalvo MD [address] [place] [address] PCP - General 12/04/22 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 Relationship Specialty Start Date End Date Juan Montalvo MD [address] [place] [address] PCP - General 12/04/22 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 Relationship Specialty Start Date End Date Juan Montalvo MD [address] [place] [address] PCP - General 12/04/22 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 Relationship Specialty Start Date End Date Juan Montalvo MD [address] [place] [id number] PCP - General 12/04/22 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 Relationship Specialty Start Date End Date Juan Montalvo MD [address] [place] [address] PCP - General 12/04/22 Team Status: Inactive Member Role Status Dates Juan Montalvo MD Primary Care Provider Active Start: March 28, 2024 End: March 28, 2024 Afua Yu MD Attending Provider Active Sta rt: March 28, 2024 End: March 28, 2024 Team Status: Inactive Member Role Status Dates Juan Montalvo MD Primary Care Provider Active Start: June 08, 2024 End: June 08, 2024 Afua Yu MD Attending Provider Active Sta rt: June 08, 2024 End: June 08, 2024 Team Status: Inactive Member Role Status Dates Juan Montalvo MD Primary Care Provider Active Start: July 30, 2024 End: July 30, 2024 Lauren Rhodes APRN Attending Provider Active Start: July 30, 2024 End: July 30, 2024 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 Relationship Specialty Start Date End Date Juan Montalvo MD [address] [place] [address] Referring Family Medicine 07/04/24 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 Relationship Specialty Start Date End Date Juan Montalvo MD PCP - General 12/04/22 Srinivasa Pop DO [address] [place] [address] Referring Physician Otolaryngology 08/14/24 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 Relationship Specialty Start Date End Date Juan Montalvo MD PCP - General 12/04/22 Srinivasa Pop DO [address] [place] [address] Referring Physician Otolaryngology 08/14/24 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 Relationship Specialty Start Date End Date Juan Montalvo MD [address] [facility] [id number] PCP - General Family Medicine 08/18/24 Srinivasa Pop DO [address] [place] [address] Referring Physician Otolaryngology 08/14/24 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 Relationship Specialty Start Date End Date Juan Montalvo MD [address] [facility] [phone] PCP - General Family Medicine 08/18/24 Srinivasa Pop, DO [address] [place] [address] Referring Physician Otolaryngology 08/14/24 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 Relationship Specialty Start Date End Date Juan Montalvo MD [address] [place] [address] Referring Family Medicine 07/04/24 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 Relationship Specialty Start Date End Date Juan Montalvo MD [address] [place] [address] Referring Family Medicine 07/04/24 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 Relationship Specialty Start Date End Date Juan Montalvo MD [address] [place] [address] Referring Family Medicine 07/04/24 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 Relationship Specialty Start Date End Date Juan Montalvo MD [address] [place] [address] Referring Family Medicine 07/04/24 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 Relationship Specialty Start Date End Date Juan Montalvo MD [address] [place] [address] Referring [employer] Medicine 07/04/24 Team Status: Inactive Member Role Status Dates Juan Montalvo MD Primary Care Provider Active Start: November 29, 2024 End: November 29, 2024 Delphine Leyva APRN Attending Provider Active Start: November 29, 2024 End: November 29, 2024 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 Relationship Specialty Start Date End Date Juan Montalvo MD [address] [place] [address] Referring [facility] 07/04/24 REASON FOR VISIT (unrecogniz ed section and content) Reason Comments Physical Therapy Specialty Diagnoses / Procedures Referred By Contac t Referred To Contact [facility] Diagnoses Dizzy Vertigo Procedures CONSULT TO PHYSICAL THERAPY PHYSICAL THERAPY EVALUATION HIGH COMPLEX [address] [place] [address] [address] [place] [address] Phone: tel: fax: [facility] [address] [place] [address] Referral ID Status Reason Start Date Expiration Date Visits Requested Visits Authorized [id number] Authorized Auto-Generat ed Referral 10/17/2024 10/16/2025 40 40 Reason Comments Otitis Media Reason Comments Meniere's Disease Follow up audio 01/18 09/09 Reason Onset Date Comments appt question 05/29/2024 Reason Comments trouble swallowing Reason Comments New Patient Reason Comments Hearing Loss 6 month follow up au alban 08/14/24 Reason Comments New Patient Headaches Dizziness Specialty Diagnoses / Procedures Referred By Contac t Referred To Contact Neurology Diagnoses Nonintractable headache, unspecified chronicity pattern, unspecified headache type Dizzy Procedures CONSULT TO NEUROLOGY OFFICE/OUTPATIENT NEW HIGH MDM 60 MINUTES Tony Wallace PA-C [address] [place] [address] Phone: tel: fax: Referral ID Status Reason Start Date Expiration Date V isits Requested Visits Authorized [id number] Closed PCP Requested Referral 08/01/2024 08/01/2025 1 1 Reason Comments PT Eval Reason Comments Follow Up Vertigo Reason Comments PT Progress Note Specialty Diagnoses / Procedures Referred By Contac t Referred To Contact [facility] Diagnoses Dizzy Vertigo Procedures PHYSICAL THERAPY EVALUATION HIGH COMPLEX [address] [place] [address] [address] [place] [address] Phone: tel: fax: [facility] [address] [place] [address] Goals (unrecognized section and content) Goals may be documented in a n alternate section Source Comments (unrecognize d section and content) In the event this informatio n is protected by the Federal Confidentiality of Alcohol and Drug Abuse Patient Records regulations: The Federal rules restrict any use of the information to criminally investigate or prosecute any alcohol or drug abuse patient.[facility] the event this information is protected by the Federal Confidentiality of Alcohol and Drug Abuse Patient Records regulations: The Federal rules restrict any use of the information to criminally investigate or prosecute any alcohol or drug abuse patient.[facility] the event this information is protected by the Federal Confidentiality of Alcohol and Drug Abuse Patient Records regulations: The Federal rules restrict any use of the information to criminally investigate or prosecute any alcohol or drug abuse patient.[facility] the event this information is protected by the Federal Confidentiality of Alcohol and Drug Abuse Patient Records regulations: The Federal rules restrict any use of the information to criminally investigate or prosecute any alcohol or drug abuse patient.[facility] the event this information is protected by the Federal Confidentiality of Alcohol and Drug Abuse Patient Records regulations: The Federal rules restrict any use of the information to criminally investigate or prosecute any alcohol or drug abuse patient.[facility] the event this information is protected by the Federal Confidentiality of Alcohol and Drug Abuse Patient Records regulations: The Federal rules restrict any use of the information to criminally investigate or prosecute any alcohol or drug abuse patient.[facility] the event this information is protected by the Federal Confidentiality of Alcohol and Drug Abuse Patient Records regulations: The Federal rules restrict any use of the information to criminally investigate or prosecute any alcohol or drug abuse patient.[facility] the event this information is protected by the Federal Confidentiality of Alcohol and Drug Abuse Patient Records regulations: The Federal rules restrict any use of the information to criminally investigate or prosecute any alcohol or drug abuse patient.[facility] the event this information is protected by the Federal Confidentiality of Alcohol and Drug Abuse Patient Records regulations: The Federal rules restrict any use of the information to criminally investigate or prosecute any alcohol or drug abuse patient.[facility] FOR RECORDS PERTAINING TO PATIENTS WHO ARE OR HAVE BEEN ENROLLED IN A CHEMICAL DEPENDENCY/SUBSTANCEABUSE PROGRAM, SOME INFORMATION MAY BE OMITTED. This clinical summary was aggregated from multiple sources. Caution should be exercised in using it in the provision of clinical care. This summary normalizes information from multiple sources, and as a consequence, information in this document may materially change the coding, format and clinical context of patient data. In addition, data may be omitted in some cases. CLINICAL DECISIONS SHOULD BE BASED ON THE PRIMARY CLINICAL RECORDS. [facility] provides no warranty or guarantee of the accuracy or completeness of information in this document.
--- NOTE | 2024-12-19 11:56 | ECG_ITS ---
[facility] Test Date: 2024-12-19 Pat Name: JADA GILES Department: Room: - Gender: Female Director Of Content And Programming: : 1985 Requested By: [id number] Order Number: [id number] Reading MD: CHE FLORES Measurements Intervals [place] Rate: 118 P: 34 GA: 142 QRS: 32 QRSD: 70 T: 39 QT: 312 QTc: 382 Interpretive Statements 1120 Sinus tachycardia 9140 abnormal rhythm ECG Compared to ECG 12/07/2023 03:38:38 Sinus rhythm no longer present Electronically Signed On 12-20-2024 13:53:40 EDT by CHE FLORES
--- NOTE | 2024-12-19 12:06 | ED.GENADUL1 ---
HPI HPI - General Adult General Chief complaint: Arrhythmia/Palpitations Stated complaint: FEVER NAUSEA VOMITING HIGH HEART RATE Time Seen by Provider: 12/19/24 11:40 Source: patient Mode of arrival: walk-in Limitations: no limitations History of Present Illness HPI narrative: Patient is a 39-year-old female presenting to the emergency department for evaluation of a sore throat and nausea/vomiting. Patient states that over the last 2 weeks she has had a persistent sore throat. 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 She states her throat feels scratchy and is somewhat painful when she swallows. She is still eating and drinking normally without issues. Additionally, the patient states that in the middle of the night last night she felt nauseous, had few episodes of vomiting, has decreased p.o. intake, and felt feverish. She took her temperature at home which ranged from 99.5 to 100 ?F. Patient states she feels like her heart is racing. She has been worked up for tachycardia in the past by cardiology. Working diagnosis include POTS per the patient. She denies any associated dizziness, syncope, shortness of breath, or chest pain. No abdominal pain, constipation, diarrhea. LMP was a week ago. Related Data Home Medications ?Medication ?Instructions ?Recorded ?Confirmed multivitamin (Daily Multi-Vitamin 1 tab PO DAILY 12/19/24 12/19/24 tablet) valsartan 40 mg tablet 40 mg PO DAILY 12/19/24 12/19/24 Previous Rx's ?Medication ?Instructions ?Recorded ondansetron 4 mg disintegrating 4 mg PO Q8H PRN nausea and 12/19/24 tablet vomiting 5 days #10 tabs Allergies Allergy/AdvReac Type Severity Reaction Status Date / Time adhesive Allergy Unknown Unknown Verified 12/19/24 11:33 latex Allergy Unknown Unknown Verified 12/19/24 11:33 levofloxacin (From Levaquin) Allergy Unknown Verified 12/19/24 11:33 Review of Systems ROS Status of ROS 10 or more systems reviewed and unremarkable except as noted in history and below PFSH PFSH Social History Little interest or pleasure in doing things: not at all Feeling down, depressed, or hopeless: not at all Exam Narrative Exam Narrative: CONSTITUTIONAL: Patient appears fatigued, but nontoxic. Mentating appropriately and answering/following commands. SKIN: Was warm and dry, nondiaphoretic. EYES: Sclerae white. No conjunctival exudates. EARS, NOSE, THROAT: Dry mucous membranes. No tonsillar large with exudates. Uvula midline. No peritonsillar abscess. No trismus. No neck swelling. Bilateral tympanic membranes are pearly butcher without erythema or bulging. No rhinorrhea. RESPIRATORY: Clear to auscultation bilaterally, no wheezes, crackles, or stridor, no use of accessory muscles CARDIOVASCULAR: Tachycardia rate and regular rhythm. There is no S3, S4, murmur, rub. GASTROINTESTINAL: Abdomen is soft, nontender, and nondistended. No rebound tenderness or guarding MUSCULOSKELETAL: No peripheral edema. NEUROLOGIC: Patient is awake and alert. Facies were symmetrical. Constitutional Vital Signs, click to edit/add: Last Vital Signs Temp 98.5 F 12/19/24 11:33 Pulse 120 H 12/19/24 12:40 Resp 24 H 12/19/24 12:40 BP 129/76 12/19/24 12:40 Pulse Ox 100 12/19/24 11:33 O2 Del Method Room Air 12/19/24 11:33 Course Vital Signs Vital signs: Vital Signs Temperature 98.5 F 12/19/24 11:33 Pulse Rate 125 H 12/19/24 11:33 Respiratory Rate 18 12/19/24 11:33 Blood Pressure 118/85 12/19/24 11:33 Pulse Oximetry 100 12/19/24 11:33 Oxygen Delivery Method Room Air 12/19/24 11:33 Temperature 98.5 F 12/19/24 11:33 Pulse Rate 120 H 12/19/24 12:40 Respiratory Rate 24 H 12/19/24 12:40 Blood Pressure 129/76 12/19/24 12:40 Pulse Oximetry 100 12/19/24 11:33 Oxygen Delivery Method Room Air 12/19/24 11:33 Medical Decision Making MDM Narrative Medical decision making narrative: Patient is a 39-year-old female presenting to the emergency department for sore throat x 2 weeks and nausea/vomiting beginning last night. Vital signs on arrival were significant for tachycardia, otherwise were within normal limits. She is afebrile and hemodynamically stable. Examination as noted above. My clinical impression is that the patient has been experiencing mild URI symptoms and is now having nausea/vomiting likely to gastroenteritis. Patient's exam is not consistent with surgical etiologies of abdominal pain such as appendicitis, cholecystitis, or perforated viscus. She does appear dehydrated on exam, therefore IV was established and laboratory studies were obtained to rule out underlying electrolyte/metabolic derangement. She was treated symptomatically with IV Zofran, oral dexamethasone, and 1 L bolus normal saline. In regards to the patient's tachycardia, she has been worked up by cardiology in the past. She states that she becomes tachycardic randomly throughout the day, and exacerbated by exertion or feeling ill/stress - which I feel is the case today. I don't believe her tachycardia is related to severe infection as she looks generally well and non-toxic with all other vitals being normal. 12 Lead EKG: Sinus tachycardia at a rate of 118. Normal axis. No ST segment elevations. QRS, MD, and QTc interval within normal limits. No S1Q3T3. Final impression: Sinus tachycardia without evidence of acute myocardial ischemia. Laboratory studies were unremarkable. No significant electrolyte or metabolic derangement. No evidence of acute kidney injury. No anemia, leukocytosis, or thrombocytopenia. No transaminitis or hyperbilirubinemia. On reevaluation, patient states her nausea is improved and she feels comfortable being discharged home. We did have a discussion regarding her persistent tachycardia. 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 Given that her workup was unremarkable and she looks well, I do believe this is reasonable. Return precautions were given including any new or concerning symptoms. She was given a prescription for Zofran ODT. Patient understands and agrees to plan. FINAL IMPRESSION: #Acute nausea and vomiting #Acute viral URI #Acute tachycardia DISPOSITION: Discharged home CONDITION: Fair Medical Records Medical records reviewed: Yes I reviewed the patient's medical records Lab Data Lab results reviewed: Yes I reviewed the patient's lab results Labs: Lab Results 12/19/24 Range/Units 12:05 WBC 8.3 (4.0-11.0) 10^3/uL RBC 4.46 (4.20-5.40) 10^6/uL Hgb 13.5 (12.0-16.0) g/dL Hct 39.2 (36.0-48.0) % MCV 87.9 (81.0-99.0) fL MCH 30.3 (26.7-34.0) pg MCHC 34.4 (29.9-35.2) g/dL RDW 12.1 (11.0-15.0) % Plt Count 293 (150-450) 10^3/uL MPV 10.8 (9.5-13.5) fL Seg Neuts % (Manual) 90.0 H (43.0-75.0) Lymphocytes % (Manual) 6.0 L (20.5-60.0) % Monocytes % (Manual) 4.0 (1.7-12.0) % Eosinophils % (Manual) 0.0 L (0.9-7.0) % Basophils % (Manual) 0.0 L (0.2-2.0) % Neutrophils # (Manual) 7.47 H (1.4-6.5) 10^3/uL Lymphocytes # (Manual) 0.49 L (1.20-3.80) 10^3/uL Monocytes # (Manual) 0.33 (0.30-0.80) 10^3/uL Eosinophils # (Manual) 0.00 (0.00-0.70) 10^3/uL Basophils # (Manual) 0.00 (0.00-0.10) 10^3/uL Sodium 138 (136-145) mmol/L Potassium 3.9 (3.5-5.1) mmol/L Chloride 104 (98-107) mmol/L Carbon Dioxide 25.5 (21.0-32.0) mmol/L Anion Gap 12.4 BUN 10.0 (7.0-18.0) mg/dL Creatinine 0.78 (0.55-1.02) mg/dL Est GFR ( Amer) >60 (>=60 mL/min/1.73m^2) Est GFR (Non-Af Amer) >60 (>=60 mL/min/1.73m^2) BUN/Creatinine Ratio 12.8 Glucose 97 (74-106) mg/dL Calcium 8.8 (8.5-10.1) mg/dL Magnesium 1.9 (1.8-2.4) mg/dL ECG Data Attestation: I personally reviewed and interpreted this ECG as follows: Discharge Plan Discharge Chief Complaint: Arrhythmia/Palpitations Clinical Impression: Gastroenteritis Patient Disposition: Home, Self-Care Time of Disposition Decision: 12:49 Condition: Fair Mode of Transportation: Private Vehicle Prescriptions / Home Meds: New ondansetron 4 mg tablet,disintegrating 4 mg PO Q8H PRN (Reason: nausea and vomiting) 5 Days Qty: 10 0RF No Action valsartan 40 mg tablet 40 mg PO DAILY multivitamin [Daily Multi-Vitamin] Tablet 1 tab PO DAILY Print Language: Bengali Instructions: Acute Nausea and Vomiting (ED) Referrals: Jessica Dsouza MD [Primary Care Provider, Family Practice] - 1 week
[2024-12-19] MEDS: DEXAMETHASONE 4 MG TABLET 8 MG PO (12:08)
[2024-12-19] MEDS: 0.9 % SODIUM CHLORIDE 1,000 ML 1000 ML IV (12:08)
[2024-12-19 12:21] LABS: Hematocrit 39.2 % (36.0-48.0); Hemoglobin 13.5 g/dL (12.0-16.0); Mean Corpuscular HGB Conc 34.4 g/dL (29.9-35.2); Mean Corpuscular Hemoglobin 30.3 pg (26.7-34.0); Mean Corpuscular Volume 87.9 fL (81.0-99.0); Platelet Count 293 10^3/uL (150-450); Red Blood Count 4.46 10^6/uL (4.20-5.40); White Blood Count 8.3 10^3/uL (4.0-11.0)
[2024-12-19 12:29] LABS: Anion Gap 12.4; Blood Urea Nitrogen 10.0 mg/dL (7.0-18.0); Calcium 8.8 mg/dL (8.5-10.1); Carbon Dioxide 25.5 mmol/L (21.0-32.0); Chloride 104 mmol/L (98-107); Estimated GFR (African America >60 (>=60 mL/min/1.73m^2); Estimated GFR (Non-African Ame >60 (>=60 mL/min/1.73m^2); Glucose 97 mg/dL (74-106); Magnesium 1.9 mg/dL (1.8-2.4); Potassium 3.9 mmol/L (3.5-5.1); Sodium 138 mmol/L (136-145)
--- NOTE | 2024-12-19 12:42 | PC.NURSE ---
pt reports has been unable to take BP meds d/t nausea at home.
[2024-12-19 12:49] LABS: Basophils Abs Manual 0.00 10^3/uL (0.00-0.10); Basophils Percent Manual 0.0 % (0.2-2.0); Eosinophils Absolute Manual 0.00 10^3/uL (0.00-0.70); Eosinophils Percent Manual 0.0 % (0.9-7.0); Lymphocytes Absolute Manual 0.49 10^3/uL (1.20-3.80); Lymphocytes Percent Manual 6.0 % (20.5-60.0); Monocytes Absolute Manual 0.33 10^3/uL (0.30-0.80); Monocytes Percent Manual 4.0 % (1.7-12.0); Segmented Neut Absolute Manual 7.47 10^3/uL (1.4-6.5); Segmented Neutrophils % Manual 90.0 (43.0-75.0)
--- NOTE | 2024-12-19 13:16 | PC.NURSE ---
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 pt plans to call oil mixer PATSY re: this ER visit. No obvious cardiac or resp distress observed at time of d/c.
== END 2024-12-19 13:21 | disposition home or self-care (01) ==
PROVIDERS: Emergency Provider Student in an Organized Health Care Education/Training Program; PCP Family Medicine
DX: K52.9 Noninfective gastroenteritis and colitis, unspecified (principal); R00.0 Tachycardia, unspecified; J06.9 Acute upper respiratory infection, unspecified
CPT/HCPCS: 36415; 80048; 83735; 85007; 85027; 93005; 96361; 96374; 99284; J2405; J8540